=== PATIENT | male | born 1990 | race Two or more races ===

== ENCOUNTER 2016-07-15 15:00 | Inpatient (IN) | payer MEDICAID ==
[~2016-07-15] VITALS: Ht 152.4 cm; Wt 63.5 kg
[~2016-07-15 15:00] MED LIST: Albuterol ud Inhalation ONE; Ipratropium 0.02% Inh Soln 2.5ml UD ONE
[2016-07-15 15:10] VITALS: BP 124/88
[2016-07-15] MEDS ORDERED: Morphine Sulfate 2mg/ml Inj IVP ONE (15:30)
[2016-07-15 15:44] LABS: MEAN CORPUSCULAR HEMOGLOBIN 30.5 PG (27.0-31.0); MEAN CORPUSCULAR HGB CONC 34.3 G/DL (32.0-36.0); MEAN CORPUSCULAR VOLUME 89 FL (80-99); MEAN PLATELET VOLUME 6.2 FL (6.5-10.1); PLATELET COUNT 421 K/UL (150-450); RED BLOOD COUNT 5.78 M/UL (4.70-6.10); RED CELL DISTRIBUTION WIDTH 11.8 % (11.6-14.8)
[2016-07-15 15:49] LABS: WHITE BLOOD COUNT 23.1 K/UL (4.8-10.8)
[2016-07-15 15:59] LABS: ALANINE AMINOTRANSFERASE 52 U/L (3-41); ALBUMIN/GLOBULIN RATIO 1.6 (1.0-2.7); ANION GAP 20 (5-15); ASPARTATE AMINO TRANSFERASE 39 U/L (5-40); CALCIUM 10.4 mg/dL (8.6-10.2); CARBON DIOXIDE 23 mEQ/L (20-30); CHLORIDE 96 mEQ/L (98-107); CREATININE 1.3 mg/dL (0.7-1.2); GLOMERULAR FILTRATION RATE > 60 mL/min (>60); HEMOLYSIS 11; LIPASE 28 U/L (< 60); POTASSIUM 3.7 mEQ/L (3.4-4.9); SODIUM 139 mEQ/L (135-145); TOTAL PROTEIN 9.2 g/dL (6.6-8.7)
[2016-07-15 16:13] LABS: BAND NEUTROPHILS % (MANUAL) 9 % (0-8); BASOPHILS % (MANUAL) 0 % (0-2); EOSINOPHILS % (MANUAL) 0 % (0-3); LYMPHOCYTES % (MANUAL) 28 % (20-45); NEUTROPHILS % (MANUAL) 59 % (45-75); PLATELET ESTIMATE INCREASED; PLATELET MORPHOLOGY NORMAL; TOTAL CELLS COUNTED 100
[2016-07-15 17:14] VITALS: BP 116/81
[2016-07-15] MEDS ORDERED: cefOXitin 1gm Inj ONE (17:43)
[2016-07-15] MEDS: LR 1000ml 1,000 ML IV SCH ×2 (17:47→23:11)
[2016-07-15] MEDS ORDERED: cefOXitin Sod 1 GM in D5W 55 ML IVPB ONE (18:00)
--- NOTE | 2016-07-15 18:14 | Emergency Room Report ---
History of Present Illness General Chief Complaint: Nausea Source: EMS Present Illness HPI The patient is a 25-year-old male brought in by his uncle for nausea, vomiting, and right lower quadrant pain which began this morning. The patient states that he was feeling fine yesterday and suddenly developed nausea and vomiting which was then followed by the abdominal pain. Pain is localized to the right lower cord and it is described as a 10 out of 10 dull ache. Pain worse with movement and touch. Pain does not radiate.The patient also admits to diarrhea. The patient has been feeling chills but denies fever. The patient states that he has felt this way several times over the past few years but has never been diagnosed with anything. The patient denies any medical history Allergies: Coded Allergies: No Known Allergies (Unverified , 07/15/16) Patient History Past Medical History: see triage record Pertinent Family History: none Reviewed Nursing Documentation: PMH: Agreed, PSxH: Agreed Nursing Documentation-PMH Past Medical History: No Stated History Review of Systems All Other Systems: negative except mentioned in HPI Physical Exam Vital Signs Date Time Temp Pulse Resp B/P Pulse Ox O2 Delivery O2 Flow Rate FiO2 07/15/16 14:53 97 18 124/88 98 Room Air 07/15/16 17:14 97.0 Sp02 EP Interpretation: reviewed, normal General Appearance: GCS 15, mild distress, lethargic Head: normocephalic, atraumatic Eyes: bilateral eye PERRL, bilateral eye normal inspection ENT: hearing grossly normal, normal pharynx, no angioedema, normal voice Neck: full range of motion, supple/symm/no masses Respiratory: chest non-tender, lungs clear, normal breath sounds, speaking full sentences Cardiovascular #1: regular rate, rhythm, no edema Gastrointestinal: normal bowel sounds, soft, non-distended, no guarding, no rebound, tenderness - RLQ Genitourinary: normal inspection, no CVA tenderness Musculoskeletal: back normal, gait/station normal, normal range of motion, non- tender Neurologic: alert, oriented x3, responsive, motor strength/tone normal, sensory intact, speech normal Psychiatric: judgement/insight normal, memory normal, mood/affect normal, no suicidal/homicidal ideation Skin: normal color, no rash, warm/dry, well hydrated Lymphatic: no adenopathy Medical Decision Making PA Attestation Dr. Trevino is my supervising physician. Patient management was discussed with my supervising physician Diagnostic Impression: Primary Impression: Abdominal pain ER Course The patient is a 25-year-old male brought in by his uncle for nausea, vomiting, and right lower quadrant pain which began this morning Differential diagnoses considered include but not limited to gastroenteritis, pancreatitis, appendicitis Physical exam: The patient is in mild distress and appears lethargic. HEENT exam is unremarkable Lungs are clear to auscultation bilaterally Skin is warm and dry. No rash Abdomen is soft. There is localized tenderness to palpation over the right lower quadrant. No guarding. Normal bowel sounds. Lab work shows significant leukocytosis at 23,000. The patient is given IV fluids, Zofran, and morphine and is feeling better. Pt placed on NPO CT of the abdomen pelvis has findings consistent with gastroenteritis. There is also an appendicolith but no signs of appendicitis. Dr. Trevino spoke with Dr. Quesada at 18:15. He will come to ER to see the patient. Dr. Quesada does not think this is appendicitis and thinks Hx and findings are more consistent with gastroenteritis. The patient will be admitted in serious but stable condition Laboratory Tests Test 07/15/16 15:23 07/15/16 18:07 White Blood Count 23.1 K/UL (4.8-10.8) *H Red Blood Count 5.78 M/UL (4.70-6.10) Hemoglobin 17.6 G/DL (14.2-18.0) Hematocrit 51.4 % (42.0-52.0) Mean Corpuscular Volume 89 FL (80-99) Mean Corpuscular Hemoglobin 30.5 PG (27.0-31.0) Mean Corpuscular Hemoglobin Concent 34.3 G/DL (32.0-36.0) Red Cell Distribution Width 11.8 % (11.6-14.8) Platelet Count 421 K/UL (150-450) Mean Platelet Volume 6.2 FL (6.5-10.1) L Neutrophils (%) (Auto) % (45.0-75.0) Lymphocytes (%) (Auto) % (20.0-45.0) Monocytes (%) (Auto) % (1.0-10.0) Eosinophils (%) (Auto) % (0.0-3.0) Basophils (%) (Auto) % (0.0-2.0) Differential Total Cells Counted 100 Neutrophils % (Manual) 59 % (45-75) Lymphocytes % (Manual) 28 % (20-45) Monocytes % (Manual) 4 % (1-10) Eosinophils % (Manual) 0 % (0-3) Basophils % (Manual) 0 % (0-2) Band Neutrophils 9 % (0-8) H Platelet Estimate Increased H Platelet Morphology Normal Red Blood Cell Morphology Normal Urine Color Pale yellow Urine Appearance Clear Urine pH 6.5 (4.5-8.0) Urine Specific [place] 1.010 (1.005-1.035) Urine Protein 2+ (NEGATIVE) H Urine Glucose (UA) Negative (NEGATIVE) Urine Ketones Negative (NEGATIVE) Urine Occult Blood Negative (NEGATIVE) Urine Nitrite Negative (NEGATIVE) Urine Bilirubin Negative (NEGATIVE) Urine Urobilinogen Normal MG/DL (0.0-1.0) Urine Leukocyte Esterase Negative (NEGATIVE) Urine RBC 0 /HPF (0 - 0) Urine WBC 0-2 /HPF (0 - 0) Urine Squamous Epithelial Cells None /LPF (NONE/OCC) Urine Bacteria Few /HPF (NONE) Sodium Level 139 mEQ/L (135-145) Potassium Level 3.7 mEQ/L (3.4-4.9) Chloride Level 96 mEQ/L (98-107) L Carbon Dioxide Level 23 mEQ/L (20-30) Anion Gap 20 (5-15) H Blood Urea Nitrogen 17 mg/dL (7-23) Creatinine 1.3 mg/dL (0.7-1.2) H Estimate Glomerular Filtration Rate > 60 mL/min (>60) Glucose Level 156 mg/dL (74-106) H Calcium Level 10.4 mg/dL (8.6-10.2) H Total Bilirubin 0.4 mg/dL (0.0-1.2) Aspartate Amino Transferase (AST) 39 U/L (5-40) Alanine Aminotransferase (ALT) 52 U/L (3-41) H Alkaline Phosphatase 116 U/L (40-129) Total Protein 9.2 g/dL (6.6-8.7) H Albumin 5.7 g/dL (3.5-5.2) H Globulin 3.5 g/dL Albumin/Globulin Ratio 1.6 (1.0-2.7) Lipase 28 U/L (< 60) Urine Opiates Screen Positive (NEGATIVE) H Urine Barbiturates Screen Negative (NEGATIVE) Phencyclidine (PCP) Screen Negative (NEGATIVE) Urine Amphetamines Screen Negative (NEGATIVE) Urine Benzodiazepines Screen Negative (NEGATIVE) Urine Cocaine Screen Negative (NEGATIVE) Urine Marijuana (THC) Screen Positive (NEGATIVE) H Prothrombin Time 10.8 SEC (9.30-11.50) Prothrombin Time INR 1.1 (0.9-1.1) PTT 25 SEC (23-33) Lab Results Impression CBC show significant leukocytosis. Otherwise unremarkable CMP is unremarkable Urinalysis is unremarkable. No signs of infection Drug screen is positive for marijuana CT/MRI/US Diagnostic Results CT/MRI/US Diagnostic Results : Imaging Test Ordered: CT abd/pelvis with IV contrast Impression Per radiologist: There is increased fluid contents with variable distention of stomach, small bowel, and colon. Mild mural thickening of the small bowel. There is prominent appendicolith but no apparent appendicitis. Last Vital Signs Date Time Temp Pulse Resp B/P Pulse Ox O2 Delivery O2 Flow Rate FiO2 07/15/16 17:14 97.0 76 18 116/81 98 Room Air Status: improved Disposition: ADMITTED INPATIENT Condition: Stable RED MOBLEY Jul 15, 2016 18:14
[2016-07-15 18:34] LABS: APPEARANCE,URINE CLEAR; KETONES,URINE NEGATIVE (NEGATIVE); LEUKOCYTE ESTERASE ,URINE NEGATIVE (NEGATIVE); NITRITE,URINE NEGATIVE (NEGATIVE); PH,URINE 6.5 (4.5-8.0); PROTEIN,URINE 2+ (NEGATIVE); UROBILINOGEN,URINE NORMAL MG/DL (0.0-1.0)
[2016-07-15 18:36] LABS: INR 1.1 (0.9-1.1); PROTHROMBIN TIME 10.8 SEC (9.30-11.50)
[2016-07-15 19:04] LABS: RBC,URINE 0 /HPF (0 - 0); WBC,URINE 0-2 /HPF (0 - 0)
[2016-07-15 19:05] LABS: BACTERIA,URINE FEW /HPF
--- NOTE | 2016-07-15 19:15 | General Progress Note ---
Progress Note Progress Note 25 y/o male with hx 6 + years of intermittent abd pain, diarrhea, nausea and vomiting last several days, no fever or chills. Pt came to ED because of exacerbation of old sx. PMHx: no hx IBD, no hx GI bleeding , no hx PUD or gastritis. Exam: VS Stable, afebrile. Lungs: clear Abdomen: soft, BS hyperactive, minimal tenderness RLQ, no guarding, - psoas sign. WBC 23K CAT scan abdomen:sl thickened SB, mostly distal, no appendiceal inflammation. Poss small fecalith. Impression: Viral gastroenteritis vs IBD (doubt IBD), r/o parasitic problem. No evidence clinically of appendicitis or any surgical process. Hydration, observation, no surgery planned at this time, repeat CBC. NIRMALA JOSEPH Jul 15, 2016 19:15
[2016-07-15 19:30] VITALS: BP 132/76
[2016-07-15 22:57] VITALS: BP 122/80
[2016-07-15] MEDS ORDERED: NKM (22:58)
--- NOTE | 2016-07-15 23:38 | Consultation ---
DATE OF CONSULTATION: 07/15/2016 SURGICAL CONSULTATION CONSULTING PHYSICIAN: Timothy Quesada M.D. ATTENDING PHYSICIAN: Not on the chart yet. HISTORY OF PRESENT ILLNESS: The patient is a 25-year-old, black male, who is a very poor historian, and states that approximately 6 years ago or before that when he was still lived in [place], he developed intermittent episodes of abdominal pain with a crampy nature, with associated nausea, vomiting, and diarrhea. Now the same type of problem began in the last few days, but exacerbated today to the point where he came to the emergency room after severe nausea, vomiting and diarrhea and 6 to 10 episodes of very watery bolus. The patient was seen in the emergency room and the patient's assessment saw him obtain limited history probably because of a language barrier, since the patient speaks no Czech. Once I interviewed him, he told me the whole history of several years of diffuse abdominal pain intermittently, no blood in the stool, and some nausea and vomiting and occasional blood when he throws up but because of " ". There is no history of weight loss, no history of melena, or hematochezia. There is no history of chronic cystic disease or inflammatory bowel disease. PAST MEDICAL HISTORY: As above. MEDICATIONS: None. ALLERGIES: None known. REVIEW OF SYSTEMS: HEENT: No headaches, tinnitus, or dysphagia. Cardiopulmonary: No history of chest pain, shortness of breath, cough, or sputum. Gastrointestinal: As above. Genitourinary: No dysuria, hematuria, or obstructive symptoms. PHYSICAL EXAMINATION: VITAL SIGNS: Blood pressure is 110/78, temperature is 97.7 degrees, pulse is 80, respirations are 16 and unlabored. GENERAL: The patient is a well developed, well nourished, middle aged, young dark skin male, in no distress. HEENT: Normal though mucosa was dry. The mouth and throat were clear. NECK: Supple. LUNGS: Clear. HEART: Rhythmic and regular. ABDOMEN: Soft and flat. Bowel sounds are hyperactive. No obstructive signs. There is 1+ right lower quadrant tenderness into the suprapubic area. No mass. No rebound or guarding. There is no flank tenderness. Psoas sign is negative. LABORATORY AND DIAGNOSTIC DATA: White blood count is 23,000, hemoglobin 13, and hematocrit 42. Electrolytes are normal. A CT of the abdomen reveals normal-sized appendix, tiny appendicolith, no inflammatory changes or stranding, some thickening of small bowel stretched in the distal area consistent with possible inflammatory changes from a viral syndrome, gout, inflammatory bowel disease. IMPRESSION: Acute abdominal pain, nausea, vomiting, and diarrhea, most likely secondary to viral gastroenteritis or other similar viral syndrome. There is nothing at this point to support inflammatory bowel disease, but it has to be conservative with differential diagnosis. More important, there is no obvious need for any surgical intervention at this time. There is no evidence of an acute surgical process. The appendix is normal in size and there is a fecalith, but no inflammatory changes. The white count is probably secondary to a viral syndrome. We will follow the patient. The patient will be hydrated, bowel rest instituted and some cultures obtained to make sure he does not have either parasitic or bacterial infection such as Shigella or Salmonella. Timothy Quesada M.D. DR: SUHAS JOB#: [id number] CC:
[2016-07-16] VITALS: BP 96/63
[2016-07-16] MEDS ORDERED: Unasyn 3gm Inj IV SCH
[2016-07-16] MEDS: LR 1000ml 1,000 ML IV SCH ×2 (00:12→00:50)
[2016-07-16] MEDS ORDERED: Morphine Sulfate 2mg/ml Inj IVP PRN (00:30)
[2016-07-16] MEDS ORDERED: Norco 10mg/325mg tab ORAL PRN (00:45)
[2016-07-16] MEDS ORDERED: Unasyn 3gm Inj ONE ×2 (01:57→06:36)
[2016-07-16] MEDS: Unasyn 3gm/NS 110ml IVPB SCH ×8 (02:06→17:25)
[2016-07-16 04:00] VITALS: BP 111/75
[2016-07-16 08:00] VITALS: BP 110/61
[2016-07-16 08:22] LABS: BASOPHILS % (AUTO) 0.7 % (0.0-2.0); LYMPHOCYTES % (AUTO) 17.7 % (20.0-45.0); MEAN CORPUSCULAR HEMOGLOBIN 30.7 PG (27.0-31.0); MEAN CORPUSCULAR HGB CONC 34.9 G/DL (32.0-36.0); MEAN CORPUSCULAR VOLUME 88 FL (80-99); MEAN PLATELET VOLUME 6.4 FL (6.5-10.1); MONOCYTES % (AUTO) 5.4 % (1.0-10.0); NEUTROPHILS % (AUTO) 75.1 % (45.0-75.0); PLATELET COUNT 360 K/UL (150-450); RED BLOOD COUNT 4.89 M/UL (4.70-6.10); RED CELL DISTRIBUTION WIDTH 11.8 % (11.6-14.8); WHITE BLOOD COUNT 8.3 K/UL (4.8-10.8)
[2016-07-16 08:40] LABS: ALANINE AMINOTRANSFERASE 34 U/L (3-41); ALBUMIN/GLOBULIN RATIO 1.6 (1.0-2.7); ANION GAP 18 (5-15); ASPARTATE AMINO TRANSFERASE 27 U/L (5-40); CARBON DIOXIDE 21 mEQ/L (20-30); CHLORIDE 99 mEQ/L (98-107); CREATININE 0.9 mg/dL (0.7-1.2); GLOMERULAR FILTRATION RATE > 60 mL/min (>60); HEMOLYSIS 6; POTASSIUM 3.8 mEQ/L (3.4-4.9); SODIUM 138 mEQ/L (135-145); TOTAL PROTEIN 7.1 g/dL (6.6-8.7)
--- NOTE | 2016-07-16 09:56 | Diagnostic Imaging Report ---
Indication: Abdominal pain Technique: Continuous helical transaxial imaging of the abdomen and pelvis was obtained from the lung bases to the pubic symphysis during intravenous contrast administration. Coronal 2-D reformats were also obtained. Study obtained in a Siemens sensation [address] Total Dose length Product (DLP): [address] Dose Index Volume (CTDIvol): 16 mGy Comparison: None Findings: The lung bases are clear. No abnormalities of the liver, gallbladder, spleen, kidneys identified. There is a complex appearing partially enhancing mass in the left adrenal gland measuring 2.2 x 1.4 CM.. There is also small right adrenal mass measuring 1.3 CM. Further evaluation with MRI is recommended. Liquefied stool demonstrated within the colon and mild distention of small bowel loops, some of which are fluid-filled noted. Findings probably reflect gastroenteritis. These correlate clinically. Prominent appendicoliths are noted. The base of the appendix is normal. There is no evidence of appendicitis. There is no free fluid or free air. Bladder is unremarkable. There is no hydronephrosis. Impression: Suspected gastroenteritis given mild distention of fluid-filled small bowel and liquefied stool in the colon. Appendicoliths with no evidence of acute appendicitis. Bilateral adrenal masses. Suggest further evaluation with MRI. This finding not mentioned in the preliminary interpretation. Final results were conveyed to the emergency department at the time of this dictation 07/16/16, 9:[address] scanner at [facility] is accredited by the [employer] and the scans are performed using protocols designed to limit radiation exposure to as low as reasonably achievable to attain images of sufficient resolution adequate for diagnostic evaluation.
--- NOTE | 2016-07-16 11:41 | General Progress Note ---
Progress Note Progress Note Afebrile, diarrhea persists ( not telling nurse), CAT scan read as bilateral adrenal masses, possible endocrine process causing fluid and electrolyte imbalance and diarrhea (friends at bedside say they have witnessed at least 3 fainting spells during diarrhea episodes?) Abdomen: soft, nontender. WBC normal. Pt needs hydration, stool for O&P, cultures, C Diff. Will need evaluation by thermostat maker as outpt. Nothing surgical at this point. NIRMALA JOSEPH Jul 16, 2016 11:40
--- NOTE | 2016-07-16 14:03 | Infectious Diseases Prog Note ---
Assessment/Plan Problems: (1) Gastroenteritis and colitis, viral Assessment & Plan: will send stool for c diff and culture, and start flagyl (2) Sepsis Assessment & Plan: due to the above, will send blood culture , and start unasyn , monitor WBC. Subjective Allergies: Coded Allergies: No Known Allergies (Unverified , 07/15/16) Objective Vital Signs Last 24 Hour Vital Signs Date Time Temp Pulse Resp B/P Pulse Ox O2 Delivery O2 Flow Rate FiO2 07/16/16 08:00 97.7 75 19 110/61 100 Room Air 07/16/16 04:00 97.7 83 20 111/75 99 Room Air 07/16/16 01:26 Room Air 07/16/16 00:00 97.7 86 20 96/63 97 Room Air 07/15/16 23:33 99.0 89 18 122/80 98 Room Air 07/15/16 22:57 99.0 89 18 122/80 98 Room Air 07/15/16 19:30 98.9 89 16 132/76 98 Room Air 07/15/16 17:14 97.0 76 18 116/81 98 Room Air 07/15/16 15:10 18 124/88 98 Room Air 07/15/16 14:53 97 18 124/88 98 Room Air Height (Feet): 5 Height (Inches): 0.00 Weight (Pounds): 140 Laboratory Tests Test 07/15/16 15:23 07/15/16 18:07 07/16/16 07:15 White Blood Count 23.1 K/UL (4.8-10.8) *H 8.3 K/UL (4.8-10.8) # Red Blood Count 5.78 M/UL (4.70-6.10) 4.89 M/UL (4.70-6.10) Hemoglobin 17.6 G/DL (14.2-18.0) 15.0 G/DL (14.2-18.0) Hematocrit 51.4 % (42.0-52.0) 42.9 % (42.0-52.0) Mean Corpuscular Volume 89 FL (80-99) 88 FL (80-99) Mean Corpuscular Hemoglobin 30.5 PG (27.0-31.0) 30.7 PG (27.0-31.0) Mean Corpuscular Hemoglobin Concent 34.3 G/DL (32.0-36.0) 34.9 G/DL (32.0-36.0) Red Cell Distribution Width 11.8 % (11.6-14.8) 11.8 % (11.6-14.8) Platelet Count 421 K/UL (150-450) 360 K/UL (150-450) Mean Platelet Volume 6.2 FL (6.5-10.1) L 6.4 FL (6.5-10.1) L Neutrophils (%) (Auto) % (45.0-75.0) 75.1 % (45.0-75.0) H Lymphocytes (%) (Auto) % (20.0-45.0) 17.7 % (20.0-45.0) L Monocytes (%) (Auto) % (1.0-10.0) 5.4 % (1.0-10.0) Eosinophils (%) (Auto) % (0.0-3.0) 1.0 % (0.0-3.0) Basophils (%) (Auto) % (0.0-2.0) 0.7 % (0.0-2.0) Differential Total Cells Counted 100 Neutrophils % (Manual) 59 % (45-75) Lymphocytes % (Manual) 28 % (20-45) Monocytes % (Manual) 4 % (1-10) Eosinophils % (Manual) 0 % (0-3) Basophils % (Manual) 0 % (0-2) Band Neutrophils 9 % (0-8) H Platelet Estimate Increased H Platelet Morphology Normal Red Blood Cell Morphology Normal Urine Color Pale yellow Urine Appearance Clear Urine pH 6.5 (4.5-8.0) Urine Specific [place] 1.010 (1.005-1.035) Urine Protein 2+ (NEGATIVE) H Urine Glucose (UA) Negative (NEGATIVE) Urine Ketones Negative (NEGATIVE) Urine Occult Blood Negative (NEGATIVE) Urine Nitrite Negative (NEGATIVE) Urine Bilirubin Negative (NEGATIVE) Urine Urobilinogen Normal MG/DL (0.0-1.0) Urine Leukocyte Esterase Negative (NEGATIVE) Urine RBC 0 /HPF (0 - 0) Urine WBC 0-2 /HPF (0 - 0) Urine Squamous Epithelial Cells None /LPF (NONE/OCC) Urine Bacteria Few /HPF (NONE) Sodium Level 139 mEQ/L (135-145) 138 mEQ/L (135-145) Potassium Level 3.7 mEQ/L (3.4-4.9) 3.8 mEQ/L (3.4-4.9) Chloride Level 96 mEQ/L (98-107) L 99 mEQ/L (98-107) Carbon Dioxide Level 23 mEQ/L (20-30) 21 mEQ/L (20-30) Anion Gap 20 (5-15) H 18 (5-15) H Blood Urea Nitrogen 17 mg/dL (7-23) 9 mg/dL (7-23) Creatinine 1.3 mg/dL (0.7-1.2) H 0.9 mg/dL (0.7-1.2) Estimat Glomerular Filtration Rate > 60 mL/min (>60) > 60 mL/min (>60) Glucose Level 156 mg/dL (74-106) H 109 mg/dL (74-106) H Calcium Level 10.4 mg/dL (8.6-10.2) H 9.0 mg/dL (8.6-10.2) Total Bilirubin 0.4 mg/dL (0.0-1.2) 0.9 mg/dL (0.0-1.2) Aspartate Amino Transf (AST/SGOT) 39 U/L (5-40) 27 U/L (5-40) Alanine Aminotransferase (ALT/SGPT) 52 U/L (3-41) H 34 U/L (3-41) Alkaline Phosphatase 116 U/L (40-129) 77 U/L (40-129) Total Protein 9.2 g/dL (6.6-8.7) H 7.1 g/dL (6.6-8.7) Albumin 5.7 g/dL (3.5-5.2) H 4.4 g/dL (3.5-5.2) Globulin 3.5 g/dL 2.7 g/dL Albumin/Globulin Ratio 1.6 (1.0-2.7) 1.6 (1.0-2.7) Lipase 28 U/L (< 60) Urine Opiates Screen Positive (NEGATIVE) H Urine Barbiturates Screen Negative (NEGATIVE) Phencyclidine (PCP) Screen Negative (NEGATIVE) Urine Amphetamines Screen Negative (NEGATIVE) Urine Benzodiazepines Screen Negative (NEGATIVE) Urine Cocaine Screen Negative (NEGATIVE) Urine Marijuana (THC) Screen Positive (NEGATIVE) H Prothrombin Time 10.8 SEC (9.30-11.50) Prothromb Time International Ratio 1.1 (0.9-1.1) Activated Partial Thromboplast Time 25 SEC (23-33) Current Medications Medications (Trade) Dose Ordered Sig/Shelia Route PRN Reason Start Time Stop Time Status Last Admin Dose Admin Acetaminophen (Tylenol) 650 mg Q4H PRN ORAL fever 07/16/16 00:30 08/15/16 00:29 Acetaminophen/ Hydrocodone Bitart ([place] 10/325) 1 ea Q4H PRN ORAL Moderate Pain (Pain Scale 4-6) 07/16/16 00:45 07/23/16 00:44 Ampicillin Sodium/ Sulbactam Sodium 3 gm/Sodium Chloride 110 ml @ 220 mls/hr Q6HR IVPB 07/16/16 00:00 07/23/16 00:00 07/16/16 13:42 Dextrose (Dextrose 50%) STAT PRN IV Hypoglycemia 07/16/16 00:30 08/15/16 00:29 Dextrose/ Electrolytes (D5NS W/KCl 20meq 1000ml) 1,000 ml @ 100 mls/hr Q10H IV 07/16/16 01:29 08/15/16 01:28 07/16/16 13:29 Morphine Sulfate (Morphine Sulfate) 2 mg Q4H PRN IVP Severe Pain (Pain Scale 7-10) 07/16/16 00:30 07/23/16 00:29 Ondansetron HCl (Zofran) 4 mg Q6H PRN IVP Nausea & Vomiting 07/16/16 00:30 08/15/16 00:29 Margy Childress M.D. Jul 16, 2016 14:03
[2016-07-16 14:26] VITALS: BP 110/72
[2016-07-16] MEDS: metroNIDAZOLE 500mg tab ORAL SCH ×2 (15:46→22:21)
[2016-07-16 16:00] VITALS: BP 117/67
[2016-07-16 20:00] VITALS: BP 114/68
--- NOTE | 2016-07-16 20:29 | History and Physical ---
History of Present Illness General Date patient seen: Jul 16, 2016 Reason for Hospitalization: Nausea Present Illness HPI 25 y/o male with no significant PMH who presented to the ED c/o abdominal pain associated with nausea, vomiting, and diarrhea. He does report having similar episodes in the past. Denies fever/chills. Denies weight loss or blood in the stool. CT A/P showed appendolith without evidence of acute appendicitis. He was admitted for further care. Allergies: Coded Allergies: No Known Allergies (Unverified , 07/15/16) Medication History Scheduled No Known Medications* (NKM - No Known Medications*), 0 ., (Reported) Patient History History Provided By: Patient, Medical Record Healthcare decision maker Resuscitation status Full Code Advanced Directive on File No Past Medical/Surgical History Past Medical/Surgical History: (1) Abdominal pain Review of Systems All Other Systems: negative except mentioned in HPI Physical Exam General Appearance: WD/WN, no apparent distress HEENT: normocephalic, atraumatic Neck: supple Respiratory/Chest: lungs clear Cardiovascular/Chest: normal rate, regular rhythm Abdomen: non tender, soft Extremities: no edema Neurologic: alert, oriented x 3 Last 24 Hour Vital Signs Date Time Temp Pulse Resp B/P Pulse Ox O2 Delivery O2 Flow Rate FiO2 07/16/16 16:00 97.5 71 16 117/67 96 Room Air 07/16/16 14:26 98.1 74 21 110/72 97 Room Air 07/16/16 08:00 97.7 75 19 110/61 100 Room Air 07/16/16 04:00 97.7 83 20 111/75 99 Room Air 07/16/16 01:26 Room Air 07/16/16 00:00 97.7 86 20 96/63 97 Room Air 07/15/16 23:33 99.0 89 18 122/80 98 Room Air 07/15/16 22:57 99.0 89 18 122/80 98 Room Air Intake and Output 07/15/16 07/16/16 19:00 07:00 Intake Total 1000 ml 1615 ml Balance 1000 ml 1615 ml Intake Oral 0 ml IV Total 1000 ml 1615 ml # Voids 4 # Bowel Movements 1 Laboratory Tests Test 07/16/16 07:15 White Blood Count 8.3 K/UL (4.8-10.8) # Red Blood Count 4.89 M/UL (4.70-6.10) Hemoglobin 15.0 G/DL (14.2-18.0) Hematocrit 42.9 % (42.0-52.0) Mean Corpuscular Volume 88 FL (80-99) Mean Corpuscular Hemoglobin 30.7 PG (27.0-31.0) Mean Corpuscular Hemoglobin Concent 34.9 G/DL (32.0-36.0) Red Cell Distribution Width 11.8 % (11.6-14.8) Platelet Count 360 K/UL (150-450) Mean Platelet Volume 6.4 FL (6.5-10.1) L Neutrophils (%) (Auto) 75.1 % (45.0-75.0) H Lymphocytes (%) (Auto) 17.7 % (20.0-45.0) L Monocytes (%) (Auto) 5.4 % (1.0-10.0) Eosinophils (%) (Auto) 1.0 % (0.0-3.0) Basophils (%) (Auto) 0.7 % (0.0-2.0) Sodium Level 138 mEQ/L (135-145) Potassium Level 3.8 mEQ/L (3.4-4.9) Chloride Level 99 mEQ/L (98-107) Carbon Dioxide Level 21 mEQ/L (20-30) Anion Gap 18 (5-15) H Blood Urea Nitrogen 9 mg/dL (7-23) Creatinine 0.9 mg/dL (0.7-1.2) Estimat Glomerular Filtration Rate > 60 mL/min (>60) Glucose Level 109 mg/dL (74-106) H Calcium Level 9.0 mg/dL (8.6-10.2) Total Bilirubin 0.9 mg/dL (0.0-1.2) Aspartate Amino Transf (AST/SGOT) 27 U/L (5-40) Alanine Aminotransferase (ALT/SGPT) 34 U/L (3-41) Alkaline Phosphatase 77 U/L (40-129) Total Protein 7.1 g/dL (6.6-8.7) Albumin 4.4 g/dL (3.5-5.2) Globulin 2.7 g/dL Albumin/Globulin Ratio 1.6 (1.0-2.7) Height (Feet): 5 Height (Inches): 0.00 Weight (Pounds): 140 Medications Current Medications Medications (Trade) Dose Ordered Sig/Shelia Route PRN Reason Start Time Stop Time Status Last Admin Dose Admin Acetaminophen (Tylenol) 650 mg Q4H PRN ORAL fever 07/16/16 00:30 08/15/16 00:29 Acetaminophen/ Hydrocodone Bitart ([place] 10/325) 1 ea Q4H PRN ORAL Moderate Pain (Pain Scale 4-6) 07/16/16 00:45 07/23/16 00:44 Ampicillin Sodium/ Sulbactam Sodium 3 gm/Sodium Chloride 110 ml @ 220 mls/hr Q6HR IVPB 07/16/16 00:00 07/23/16 00:00 07/16/16 17:25 Dextrose (Dextrose 50%) STAT PRN IV Hypoglycemia 07/16/16 00:30 08/15/16 00:29 Dextrose/ Electrolytes (D5NS W/KCl 20meq 1000ml) 1,000 ml @ 100 mls/hr Q10H IV 07/16/16 01:29 08/15/16 01:28 07/16/16 13:29 Metronidazole (Flagyl) 500 mg Q8HR ORAL 07/16/16 14:15 07/23/16 14:14 07/16/16 15:46 Morphine Sulfate (Morphine Sulfate) 2 mg Q4H PRN IVP Severe Pain (Pain Scale 7-10) 07/16/16 00:30 07/23/16 00:29 Ondansetron HCl (Zofran) 4 mg Q6H PRN IVP Nausea & Vomiting 07/16/16 00:30 08/15/16 00:29 Assessment/Plan Problem List: (1) Abdominal pain ICD Codes: R10.9 - Unspecified abdominal pain SNOMED: 80165181 (2) Gastroenteritis and colitis, viral ICD Codes: A08.4 - Viral intestinal infection, unspecified SNOMED: 398661664 (3) KELSEY (acute kidney injury) ICD Codes: N17.9 - Acute kidney failure, unspecified SNOMED: 06974966 Assessment/Plan NPO. IVF. GI consult with Dr. Naranjo. Surgery following - altho likely nonsurgical issue. Pain management. D/w Dr. Ashley. AUGUSTINE SAUCEDO Jul 16, 2016 20:29
--- NOTE | 2016-07-16 21:18 | Consultation ---
DATE OF CONSULTATION: REQUESTING PHYSICIAN: Richard Ashley M.D. REASON FOR CONSULTATION: Right lower abdominal pain, possible appendicitis with diarrhea. Recommendation for antibiotics therapy. HISTORY OF PRESENT ILLNESS: The patient is a 25-year-old male who presents to the emergency room at [facility] with abdominal pain associated with nausea, vomiting, and diarrhea which has been going on for the last couple of days. His abdominal pain got worse with vomiting and diarrhea to the point that he has watery stools up to six bowel movements per day. The patient denied any blood in the stool. He has had similar symptom about 7 years ago in the past when he was in [place]. Denied any fever or chills. No weight loss. No hematochezia or melena. The patient had CT scan of abdomen and pelvis showed a normal size appendix, tiny appendicolith, and thickening of the small bowel suspicious for inflammation so he was admitted to the hospital and evaluated by general surgery and I was consulted by the primary provider for antibiotics recommendation and further management. PAST MEDICAL HISTORY: A 12-point of system reviewed were all negative apart from the one I mentioned above in my History and Physical. PAST MEDICAL HISTORY: Negative. PAST SURGICAL HISTORY: Negative. ALLERGIES: No known drug allergy. FAMILY HISTORY: Noncontributory. SOCIAL HISTORY: Denies tobacco, drugs, or alcohol. MEDICATIONS: He has received cefoxitin in the emergency room. For the rest of his medications, please refer to MAR. LABORATORY DATA: Showed white count of 8.3, down from 23.1, hemoglobin of 15, and platelet count of 316. BUN 9, creatinine 0.9. Urinalysis negative for urinary tract infection. IMAGING: CT scan of the abdomen and pelvis showed gastroenteritis, given mild distention of fluid filled small bowel and Liquified stool in the colon. Appendicolith with no evidence of acute appendicitis. PHYSICAL EXAMINATION: VITAL SIGNS: Temperature 97.7, pulse 75, respirations 19, blood pressure 110/61, pulse oximetry 100% on room air. GENERAL: Young male, lying in bed, Austrian speaker, alert, not in distress. HEENT: Normocephalic and atraumatic. Pupils reactive to light. Moist oral mucosa. No exudate. NECK: Supple. No lymphadenopathy. CARDIOVASCULAR: Regular rate and rhythm. No murmur. LUNGS: Clear bilaterally. ABDOMEN: Soft, nontender, nondistended. Positive bowel sounds. No hepatosplenomegaly. No ascites. EXTREMITIES: No edema or cyanosis. ASSESSMENT AND PLAN: 1. Abdominal pain, nausea, and vomiting. Differential include gastroenteritis versus C. difficile. We will send stool for culture and C. difficile toxin. We will start the patient on Flagyl and Unasyn empirically. We will monitor symptoms in the hospital. The patient already evaluated by General surgery, no indication for appendectomy at this time. 2. Sepsis with leukocytosis due to abdominal pain, nausea, and vomiting. Continue intravenous antibiotics. Wide spectrum coverage and monitor culture. Margy Childress M.D. DR: Mandie JOB#: [id number] CC:
[2016-07-17 00:48] VITALS: BP 116/70
[2016-07-17] MEDS: Unasyn 3gm/NS 110ml IVPB SCH ×8 (00:55→17:57)
[2016-07-17 04:00] VITALS: BP 111/56
[2016-07-17] MEDS: metroNIDAZOLE 500mg tab ORAL SCH ×3 (06:27→21:54)
[2016-07-17 08:00] VITALS: BP 106/59
--- NOTE | 2016-07-17 11:33 | General Progress Note ---
Progress Note Progress Note Afebrile, less diarrhea, no n/v. Hungry. All infectious test negative thus far. Abdomen: soft Will see prn, no acute surgical issues. 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
[2016-07-17 12:00] VITALS: BP 116/64
[2016-07-17 16:28] VITALS: BP 115/65
[2016-07-17 20:00] VITALS: BP 115/71
--- NOTE | 2016-07-17 20:23 | Nephrology Progress Note ---
Assessment/Plan Problem List: (1) Gastroenteritis and colitis, viral (2) Abdominal pain (3) KELSEY (acute kidney injury) (4) Sepsis Plan advance diet. IVF. d/c plan for am if ok with surg. Subjective Subjective abd pain better. no n/v. Objective Objective Last 24 Hour Vital Signs Date Time Temp Pulse Resp B/P Pulse Ox O2 Delivery O2 Flow Rate FiO2 07/17/16 16:28 98.1 82 19 115/65 99 Room Air 07/17/16 12:00 97.5 67 20 116/64 99 Room Air 07/17/16 08:00 96.1 77 20 106/59 99 Room Air 07/17/16 04:00 97.7 76 21 111/56 98 Room Air 07/17/16 00:48 97.2 73 18 116/70 99 Room Air Intake and Output 07/16/16 07/17/16 19:00 07:00 Intake Total 1730 ml 2320 ml Output Total 800 ml Balance 930 ml 2320 ml IV Total 1730 ml 2320 ml Output Urine Total 800 ml # Voids 1 1 # Bowel Movements 7 Height (Feet): 5 Height (Inches): 0.00 Weight (Pounds): 140 General Appearance: no apparent distress Cardiovascular: normal rate, regular rhythm Respiratory/Chest: lungs clear Abdomen: non tender, soft Extremities: non-pitting Neurologic: alert, oriented x 3 HUSSEIN CEDILLO Jul 17, 2016 20:23
[2016-07-18 00:41] VITALS: BP 105/61
[2016-07-18 04:00] VITALS: BP 99/56
[2016-07-18] MEDS: Unasyn 3gm/NS 110ml IVPB SCH ×6 (06:02→13:06)
[2016-07-18] MEDS: metroNIDAZOLE 500mg tab ORAL SCH ×2 (06:03→14:31)
[2016-07-18 08:00] VITALS: BP 126/73
--- NOTE | 2016-07-18 11:03 | General Progress Note ---
Progress Note Progress Note Surgery Patient seen and examined. doing well. no issue. no pain. no n/v/f/c. 1x normal BM today. Wants to go home. wants to eat viral gastroenteritis; resolving -okay to d/c from surgical standpoint Jamie Vail Jul 18, 2016 11:03
[2016-07-18 12:37] VITALS: BP 94/56
--- NOTE | 2016-07-18 15:56 | Infectious Diseases Prog Note ---
Assessment/Plan Problems: (1) Gastroenteritis and colitis, viral Assessment & Plan: stool for C.Diff and culture is negative , stop Flagyl (2) Sepsis Assessment & Plan: ruled out , due to the above, blood culture is negative , stop unasyn , monitor WBC. Subjective Constitutional: Denies: anorexia, chills, drenching sweats, fatigue, fever, no symptoms, other HEENT: Denies: congestion, coryza, dysphagia, hearing change, no symptoms, other, visual change Respiratory: Denies: dry cough, no symptoms, other, productive cough, shortness of breath Breasts: Denies: discharge, no symptoms, other, swelling, tenderness Cardiovascular: Denies: chest pain, dyspnea on exertion, no symptoms, other, palpitations Gastrointestinal/Abdominal: Denies: bloating, blood in stool, constipation, diarrhea, nausea, no symptoms, other, vomiting Genitourinary: Denies: dysuria, frequency, hematuria, no symptoms, nocturia, other Neurologic: Denies: confusion, headache, no symptoms, numbness, other, weakness Psychiatric: Denies: anxiety, depression, no symptoms, other Skin: Denies: no symptoms, other, rash, ulcer Allergies: Coded Allergies: No Known Allergies (Unverified , 07/15/16) Objective Vital Signs Last 24 Hour Vital Signs Date Time Temp Pulse Resp B/P Pulse Ox O2 Delivery O2 Flow Rate FiO2 07/18/16 12:37 97.2 69 20 94/56 99 Room Air 07/18/16 08:00 98.1 77 20 126/73 99 Room Air 07/18/16 04:00 97.2 71 20 99/56 99 Room Air 07/18/16 00:41 97.2 68 20 105/61 99 Room Air 07/17/16 20:00 97.9 83 19 115/71 99 Room Air 07/17/16 16:28 98.1 82 19 115/65 99 Room Air Height (Feet): 5 Height (Inches): 0.00 Weight (Pounds): 140 General Appearance: WD/WN, no acute distress HEENT: normocephalic, atraumatic, anicteric Respiratory/Chest: chest wall non-tender, lungs clear, normal breath sounds, no respiratory distress, no accessory muscle use Cardiovascular: normal peripheral pulses, normal rate, regular rhythm, no gallop/murmur Abdomen: normal bowel sounds, soft, non tender, no organomegaly, non distended , no mass Extremities: no cyanosis, no clubbing Skin: no rash, no lesions Microbiology Date/Time Source Procedure Growth Status 07/15/16 18:00 Blood Blood Culture - Preliminary NO GROWTH AFTER 48 HOURS Resulted 07/15/16 17:45 Blood Blood Culture - Preliminary NO GROWTH AFTER 48 HOURS Resulted 07/16/16 12:00 Stool Stool Culture - Preliminary NO SALMONELLA,SHIGELLA,OR CAMPYLOBACT... Resulted 07/16/16 12:00 Stool Clostridium difficile Toxin Assay - Final Complete Current Medications Medications (Trade) Dose Ordered Sig/Shelia Route PRN Reason Start Time Stop Time Status Last Admin Dose Admin Acetaminophen (Tylenol) 650 mg Q4H PRN ORAL fever 07/16/16 00:30 08/15/16 00:29 Acetaminophen/ Hydrocodone Bitart ([place] 10/325) 1 ea Q4H PRN ORAL Moderate Pain (Pain Scale 4-6) 07/16/16 00:45 07/23/16 00:44 Dextrose (Dextrose 50%) STAT PRN IV Hypoglycemia 07/16/16 00:30 08/15/16 00:29 Morphine Sulfate (Morphine Sulfate) 2 mg Q4H PRN IVP Severe Pain (Pain Scale 7-10) 07/16/16 00:30 07/23/16 00:29 Ondansetron HCl (Zofran) 4 mg Q6H PRN IVP Nausea & Vomiting 07/16/16 00:30 08/15/16 00:29 Margy Childress M.D. Jul 18, 2016 15:56
[2016-07-18 16:26] VITALS: BP 115/78
--- NOTE | 2016-07-19 11:20 | Discharge Summary ---
Discharge Summary Hospital Course Date of Admission Jul 15, 2016 at 19:17 Date of Discharge Jul 18, 2016 at 18:35 Admitting Diagnosis possible appendicitis HPI Timmy Singh is a 25 year old male who was admitted on Jul 15, 2016 at 19:17 for Possible Appendicitis Hospital Course dc summary #[id number] Discharge Condition Upon Discharge: stable Discharge Disposition Patient was discharged to Home (01) Discharge Diagnoses: Discharge Instructions Discharge Instructions Special Instructions I have been assigned to complete a D/C Summary on this account. I was not involved in the patient management Charlotte Chapa NP (Vanchtein) Jul 19, 2016 11:20
--- NOTE | 2016-07-20 02:30 | Discharge Summary 2 SIG ---
DATE OF ADMISSION: 07/15/2016 DATE OF DISCHARGE: 07/18/2016 REASON FOR ADMISSION: 25-year-old male was brought to the emergency room by his uncle for nausea, vomiting, and right lower quadrant abdominal pain since morning. The patient stated that he developed nausea and vomiting followed by abdominal pain. The pain localized to right lower quadrant, described as 10/10 on a scale 1 to 10, worse with movement and touch, and non radiating. In addition, the patient admitted to diarrhea. No blood in stool. No fever. No chills. No prior medical history. CT of the abdomen and pelvis done in the emergency room was consistent with gastroenteritis. There was also appendicolith , but no signs of appendicitis. Lab work revealed leukocytosis of 23,000. Abdominal exam reveals localized tenderness of the right lower quarter, but no guarding. Normal bowel sounds. The patient was placed NPO , started on the IV fluids. Analgesia provided. Antiemetic provided. Surgeon consulted to see the patient in the emergency room. ADMITTING DIAGNOSES: 1. Acute gastroenteritis 2. Possible appendicitis. 2. Abdominal pain. 3. Leukocytosis. HOSPITAL COURSE: The surgeon seen the patient in the emergency room. CT of the abdomen revealed normal sized appendix , tiny appendicolith, no inflammatory changes or stranding, some peaking of small bowel stretched in the distal area consistent with inflammatory changes from the viral syndrome or inflammatory bowel disease , most likely gastroenteritis. According to the surgeon, his clinical presentation was most likely secondary to viral gastroenteritis. He recommended supportive care. No obvious need for surgical intervention. No acute surgical process as per surgeon. He recommended continue hydration and bowel rest. ID doctor was also involved in care of this patient. The patient started on empiric antibiotics. Leukocytosis resolved. Blood culture negative. Stool culture negative. Stool for C. difficile negative. Leukocytosis resolved. The patient started on clear liquid diet and slowly advanced. Antiemetic provided as needed. The patient was able to tolerate diet. No nausea. No vomiting. Abdominal pain resolved. Initially on presentation, creatinine was 1.3 likely secondary to dehydration due to vomiting and diarrhea, it resolved. Creatinine down to normal. The patient was stable for discharge. Cleared by surgeon and ID. DISCHARGE DIAGNOSES: 1. Possible sepsis. 2. Viral gastroenteritis. 3. Abdominal pain secondary to viral gastroenteritis, resolved. 4. Acute kidney injury (initially) likely secondary to dehydration due to diarrhea and vomiting, resolved. 5. Leukocytosis, resolved. DISCHARGE MEDICATIONS: None, antibiotics discontinued as per ID recommendations DISCHARGE INSTRUCTIONS: The patient to follow up with primary medical doctor. Richard Ashley M.D. I have been assigned to dictate discharge summary on this account and I was not involved in the patient's management. Charlotte Mojicaagustín NHortenciaPHortencia DR: Johnna JOB#: [id number] CC: LONNIE
== END 2016-07-18 18:35 | disposition home or self-care (01) | DRG 720 ==
LOC: EDBD 15:00 → EMR 18:39 → 3E 19:17 → EDBEDREQ 22:52 → 3E 07-16 07:53
DX: A41.89 Other specified sepsis (principal); N17.9 Acute kidney failure, unspecified; A08.4 Viral intestinal infection, unspecified; E86.0 Dehydration
CPT/HCPCS: 36415; 74177; 80053; 80300; 81003; 83690; 85007; 85025; 85610; 85730; 87040; 87045; 87493; J2405

== ENCOUNTER 2016-07-20 06:25 | Emergency (ER) | payer MEDICAID ==
[~2016-07-20] VITALS: Ht 152.4 cm; Wt 55.3 kg
[~2016-07-20 06:25] MED LIST changes: -Albuterol ud Inhalation ONE; -Ipratropium 0.02% Inh Soln 2.5ml UD ONE; +NKM
[2016-07-20] MEDS ORDERED: NKM (06:40)
[2016-07-20 06:50] VITALS: BP 134/83
[2016-07-20] MEDS ORDERED: LR IV SCH (07:00)
[2016-07-20] MEDS ORDERED: Famotidine 20 MG/ 2ML VIAL IVP ONE (07:00)
[2016-07-20 07:20] LABS: BASOPHILS % (AUTO) 1.1 % (0.0-2.0); EOSINOPHILS % (AUTO) 0.6 % (0.0-3.0); LYMPHOCYTES % (AUTO) 25.7 % (20.0-45.0); MEAN CORPUSCULAR HEMOGLOBIN 29.7 PG (27.0-31.0); MEAN CORPUSCULAR HGB CONC 33.7 G/DL (32.0-36.0); MEAN CORPUSCULAR VOLUME 88 FL (80-99); MEAN PLATELET VOLUME 6.5 FL (6.5-10.1); MONOCYTES % (AUTO) 6.9 % (1.0-10.0); NEUTROPHILS % (AUTO) 65.8 % (45.0-75.0); PLATELET COUNT 420 K/UL (150-450); RED BLOOD COUNT 5.24 M/UL (4.70-6.10); RED CELL DISTRIBUTION WIDTH 11.6 % (11.6-14.8); WHITE BLOOD COUNT 10.4 K/UL (4.8-10.8)
[2016-07-20 07:34] VITALS: BP 135/81
[2016-07-20] MEDS ORDERED: PEPCID20 MG ORAL (07:43)
[2016-07-20] MEDS ORDERED: ZOFRAN ODT4 MG ORAL (07:43)
[2016-07-20] MEDS ORDERED: Metoclopramide 10mg/2ml Inj ONE (07:43)
--- NOTE | 2016-07-20 07:47 | Emergency Room Report ---
History of Present Illness General Chief Complaint: Abdominal Pain Source: Patient Present Illness HPI 25 YO M presents with epigastric pain and vomiting x1 after drinking milk this morning. Patient was just discharged from hospital 1-2 days ago after admission for gastroenteritis/enteritis seen on CTAP. Was admitted for RLQ pain , leukocytosis and concern for appendicitis (appendocolith but NOT appendicitis on CT). Patient was discharged without any medication. Blood and Stool Cx were negative, leuks downtrended at time of DC. Denies fever/chills, diarrhea, other medical problems, previous surgery. Allergies: Coded Allergies: No Known Allergies (Unverified , 07/20/16) Patient History Past Medical History: none Past Surgical History: none Pertinent Family History: none Social History: Denies: alcohol use, drug use, smoking Immunizations: UTD Reviewed Nursing Documentation: PMH: Agreed, PSxH: Agreed Nursing Documentation-PMH Past Medical History: No Stated History Hx Cardiac Problems: No Hx Gastrointestinal Problems: Yes Hx Neurological Problems: No Review of Systems All Other Systems: negative except mentioned in HPI Physical Exam Vital Signs Date Time Temp Pulse Resp B/P Pulse Ox O2 Delivery O2 Flow Rate FiO2 07/20/16 06:33 98.2 98 16 131/92 98 Room Air Sp02 EP Interpretation: reviewed, normal General Appearance: normal inspection, well appearing, no apparent distress, alert, GCS 15, non-toxic Head: normocephalic, atraumatic Eyes: bilateral eye EOMI, bilateral eye PERRL ENT: normal ENT inspection, hearing grossly normal, normal voice Neck: normal inspection, full range of motion, supple, no bony tend Respiratory: normal inspection, lungs clear, normal breath sounds, no rhonchi, no respiratory distress, no retraction, no accessory muscle use, no wheezing Cardiovascular #1: regular rate, rhythm, no edema Gastrointestinal: normal inspection, normal bowel sounds, soft, non-distended, no guarding, no hernia, no pulsatile mass, no rebound, other - Mild epigastric tttp Genitourinary: no CVA tenderness Musculoskeletal: normal inspection, back normal, normal range of motion, Tamiko' s Sign negative Neurologic: normal inspection, alert, oriented x3, responsive, fitness consultant III-XII nml as tested, motor strength/tone normal, speech normal Psychiatric: normal inspection, judgement/insight normal, mood/affect normal Skin: normal inspection, normal color, no rash Lymphatic: normal inspection Medical Decision Making Diagnostic Impression: Primary Impression: Gastroenteritis and colitis, viral ER Course Labs: No leuks. H&H stable. Mild AST/ALT elevation. Bili normal. Likely continued gastroenteritis Advised to avoid milk products Low suspicion for acute bacterial or surgical process given recent CTAP and labwork Improved after anti-emetic, IVF hydration DC with Pepcid, Zofran PRN PMD followup Last Vital Signs Date Time Temp Pulse Resp B/P Pulse Ox O2 Delivery O2 Flow Rate FiO2 07/20/16 07:34 97.1 67 16 135/81 100 Room Air Status: improved Disposition: HOME, SELF-CARE Condition: Improved Scripts Ondansetron Odt* (ZOFRAN ODT*) 4 Mg Tab.rapdis 4 MG ORAL BID Y for Nausea & Vomiting for 7 Days, #14 TAB 0 Refills Prov: MYLENE CABA M.D. 07/20/16 Famotidine (PEPCID) 20 Mg Tablet 20 MG ORAL BID for 7 Days, #14 TAB 0 Refills Prov: MYLENE CABA M.D. 07/20/16 Referrals: NOT CHOSEN IPA/,REFERRING (PCP) Patient Instructions: Viral Gastroenteritis, Adult Additional Instructions: - Lidia zofran para nausea or vomito si quieres - "BRAT" comida solamente - bananas/rice/apple sauce/toast - Lidia mucho agua. No leche! - Lidia la medicine "pepcid" dos tiempos para jennifer para doris semana MYLENE CABA M.D. Jul 20, 2016 07:47
[2016-07-20 07:50] LABS: ALANINE AMINOTRANSFERASE 75 U/L (3-41); ALBUMIN/GLOBULIN RATIO 1.3 (1.0-2.7); ANION GAP 20 (5-15); ASPARTATE AMINO TRANSFERASE 81 U/L (5-40); CALCIUM 10.1 mg/dL (8.6-10.2); CARBON DIOXIDE 24 mEQ/L (20-30); CHLORIDE 91 mEQ/L (98-107); CREATININE 0.9 mg/dL (0.7-1.2); GLOMERULAR FILTRATION RATE > 60 mL/min (>60); HEMOLYSIS 12; LIPASE 27 U/L (< 60); POTASSIUM 3.6 mEQ/L (3.4-4.9); SODIUM 135 mEQ/L (135-145); TOTAL PROTEIN 8.6 g/dL (6.6-8.7)
[2016-07-20] MEDS ORDERED: Metoclopramide 10mg/2ml Inj IVP ONE (08:00)
[2016-07-20 08:44] VITALS: BP 123/78
== END 2016-07-20 08:44 | disposition home or self-care (01) ==
LOC: EMR 06:46
DX: K52.9 Noninfective gastroenteritis and colitis, unspecified (principal); B34.9 Viral infection, unspecified
CPT/HCPCS: 36415; 80053; 83690; 85025; 96360; 96374; 99284; J2405; J2765; J7120; S0028

== ENCOUNTER 2016-07-20 13:44 | Inpatient (IN) | payer MEDICAID ==
[~2016-07-20] VITALS: Ht 157.5 cm; Wt 59.0 kg
[~2016-07-20 13:44] MED LIST changes: +PEPCID20 MG ORAL; +ZOFRAN ODT4 MG ORAL
[2016-07-20 14:30] VITALS: BP 106/66
[2016-07-20] MEDS ORDERED: Famotidine 20 MG/ 2ML VIAL IVP ONE (14:45)
[2016-07-20 16:36] LABS: BASOPHILS % (AUTO) 0.8 % (0.0-2.0); LYMPHOCYTES % (AUTO) 12.9 % (20.0-45.0); MEAN CORPUSCULAR HEMOGLOBIN 30.8 PG (27.0-31.0); MEAN CORPUSCULAR HGB CONC 35.9 G/DL (32.0-36.0); MEAN CORPUSCULAR VOLUME 86 FL (80-99); MEAN PLATELET VOLUME 6.1 FL (6.5-10.1); MONOCYTES % (AUTO) 7.5 % (1.0-10.0); NEUTROPHILS % (AUTO) 78.8 % (45.0-75.0); PLATELET COUNT 353 K/UL (150-450); RED CELL DISTRIBUTION WIDTH 11.1 % (11.6-14.8); WHITE BLOOD COUNT 15.1 K/UL (4.8-10.8)
[2016-07-20 16:49] LABS: ALANINE AMINOTRANSFERASE 74 U/L (3-41); ALBUMIN/GLOBULIN RATIO 1.4 (1.0-2.7); ANION GAP 25 (5-15); ASPARTATE AMINO TRANSFERASE 70 U/L (5-40); CALCIUM 9.7 mg/dL (8.6-10.2); CARBON DIOXIDE 19 mEQ/L (20-30); CHLORIDE 91 mEQ/L (98-107); CREATININE 0.8 mg/dL (0.7-1.2); GLOMERULAR FILTRATION RATE > 60 mL/min (>60); HEMOLYSIS 46; LIPASE 30 U/L (< 60); POTASSIUM 3.3 mEQ/L (3.4-4.9); SODIUM 135 mEQ/L (135-145); TOTAL PROTEIN 8.1 g/dL (6.6-8.7)
[2016-07-20 18:41] VITALS: BP 109/68
[2016-07-20] MEDS ORDERED: Piperacillin/Tazobactam 3.375 GM in NS 110 ML IVPB ONE (19:00)
[2016-07-20 19:11] LABS: ABG ALLEN TEST POSITIVE; ABG BASE EXCESS -4.2; ABG PCO2 31.9 mmHg (35.0-45.0)
[2016-07-20] MEDS ORDERED: Zosyn 3.375gm inj ONE (19:17)
[2016-07-20 23:23] VITALS: BP 105/72
[2016-07-21] VITALS (7 sets, daily range): BP systolic 122–130; BP diastolic 69–81
--- NOTE | 2016-07-21 09:59 | Diagnostic Imaging Report ---
Indication: Abdominal pain Technique: Continuous helical transaxial imaging of the abdomen and pelvis was obtained from the lung bases to the pubic symphysis during intravenous contrast administration. Coronal 2-D reformats were also obtained. Study obtained in a Siemens sensation [address] Total Dose length Product (DLP): [address] Dose Index Volume (CTDIvol): 15 mGy Comparison: 07/15/16 Findings: Examination demonstrates interval development of a dilatation of the appendix. The base of the appendix is 8-9 mm in diameter. There is an appendicolith measuring 1.5 CM of the base. Immediately distal to this, the appendix is fluid-filled and dilated measuring up to 1.8 cm. There is a second appendicolith towards the distal blind end of the appendix measuring 7 mm. There is no inflammation identified in the periappendiceal fat. The wall of the dilated appendix is not thickened and well defined. However, based on imaging size criteria, the findings are suspicious for acute appendicitis. A few small mesenteric nodes are present. Once again we note some distended fluid-filled loops of small bowel this appears to have improved. In addition there is no longer the liquefied stool noted in the colon with some formed stool noted currently. Small hiatal hernia is noted. The liver, gallbladder, pancreas and spleen appear normal. Adrenal glands are enlarged and heterogeneous and have been described in detail on the prior study. Kidneys are unremarkable. There is no ascites, free fluid or free air. Impression: Suspicion of acute appendicitis based on markedly dilated appendiceal lumen filled with fluid and presence of 2 appendicoliths. There is no periappendiceal inflammation demonstrated and no wall thickening. Certainly no evidence of abscess or rupture. Improving small bowel enteritis. Small hiatal hernia Abnormal adrenal glands Findings discussed with Dr. Timothy Quesada via telephone and reviewed with sales and leasing consultant staff. The CT scanner at [facility] is accredited by the [employer] and the scans are performed using protocols designed to limit radiation exposure to as low as reasonably achievable to attain images of sufficient resolution adequate for diagnostic evaluation.
--- NOTE | 2016-07-21 10:06 | General Progress Note ---
Assessment/Plan Problem List: (1) Abdominal pain ICD Codes: R10.9 - Unspecified abdominal pain SNOMED: 57591175 Assessment/Plan abd pain, elevated WBC, CT suggestive of possible appendicitis surg consult abx stool studies Subjective ROS Limited/Unobtainable: Yes Allergies: Coded Allergies: No Known Allergies (Unverified , 07/20/16) Subjective c/o abd pain Objective Last 24 Hour Vital Signs Date Time Temp Pulse Resp B/P Pulse Ox O2 Delivery O2 Flow Rate FiO2 07/21/16 08:14 98.4 87 16 123/79 98 Room Air 07/21/16 04:00 98.1 90 18 122/73 100 Room Air 07/21/16 00:00 97.2 84 18 130/81 100 Room Air 07/20/16 23:24 98.2 78 17 109/68 99 Room Air 07/20/16 23:23 98.1 76 16 105/72 99 Room Air 07/20/16 18:41 98.2 78 17 109/68 99 Room Air 07/20/16 14:30 98.1 20 106/66 99 Room Air 07/20/16 14:22 98.1 76 20 106/66 99 Room Air Intake and Output 07/20/16 07/21/16 19:00 07:00 Intake Total 1000 ml Balance 1000 ml Intake Oral 0 ml IV Total 1000 ml Laboratory Tests 07/20/16 16:16: White Blood Count 15.1H, Red Blood Count 4.70, Hemoglobin 14.5, Hematocrit 40.4L , Mean Corpuscular Volume 86, Mean Corpuscular Hemoglobin 30.8, Mean Corpuscular Hemoglobin Concent 35.9, Red Cell Distribution Width 11.1L, Platelet Count 353, Mean Platelet Volume 6.1L, Neutrophils (%) (Auto) 78.8H, Lymphocytes (%) (Auto) 12.9L, Monocytes (%) (Auto) 7.5, Eosinophils (%) (Auto) 0.0, Basophils (%) (Auto) 0.8, Sodium Level 135, Potassium Level 3.3L, Chloride Level 91L, Carbon Dioxide Level 19L, Anion Gap 25H, Blood Urea Nitrogen 9, Creatinine 0.8, Estimat Glomerular Filtration Rate > 60, Glucose Level 108H, Calcium Level 9.7, Total Bilirubin 0.7, Aspartate Amino Transf (AST/SGOT) 70H, Alanine Aminotransferase (ALT/SGPT) 74H, Alkaline Phosphatase 82, Total Protein 8.1, Albumin 4.8, Globulin 3.3, Albumin/Globulin Ratio 1.4, Lipase 30 07/20/16 19:00: Arterial Blood pH 7.403, Arterial Blood Partial Pressure CO2 31.9L, Arterial Blood Partial Pressure O2 76.4, Arterial Blood HCO3 19.5L, Arterial Blood Oxygen Saturation 94.0, Arterial Blood Base Excess -4.2, Donn Test Positive 07/21/16 09:30: White Blood Count [Pending], Red Blood Count [Pending], Hemoglobin [Pending], Hematocrit [Pending], Mean Corpuscular Volume [Pending], Mean Corpuscular Hemoglobin [Pending], Mean Corpuscular Hemoglobin Concent [Pending], Red Cell Distribution Width [Pending], Platelet Count [Pending], Mean Platelet Volume [ Pending], Neutrophils (%) (Auto) [Pending], Lymphocytes (%) (Auto) [Pending], Monocytes (%) (Auto) [Pending], Eosinophils (%) (Auto) [Pending], Basophils (%) (Auto) [Pending] Height (Feet): 5 Height (Inches): 2.00 Weight (Pounds): 130 General Appearance: alert EENT: normal ENT inspection Neck: supple Cardiovascular: normal rate Respiratory/Chest: lungs clear Abdomen: soft, decreased bowel sounds, tender Extremities: non-tender PASCUAL AVILEZ Jul 21, 2016 10:06
[2016-07-21 10:09] LABS: MEAN CORPUSCULAR HEMOGLOBIN 29.9 PG (27.0-31.0); MEAN CORPUSCULAR HGB CONC 34.4 G/DL (32.0-36.0); MEAN CORPUSCULAR VOLUME 87 FL (80-99); MEAN PLATELET VOLUME 6.5 FL (6.5-10.1); PLATELET COUNT 394 K/UL (150-450); RED BLOOD COUNT 4.92 M/UL (4.70-6.10); RED CELL DISTRIBUTION WIDTH 11.5 % (11.6-14.8); WHITE BLOOD COUNT 20.9 K/UL (4.8-10.8)
--- NOTE | 2016-07-21 10:34 | Consultation ---
History of Present Illness General Date patient seen: Jul 21, 2016 Chief Complaint: Vomiting Reason for Consultation: abdominal pain, nausea, emesis Present Illness HPI 25 year old male known to our surgery group. Presented approximately a week ago with abdominal pain, nausea, emesis, diarrhea. At that time CT scan demonstrated distal small bowel inflammation but no obstruction or signs of appendicitis. He was admitted, hydrated, and pain and symptoms resolved soon after. He was discharged home in stable condition. He now returns to ED with complaints of lower abdominal pain, nausea, emesis, but no longer has diarrhea. He stated he was doing well at home but after a few days began to develop the pain again followed by nausea and emesis. pain described as cramping lower abdominal pain that is worse in the midline and right lower quadrant. He has a leukocytosis and repeat CT scan demonstrated dilated appendix at this time but no significant acute denise-appendiceal inflammatory process. Surgery called for evaluation. Allergies: Coded Allergies: No Known Allergies (Unverified , 07/20/16) Medication History Scheduled Famotidine (Pepcid), 20 MG ORAL BID No Known Medications* (NKM - No Known Medications*), 0 ., (Reported) No Known Medications* (NKM - No Known Medications*), 0 ., (Reported) Scheduled PRN Ondansetron Odt* (Zofran Odt*), 4 MG ORAL BID PRN for Nausea & Vomiting Patient History History Provided By: Patient Healthcare decision maker Resuscitation status Full Code Advanced Directive on File Past Medical/Surgical History Past Medical/Surgical History: (1) Sepsis (2) KELSEY (acute kidney injury) (3) Gastroenteritis and colitis, viral (4) Vomiting (5) Abdominal pain Review of Systems Constitutional: Denies: chills, fever, malaise, no symptoms, other, see HPI, sweats, weakness Eye: Denies: acuity changes, blurred vision, discharge, double vision, eye pain , no symptoms, nose congestion, nose pain, other, see HPI, tearing ENT: Denies: ear discharge, ear pain, hearing loss, mouth pain, nasal discharge , no symptoms, nose congestion, nose pain, other, see HPI, throat pain, throat swelling Respiratory: Denies: HARPER, cough, no symptoms, orthopnea, other, see HPI, shortness of breath, sputum, stridor, wheezing Cardiovascular: Denies: PND, chest pain, edema, no symptoms, other, palpitations, see HPI, syncope Gastrointestinal: Reports: abdominal pain, nausea, see HPI, vomiting Genitourinary: Denies: discharge, dysuria, frequency, hematuria, incontinence, no symptoms, other, pain, retention, see HPI, urgency, vag bleed/dc Musculoskeletal: Denies: back pain, gout, joint pain, joint swelling, muscle pain, muscle stiffness, no symptoms, other, see HPI Skin: Denies: change in color, change in hair/nails, dryness, lesions, no symptoms, other, rash, see HPI Psychiatric: Denies: HI, SI, anxiety, depressed feelings, emotional problems, hallucinations, no symptoms, other, prior hx, see HPI Neurological: Denies: dizziness, focal weakness, headache, no symptoms, numbness, other, paresthesia, see HPI, seizure, syncope, tingling, tremors Endocrine: Denies: excessive sweating, flushing, increased thirst, increased urine, intolerance to temperature, no symptoms, other, see HPI, unexplained weight loss Hematologic/Lymphatic: Denies: anemia, blood clots, diathesis, easy bleeding, easy bruising, no symptoms, other, see HPI, swollen glands Physical Exam General Appearance: WD/WN, no apparent distress, alert Lines, tubes and drains: peripheral HEENT: normocephalic, atraumatic Neck: supple Respiratory/Chest: normal breath sounds, no respiratory distress, no accessory muscle use Cardiovascular/Chest: normal peripheral pulses, normal rate, regular rhythm Abdomen: normal bowel sounds, soft, no organomegaly, no mass, tender, other - soft, non distended, tender in midline lower and RLQ, no rebound or guarding. 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 normal, no motor/sensory deficits, alert, oriented x 3 Last 24 Hour Vital Signs Date Time Temp Pulse Resp B/P Pulse Ox O2 Delivery O2 Flow Rate FiO2 07/21/16 08:14 98.4 87 16 123/79 98 Room Air 07/21/16 04:00 98.1 90 18 122/73 100 Room Air 07/21/16 00:00 97.2 84 18 130/81 100 Room Air 07/20/16 23:24 98.2 78 17 109/68 99 Room Air 07/20/16 23:23 98.1 76 16 105/72 99 Room Air 07/20/16 18:41 98.2 78 17 109/68 99 Room Air 07/20/16 14:30 98.1 20 106/66 99 Room Air 07/20/16 14:22 98.1 76 20 106/66 99 Room Air Intake and Output 07/20/16 07/21/16 19:00 07:00 Intake Total 1000 ml Balance 1000 ml Intake Oral 0 ml IV Total 1000 ml Laboratory Tests Test 07/20/16 16:16 07/20/16 19:00 07/21/16 09:30 White Blood Count 15.1 K/UL (4.8-10.8) H 20.9 K/UL (4.8-10.8) H Red Blood Count 4.70 M/UL (4.70-6.10) 4.92 M/UL (4.70-6.10) Hemoglobin 14.5 G/DL (14.2-18.0) 14.7 G/DL (14.2-18.0) Hematocrit 40.4 % (42.0-52.0) L 42.8 % (42.0-52.0) Mean Corpuscular Volume 86 FL (80-99) 87 FL (80-99) Mean Corpuscular Hemoglobin 30.8 PG (27.0-31.0) 29.9 PG (27.0-31.0) Mean Corpuscular Hemoglobin Concent 35.9 G/DL (32.0-36.0) 34.4 G/DL (32.0-36.0) Red Cell Distribution Width 11.1 % (11.6-14.8) L 11.5 % (11.6-14.8) L Platelet Count 353 K/UL (150-450) 394 K/UL (150-450) Mean Platelet Volume 6.1 FL (6.5-10.1) L 6.5 FL (6.5-10.1) Neutrophils (%) (Auto) 78.8 % (45.0-75.0) H % (45.0-75.0) Lymphocytes (%) (Auto) 12.9 % (20.0-45.0) L % (20.0-45.0) Monocytes (%) (Auto) 7.5 % (1.0-10.0) % (1.0-10.0) Eosinophils (%) (Auto) 0.0 % (0.0-3.0) % (0.0-3.0) Basophils (%) (Auto) 0.8 % (0.0-2.0) % (0.0-2.0) Sodium Level 135 mEQ/L (135-145) Potassium Level 3.3 mEQ/L (3.4-4.9) L Chloride Level 91 mEQ/L (98-107) L Carbon Dioxide Level 19 mEQ/L (20-30) L Anion Gap 25 (5-15) H Blood Urea Nitrogen 9 mg/dL (7-23) Creatinine 0.8 mg/dL (0.7-1.2) Estimat Glomerular Filtration Rate > 60 mL/min (>60) Glucose Level 108 mg/dL (74-106) H Calcium Level 9.7 mg/dL (8.6-10.2) Total Bilirubin 0.7 mg/dL (0.0-1.2) Aspartate Amino Transf (AST/SGOT) 70 U/L (5-40) H Alanine Aminotransferase (ALT/SGPT) 74 U/L (3-41) H Alkaline Phosphatase 82 U/L (40-129) Total Protein 8.1 g/dL (6.6-8.7) Albumin 4.8 g/dL (3.5-5.2) Globulin 3.3 g/dL Albumin/Globulin Ratio 1.4 (1.0-2.7) Lipase 30 U/L (< 60) Arterial Blood pH 7.403 (7.350-7.450) Arterial Blood Partial Pressure CO2 31.9 mmHg (35.0-45.0) L Arterial Blood Partial Pressure O2 76.4 mmHg (75.0-100.0) Arterial Blood HCO3 19.5 mmol/L (22.0-26.0) L Arterial Blood Oxygen Saturation 94.0 % (92.0-98.0) Arterial Blood Base Excess -4.2 Donn Test Positive Neutrophils % (Manual) Pending Lymphocytes % (Manual) Pending Platelet Estimate Pending Platelet Morphology Pending Height (Feet): 5 Height (Inches): 2.00 Weight (Pounds): 130 Medications Current Medications Medications (Trade) Dose Ordered Sig/Shelia Route PRN Reason Start Time Stop Time Status Last Admin Dose Admin Acetaminophen 650 mg 650 mg Q4H PRN ORAL Mild Pain/Temp > 100.5 07/20/16 22:00 08/19/16 21:59 07/21/16 08:07 Ondansetron HCl (Zofran) 4 mg Q6H PRN IVP Nausea & Vomiting 07/21/16 03:30 08/20/16 03:29 07/21/16 03:44 Ranitidine HCl (Zantac) 150 mg DAILY ORAL 07/21/16 09:00 08/20/16 08:59 07/21/16 08:06 Sodium Chloride (Sodium Chloride 1000ml bag) 1,000 ml @ 75 mls/hr [id number] IV 07/20/16 22:00 08/19/16 21:59 07/21/16 06:15 Assessment/Plan Status: stable Assessment/Plan 25 M with abdominal pain, nausea, emesis, leukocytosis. CT scan with dilated appendix as compared to prior and appendicolith. Still has some distal small bowel inflammation. Exam as above. Appendicitis? vs inflammatory bowel/enteritis. no significant denise- appendicital process noted or significant thickening but appendix is dilated and fluid filled on CT. Recommend GI consult. appreciate input on possibility of inflammatory bowel condition vs infectious process NPO with IV fluids IV Abx Will discuss possible diagnostic laparoscopy with patient. Jamie Vail Jul 21, 2016 10:34
--- NOTE | 2016-07-21 10:52 | Diagnostic Imaging Report ---
Indication:Abdominal pain Technique: Grayscale and duplex Doppler imaging of the abdomen performed. Comparison: None Findings: Multiple stones are demonstrated within the gallbladder. Sonographic Hurley's is positive per technologist suggesting acute cholecystitis. There is no biliary ductal dilatation. CBD is 5 mm. The liver, demonstrated part of the pancreas, aorta and IVC, both kidneys, spleen appear unremarkable. Doppler evaluation of the main portal vein shows patency. There is no ascites. No hydronephrosis seen. Impression: Suspected cholecystitis with gallstones and positive sonographic Hurley's. Please correlate clinically.
[2016-07-21 11:00] LABS: BAND NEUTROPHILS % (MANUAL) 0 % (0-8); BASOPHILS % (MANUAL) 0 % (0-2); EOSINOPHILS % (MANUAL) 0 % (0-3); LYMPHOCYTES % (MANUAL) 7 % (20-45); NEUTROPHILS % (MANUAL) 87 % (45-75); PLATELET ESTIMATE ADEQUATE; PLATELET MORPHOLOGY NORMAL; TOTAL CELLS COUNTED 100
--- NOTE | 2016-07-21 12:00 | General Progress Note ---
Progress Note Progress Note Dr. Vail's note read. Pt has an atypical presentation for appendicitis, but his appendix is now dilated to 1.8 cm with no stranding of fat, no thickening. (5 mm last week) and there is some RLQ pain and tenderness, elevated WBC again. Also, new finding of small gallstones with slight GB wall thickening. ??? cholecystitis? Will obtain a HIDA scan, then do a diagnostic laparoscopy with possible appendectomy and possible cholecystectomy tomorrow by Dr. Vail. I saw the pt for full explanation in Korean and he understands all of the above and consents to procedures. NIRMALA JOSEPH Jul 21, 2016 11:59
--- NOTE | 2016-07-21 12:52 | Infectious Diseases Prog Note ---
Assessment/Plan Problems: (1) Appendicitis, acute Assessment & Plan: will start unasyn empirically, needs surgical resection, general surgery is following , will send blood culture to rule out sepsis (2) Cholecystitis, acute Assessment & Plan: will start unasyn empirically, await HIDA scan to confirm , surgery is following (3) Sepsis Assessment & Plan: due to the above, on unasyn, will send blood culture. (4) Abdominal pain Assessment & Plan: due to the above, continue pain management as per primary Subjective Allergies: Coded Allergies: No Known Allergies (Unverified , 07/20/16) Objective Vital Signs Last 24 Hour Vital Signs Date Time Temp Pulse Resp B/P Pulse Ox O2 Delivery O2 Flow Rate FiO2 07/21/16 11:55 98.2 88 16 125/71 100 Room Air 07/21/16 08:14 98.4 87 16 123/79 98 Room Air 07/21/16 04:00 98.1 90 18 122/73 100 Room Air 07/21/16 00:00 97.2 84 18 130/81 100 Room Air 07/20/16 23:24 98.2 78 17 109/68 99 Room Air 07/20/16 23:23 98.1 76 16 105/72 99 Room Air 07/20/16 18:41 98.2 78 17 109/68 99 Room Air 07/20/16 14:30 98.1 20 106/66 99 Room Air 07/20/16 14:22 98.1 76 20 106/66 99 Room Air Height (Feet): 5 Height (Inches): 2.00 Weight (Pounds): 130 Laboratory Tests Test 07/20/16 16:16 07/20/16 19:00 07/21/16 09:30 White Blood Count 15.1 K/UL (4.8-10.8) H 20.9 K/UL (4.8-10.8) H Red Blood Count 4.70 M/UL (4.70-6.10) 4.92 M/UL (4.70-6.10) Hemoglobin 14.5 G/DL (14.2-18.0) 14.7 G/DL (14.2-18.0) Hematocrit 40.4 % (42.0-52.0) L 42.8 % (42.0-52.0) Mean Corpuscular Volume 86 FL (80-99) 87 FL (80-99) Mean Corpuscular Hemoglobin 30.8 PG (27.0-31.0) 29.9 PG (27.0-31.0) Mean Corpuscular Hemoglobin Concent 35.9 G/DL (32.0-36.0) 34.4 G/DL (32.0-36.0) Red Cell Distribution Width 11.1 % (11.6-14.8) L 11.5 % (11.6-14.8) L Platelet Count 353 K/UL (150-450) 394 K/UL (150-450) Mean Platelet Volume 6.1 FL (6.5-10.1) L 6.5 FL (6.5-10.1) Neutrophils (%) (Auto) 78.8 % (45.0-75.0) H % (45.0-75.0) Lymphocytes (%) (Auto) 12.9 % (20.0-45.0) L % (20.0-45.0) Monocytes (%) (Auto) 7.5 % (1.0-10.0) % (1.0-10.0) Eosinophils (%) (Auto) 0.0 % (0.0-3.0) % (0.0-3.0) Basophils (%) (Auto) 0.8 % (0.0-2.0) % (0.0-2.0) Sodium Level 135 mEQ/L (135-145) Potassium Level 3.3 mEQ/L (3.4-4.9) L Chloride Level 91 mEQ/L (98-107) L Carbon Dioxide Level 19 mEQ/L (20-30) L Anion Gap 25 (5-15) H Blood Urea Nitrogen 9 mg/dL (7-23) Creatinine 0.8 mg/dL (0.7-1.2) Estimat Glomerular Filtration Rate > 60 mL/min (>60) Glucose Level 108 mg/dL (74-106) H Calcium Level 9.7 mg/dL (8.6-10.2) Total Bilirubin 0.7 mg/dL (0.0-1.2) Aspartate Amino Transf (AST/SGOT) 70 U/L (5-40) H Alanine Aminotransferase (ALT/SGPT) 74 U/L (3-41) H Alkaline Phosphatase 82 U/L (40-129) Total Protein 8.1 g/dL (6.6-8.7) Albumin 4.8 g/dL (3.5-5.2) Globulin 3.3 g/dL Albumin/Globulin Ratio 1.4 (1.0-2.7) Lipase 30 U/L (< 60) Arterial Blood pH 7.403 (7.350-7.450) Arterial Blood Partial Pressure CO2 31.9 mmHg (35.0-45.0) L Arterial Blood Partial Pressure O2 76.4 mmHg (75.0-100.0) Arterial Blood HCO3 19.5 mmol/L (22.0-26.0) L Arterial Blood Oxygen Saturation 94.0 % (92.0-98.0) Arterial Blood Base Excess -4.2 Donn Test Positive Differential Total Cells Counted 100 Neutrophils % (Manual) 87 % (45-75) H Lymphocytes % (Manual) 7 % (20-45) L Monocytes % (Manual) 6 % (1-10) Eosinophils % (Manual) 0 % (0-3) Basophils % (Manual) 0 % (0-2) Band Neutrophils 0 % (0-8) Platelet Estimate Adequate Platelet Morphology Normal Red Blood Cell Morphology Normal Current Medications Medications (Trade) Dose Ordered Sig/Shelia Route PRN Reason Start Time Stop Time Status Last Admin Dose Admin Acetaminophen 650 mg 650 mg Q4H PRN ORAL Mild Pain/Temp > 100.5 07/20/16 22:00 08/19/16 21:59 07/21/16 08:07 Morphine Sulfate (Morphine Sulfate) 2 mg ONCE ONCE IVP 07/21/16 13:00 07/21/16 13:01 UNV Ondansetron HCl (Zofran) 4 mg Q6H PRN IVP Nausea & Vomiting 07/21/16 03:30 08/20/16 03:29 07/21/16 03:44 Ranitidine HCl (Zantac) 150 mg DAILY ORAL 07/21/16 09:00 08/20/16 08:59 07/21/16 08:06 Sodium Chloride (Sodium Chloride 1000ml bag) 1,000 ml @ 75 mls/hr [id number] IV 07/20/16 22:00 08/19/16 21:59 07/21/16 06:15 Margy Childress M.D. Jul 21, 2016 12:52
[2016-07-21] MEDS ORDERED: Morphine Sulfate 2mg/ml Inj IVP PRN (13:00)
--- NOTE | 2016-07-21 15:52 | Diagnostic Imaging Report ---
Indication: Abdominal Pain Technique: 5.8 mCi of technetium 99 m-Choletec was injected intravenously. Planar imaging of the abdomen was then performed every 5 minutes up to 30 minutes and every 10 minutes up to one hour. Oblique views were also obtained. Findings: There is prompt uptake within the liver with good washout of radiotracer from the liver on subsequent imaging. There is excretion into the biliary ducts. Gallbladder activity is present in a timely fashion indicating patency of the cystic duct. Bowel activity is demonstrated in a timely fashion indicating patency of the common bile duct. Impression: Normal HIDA scan
--- NOTE | 2016-07-21 15:56 | Anethesia Preoperative Eval ---
Anesthesia Pre-op PMH/ROS General Date of Evaluation: Jul 21, 2016 Time of Evaluation: 15:52 Anesthesiologist: Chris ASA Score: ASA 2 Mallampati Score Class I : Soft palate, uvula, fauces, pillars visible Class II: Soft palate, uvula, fauces visible Class III: Soft palate, base of uvula visible Class IV: Only hard plate visible Mallampati Classification: Class II Surgeon: Libia Diagnosis: Abdominal pain Surgical Procedure: Diagnostic laparoscopy Anesthesia History: none Family History: no anesthesia problems Allergies: Coded Allergies: No Known Allergies (Unverified , 07/20/16) Medications: see eMAR Past Medical History Cardiovascular: Denies: CAD, HTN, DC, arrhythmia, other, valve dz Pulmonary: Denies: COPD, KELLY, asthma, other Gastrointestinal/Genitourinary: Reports: GERD, other - Recurrent abdominal pain N&V, Denies: CRI, ESRD Neurologic/Psychiatric: Denies: CVA, TIA, dementia, depression/anxiety, other Endocrine: Denies: DM, hypothyroidism, other, steroids HEENT: Denies: MORONGO (L), MORONGO (R), cataract (L), cataract (R), glaucoma, other Hematology/Immune: Denies: DVT, anemia, bleeding disorder, other Musculoskeletal/Integumentary: Denies: DDD, DJD, OA, RA, edema, other PMH Narrative: as above PSxH Narrative: See chart Anesthesia Pre-op Phys. Exam Physician Exam Last Vital Signs Date Time Temp Pulse Resp B/P Pulse Ox O2 Delivery O2 Flow Rate FiO2 07/21/16 11:55 98.2 88 16 125/71 100 Room Air Constitutional: NAD Neurologic: CN 2-12 intact Cardiovascular: RRR, no M/R/G Respiratory: CTA Gastrointestinal: other Airway Exam Mallampati Score: Class II MO: full Neck: flexible ROM: full Teeth: intact Dentures: no lower, no upper Anesthesia Pre-op A/P Labs Hematology Test 07/20/16 16:16 07/21/16 09:30 White Blood Count 15.1 K/UL (4.8-10.8) H 20.9 K/UL (4.8-10.8) H Red Blood Count 4.70 M/UL (4.70-6.10) 4.92 M/UL (4.70-6.10) Hemoglobin 14.5 G/DL (14.2-18.0) 14.7 G/DL (14.2-18.0) Hematocrit 40.4 % (42.0-52.0) L 42.8 % (42.0-52.0) Mean Corpuscular Volume 86 FL (80-99) 87 FL (80-99) Mean Corpuscular Hemoglobin 30.8 PG (27.0-31.0) 29.9 PG (27.0-31.0) Mean Corpuscular Hemoglobin Concent 35.9 G/DL (32.0-36.0) 34.4 G/DL (32.0-36.0) Red Cell Distribution Width 11.1 % (11.6-14.8) L 11.5 % (11.6-14.8) L Platelet Count 353 K/UL (150-450) 394 K/UL (150-450) Mean Platelet Volume 6.1 FL (6.5-10.1) L 6.5 FL (6.5-10.1) Neutrophils (%) (Auto) 78.8 % (45.0-75.0) H % (45.0-75.0) Lymphocytes (%) (Auto) 12.9 % (20.0-45.0) L % (20.0-45.0) Monocytes (%) (Auto) 7.5 % (1.0-10.0) % (1.0-10.0) Eosinophils (%) (Auto) 0.0 % (0.0-3.0) % (0.0-3.0) Basophils (%) (Auto) 0.8 % (0.0-2.0) % (0.0-2.0) Differential Total Cells Counted 100 Neutrophils % (Manual) 87 % (45-75) H Lymphocytes % (Manual) 7 % (20-45) L Monocytes % (Manual) 6 % (1-10) Eosinophils % (Manual) 0 % (0-3) Basophils % (Manual) 0 % (0-2) Band Neutrophils 0 % (0-8) Platelet Estimate Adequate Platelet Morphology Normal Red Blood Cell Morphology Normal Chemistry Test 07/20/16 16:16 Sodium Level 135 mEQ/L (135-145) Potassium Level 3.3 mEQ/L (3.4-4.9) L Chloride Level 91 mEQ/L (98-107) L Carbon Dioxide Level 19 mEQ/L (20-30) L Anion Gap 25 (5-15) H Blood Urea Nitrogen 9 mg/dL (7-23) Creatinine 0.8 mg/dL (0.7-1.2) Estimat Glomerular Filtration Rate > 60 mL/min (>60) Glucose Level 108 mg/dL (74-106) H Calcium Level 9.7 mg/dL (8.6-10.2) Total Bilirubin 0.7 mg/dL (0.0-1.2) Aspartate Amino Transf (AST/SGOT) 70 U/L (5-40) H Alanine Aminotransferase (ALT/SGPT) 74 U/L (3-41) H Alkaline Phosphatase 82 U/L (40-129) Total Protein 8.1 g/dL (6.6-8.7) Albumin 4.8 g/dL (3.5-5.2) Globulin 3.3 g/dL Albumin/Globulin Ratio 1.4 (1.0-2.7) Lipase 30 U/L (< 60) Studies Pre-op Studies: EKG - NSR Risk Assessment & Plan Assessment: ASA 2 Plan: GA with HANY VELASQUEZ M.D. Jul 21, 2016 15:56
[2016-07-21] MEDS: Ampicillin/Sulbactam Sod 3 GM in NS 110 ML IVPB SCH ×2 (16:33→18:00)
--- NOTE | 2016-07-21 17:18 | History and Physical Report ---
DATE OF ADMISSION: 07/20/2016 HISTORY OF PRESENT ILLNESS: The patient admitted for vomiting. CT scan shows possible appendicitis. Dr. Quesada has been consulted for surgery. The patient also has leukocytosis and complained of nausea and vomiting for couple of days. The patient also denies rectal bleeding. Denies vomiting blood. Denies fever or chills. acute onset. PAST MEDICAL HISTORY: None known other than GERD. PAST SURGICAL HISTORY: None known. MEDICATIONS: reviewed. ALLERGIES: No known allergies. SOCIAL HISTORY: The patient denies history of alcohol, tobacco, or illicit drug. REVIEW OF SYSTEMS: HEENT: Denies headache. Respiratory: Denies shortness of breath. Denies cough. Cardiovascular: Denies chest pain. Denies orthopnea. Gastrointestinal: Reports abdominal pain and vomiting for couple of days. Extremities: Denies pain. Central Nervous System: Denies change in vision or speech pattern. PHYSICAL EXAMINATION: GENERAL: The patient is not in any acute distress. VITAL SIGNS: Temperature is 98.2 degrees, pulse is 78, and blood pressure 109/68. HEENT: PERRLA. NECK: Supple. No lymphadenopathy. CHEST: Clear to auscultation. GASTROINTESTINAL: Tender however no rebound. Soft. Positive bowel sounds. EXTREMITIES: No edema. NEUROLOGIC: Reflexes are equal on both sides. Moves all four extremities. LABORATORY AND DIAGNOSTIC DATA: WBC of 15.1, hemoglobin 14.5, and platelets of 353,000. Sodium 135, potassium 3.3, BUN 9, creatinine 0.8 and glucose of 108. AST 70 and ALT 74. Lipase 30. ASSESSMENT AND PLAN: Vomiting, rule out appendicitis, which will be decided by the surgeon and Infectious Diseases Dr. Quesada, Dr. Valero, and Dr. Naranjo have been consulted for this symptoms that the patient has and with. The patient is not in any acute distress at this point. Plan per Dr. Quesada. Mo Gamez M.D. DR: Terence JOB#: [id number] CC:
[2016-07-21 17:22] LABS: PATH BLOOD SMEAR/OMC SENT TO PATHOLOGIST
--- NOTE | 2016-07-21 20:38 | Consultation ---
DATE OF CONSULTATION: INFECTIOUS DISEASE CONSULTATION CONSULTING PHYSICIAN: Margy Childress M.D. REQUESTING PHYSICIAN: Mo Gamez M.D. REASON FOR CONSULTATION: Acute appendicitis and cholecystitis. Recommendation for antibiotics treatment. HISTORY OF PRESENT ILLNESS: The patient is a 25-year-old male with no significant past medical history, who was recently admitted to the hospital a week ago with gastroenteritis, presented now with worsening abdominal pain, mainly localized in the right lower quadrant and the right upper quadrant. His pain was 10/10 associated with nausea and vomiting. Pain is mainly localized in the right lower quadrant. It gets worse with eating or movement. He vomited last night. Denied any chills, but he felt febrile. In the emergency room, his temperature was 98 degrees and saturating 99% on room air. The patient had abdominal CT scan, which showed acute appendicitis with enlarged appendix and evidence of stone in the appendix. He also has ultrasound done of the abdomen and pelvis that showed acute cholecystitis with positive Hurley sign. So, I was consulted by the primary provider for antibiotics recommendation and further management. As of note, the patient is Bulgarian speaker mainly, history is limited, mainly obtained from the medical records and some from the patient. PAST MEDICAL HISTORY: Significant for gastroenteritis. PAST SURGICAL HISTORY: Negative. MEDICATIONS: The patient received Zosyn in the emergency room. For the rest of his medications, please refer to MAR. ALLERGY: He has no known drug allergy. FAMILY HISTORY: Not contributory. REVIEW OF SYSTEMS: A 12-point of system reviewed were all negative apart from the one I mentioned above in my History and Physical. PHYSICAL EXAMINATION: VITAL SIGNS: Temperature 98.2 degrees, pulse 88, respirations 16, blood pressure 135/71, and pulse oximetry 100% on room air. GENERAL: A young male, lying in bed, and complaining of abdominal pain. Awake, alert, and not in distress. HEENT: Normocephalic and atraumatic. Pupils reactive to light. Dry oral mucosa. No exudate. NECK: Supple. No lymphadenopathy. CARDIOVASCULAR: Regular rate and rhythm. No murmur or gallop. LUNGS: Clear bilaterally. No wheezing or rhonchi. Diminished breathing sounds. ABDOMEN: Soft. Tender in the right lower quadrant and the right upper quadrant with rebound mainly in the right lower quadrant. Positive Hurley sign. No ascites. No stiffness. Hyperactive bowel sounds. EXTREMITIES: No edema or cyanosis. LABORATORY DATA: His white count 20.9, hemoglobin 14.7, and platelet count 394,000. BUN of 9 and creatinine of 0.8. AST of 70 and ALT of 74. IMAGING: CT scan of the abdomen and pelvis showed acute appendicitis based on dilated appendiceal lumen filled with fluid and presence of stool in the colon. There is no periappendiceal inflammation and no wall thickening. No evidence of abscess or rupture. Improving small bowel enteritis and small hiatal hernia. Abdominal ultrasound showed suspected cholecystitis with gallstone and positive sonographic Hurley's. ASSESSMENT AND PLAN: 1. Acute appendicitis. We will start the patient on Unasyn empirically. Needs surgical resection, General Surgery is following. We will send blood cultures to rule out sepsis. 2. Acute cholecystitis confirmed on abdominal ultrasound, pending HIDA scan for further confirmation. Surgery is following, may require cholecystectomy for source control. Continue Unasyn for now. Surgery is following. 3. Sepsis with leukocytosis due to the above. On Unasyn already. We will send blood culture. 4. Abdominal pain, nausea, and vomiting due to the above. Continue supportive care. Nausea medication as needed. Further management as per the primary team. Margy Childress M.D. DR: BLADIMIR JOB#: [id number] CC: LONNIE
[2016-07-21] MEDS: HYDROmorphone 1mg/ml Carpuject IVP PRN (21:54)
--- NOTE | 2016-07-21 21:56 | Emergency Room Report ---
History of Present Illness General Chief Complaint: Vomiting Source: Patient Present Illness HPI Patient was recently admitted to the hospital with what appears to be possible gastroenteritis Patient after discharge continued to feell uncomfortable and ill And presents for repeat evaluation Patient reports increased mid abdominal pain Vomiting diarrhea has improved however still present Unknown regarding fever however patient subjectively has chills Denies any rash Review of previous records reveals extensive workup with specialty consultation Allergies: Coded Allergies: No Known Allergies (Unverified , 07/20/16) Patient History Past Medical History: see triage record Pertinent Family History: none Reviewed Nursing Documentation: PMH: Agreed, PSxH: Agreed Nursing Documentation-PM Past Medical History: No Stated History Hx Cardiac Problems: No Hx Gastrointestinal Problems: Yes Hx Neurological Problems: No Review of Systems All Other Systems: negative except mentioned in HPI Physical Exam Vital Signs Date Time Temp Pulse Resp B/P Pulse Ox O2 Delivery O2 Flow Rate FiO2 07/20/16 14:22 98.1 76 20 106/66 99 Room Air Sp02 EP Interpretation: reviewed, normal General Appearance: mild distress - Patient appears ill, appears weak Head: normocephalic, atraumatic Eyes: bilateral eye EOMI, bilateral eye PERRL ENT: hearing grossly normal, normal pharynx, TMs + canals normal, uvula midline Neck: full range of motion, supple, no meningismus, no bony tend Respiratory: lungs clear, normal breath sounds, no rhonchi, no respiratory distress, no retraction, no accessory muscle use Cardiovascular #1: normal peripheral pulses, regular rate, rhythm, no edema, no gallop, no JVD, no murmur Gastrointestinal: normal bowel sounds, soft, no mass, no organomegaly, non- distended, no hernia, no pulsatile mass, no rebound, other - Somewhat of a difficult exam, patient points to mainly mid abdominal region, however on palpation has reproducible pain and bilateral lower abdomen Genitourinary: no CVA tenderness Musculoskeletal: normal inspection Neurologic: oriented x3, responsive, operating room manager III-XII nml as tested, motor strength/ tone normal, sensory intact Psychiatric: mood/affect normal Skin: normal color, no rash, warm/dry, palpation normal Lymphatic: normal inspection, no adenopathy Medical Decision Making Diagnostic Impression: Primary Impression: Appendicitis, acute Additional Impression: Abdominal pain ER Course Given the patient's previous history and exam It appears that the white blood cell count is increasing given the patient's medical evaluation I do realize the patient has had recent imaging however it was felt that the benefits outweighed the risk given the patient's appearance repeat CAT scan reveals Evidence of enlarging appendix with appendicolith with increased concern for appendicitis In discussion with general surgery there is concern also of gastrointestinal pathology such as Crohn's Patient initiated on broad-spectrum antibiotics, GI and general surgery consultation obtained And patient admitted for further care, Labs Test 07/20/16 16:16 07/20/16 19:00 07/21/16 09:30 White Blood Count 15.1 K/UL (4.8-10.8) 20.9 K/UL (4.8-10.8) Red Blood Count 4.70 M/UL (4.70-6.10) 4.92 M/UL (4.70-6.10) Hemoglobin 14.5 G/DL (14.2-18.0) 14.7 G/DL (14.2-18.0) Hematocrit 40.4 % (42.0-52.0) 42.8 % (42.0-52.0) Mean Corpuscular Volume 86 FL (80-99) 87 FL (80-99) Mean Corpuscular Hemoglobin 30.8 PG (27.0-31.0) 29.9 PG (27.0-31.0) Mean Corpuscular Hemoglobin Concent 35.9 G/DL (32.0-36.0) 34.4 G/DL (32.0-36.0) Red Cell Distribution Width 11.1 % (11.6-14.8) 11.5 % (11.6-14.8) Platelet Count 353 K/UL (150-450) 394 K/UL (150-450) Mean Platelet Volume 6.1 FL (6.5-10.1) 6.5 FL (6.5-10.1) Neutrophils (%) (Auto) 78.8 % (45.0-75.0) % (45.0-75.0) Lymphocytes (%) (Auto) 12.9 % (20.0-45.0) % (20.0-45.0) Monocytes (%) (Auto) 7.5 % (1.0-10.0) % (1.0-10.0) Eosinophils (%) (Auto) 0.0 % (0.0-3.0) % (0.0-3.0) Basophils (%) (Auto) 0.8 % (0.0-2.0) % (0.0-2.0) Sodium Level 135 mEQ/L (135-145) Potassium Level 3.3 mEQ/L (3.4-4.9) Chloride Level 91 mEQ/L (98-107) Carbon Dioxide Level 19 mEQ/L (20-30) Anion Gap 25 (5-15) Blood Urea Nitrogen 9 mg/dL (7-23) Creatinine 0.8 mg/dL (0.7-1.2) Estimat Glomerular Filtration Rate > 60 mL/min (>60) Glucose Level 108 mg/dL (74-106) Calcium Level 9.7 mg/dL (8.6-10.2) Total Bilirubin 0.7 mg/dL (0.0-1.2) Aspartate Amino Transf (AST/SGOT) 70 U/L (5-40) Alanine Aminotransferase (ALT/SGPT) 74 U/L (3-41) Alkaline Phosphatase 82 U/L (40-129) Total Protein 8.1 g/dL (6.6-8.7) Albumin 4.8 g/dL (3.5-5.2) Globulin 3.3 g/dL Albumin/Globulin Ratio 1.4 (1.0-2.7) Lipase 30 U/L (< 60) Arterial Blood pH 7.403 (7.350-7.450) Arterial Blood Partial Pressure CO2 31.9 mmHg (35.0-45.0) Arterial Blood Partial Pressure O2 76.4 mmHg (75.0-100.0) Arterial Blood HCO3 19.5 mmol/L (22.0-26.0) Arterial Blood Oxygen Saturation 94.0 % (92.0-98.0) Arterial Blood Base Excess -4.2 Donn Test Positive Differential Total Cells Counted 100 Neutrophils % (Manual) 87 % (45-75) Lymphocytes % (Manual) 7 % (20-45) Monocytes % (Manual) 6 % (1-10) Eosinophils % (Manual) 0 % (0-3) Basophils % (Manual) 0 % (0-2) Band Neutrophils 0 % (0-8) Platelet Estimate Adequate Platelet Morphology Normal Red Blood Cell Morphology Normal Erythrocyte Sedimentation Rate 22 MM/HR (0-15) C-Reactive Protein, Quantitative 4.5 mg/dL (< 0.5) CT/MRI/US Diagnostic Results CT/MRI/US Diagnostic Results : Impression CT abdomen pelvisImpression: Suspicion of acute appendicitis based on markedly dilated appendiceal lumen filled with fluid and presence of 2 appendicoliths. There is no periappendiceal inflammation demonstrated and no wall thickening. Certainly no evidence of abscess or rupture. Improving small bowel enteritis. Small hiatal hernia Abnormal adrenal glands Findings discussed with Dr. Timothy Quesada via telephone and reviewed with surgical instrument technician staff. Last Vital Signs Date Time Temp Pulse Resp B/P Pulse Ox O2 Delivery O2 Flow Rate FiO2 07/21/16 16:00 97.3 100 22 124/77 98 Room Air Status: improved Disposition: ADMITTED INPATIENT Condition: Serious Referrals: NOT CHOSEN IPA/,REFERRING (PCP) NEREYDA CHILDERS D.O. Jul 21, 2016 21:56
[2016-07-22] VITALS (15 sets, daily range): BP systolic 112–130; BP diastolic 62–88
[2016-07-22] MEDS: Ampicillin/Sulbactam Sod 3 GM in NS 110 ML IVPB SCH ×3 (00:54→11:29)
--- NOTE | 2016-07-22 01:28 | Consultation ---
DATE OF CONSULTATION: 07/21/2016 HEMATOLOGY/ONCOLOGY CONSULTATION: REQUESTING PHYSICIAN: Mo Gamez M.D. REASON FOR CONSULTATION: Evaluation of leukocytosis. IDENTIFYING DATA: Dear Dr. Mo Gamez, The patient is a pleasant 25-year-old with a past medical history significant for abdominal pain and diarrhea. CT scan showed distal small bowel inflammation. No obstructive findings other than appendicitis. The patient was admitted to the hospital for hydration and symptoms improved thereafter. Several days later, he returned to the ER with complaints of lower abdominal pain. CT scan did show at this time dilated appendix and now presents with acute pain and appendiceal inflammatory process. Surgery was consulted, recommend a GI consult, NPO with antibiotics, potential laparoscopy as per the surgical team on a p.r.n. basis. The patient was noted to have a leukocytosis upon admission, which worsened to 21,000 with neutrophils at 87%. Hematology service was consulted to rule out blood malignancy versus reactive process. PAST MEDICAL HISTORY: As noted above. PAST SURGICAL HISTORY: None noted. MEDICATIONS: Pepcid. ALLERGIES: No known drug allergies. CODE STATUS: Full Code. FAMILY HISTORY: Noncontributory. No GI issues. REVIEW OF SYSTEMS: Constitutional: No fever, chills, or night sweats. Skin: No rashes, lumps, or itching. HEENT: No headache or vision changes. Breasts: No lumps, pain, or discharge. Pulmonary: No cough, sputum, or shortness of breath. Cardiovascular: No chest pain, tightness, or palpitations. Gastrointestinal: The patient with abdominal pain, some nausea, and vomiting. Genitourinary: No dysuria, frequency, or urgency. Musculoskeletal: No joint swelling, muscle pain, or trauma. Neurological: No dizziness, fainting, or seizures. PHYSICAL EXAMINATION: GENERAL: No acute distress. VITAL SIGNS: Temperature 98.4 degree Fahrenheit, pulse 87, respiratory rate 12, blood pressure 122/79, and pulse oximetry 98% on room air. PULMONARY: Decreased breath sounds. CARDIOVASCULAR: Regular rate and rhythm. No S3 or S4. ABDOMEN: Soft, nontender, and nondistended. EXTREMITIES: Has 1+ edema. LABORATORY AND DIAGNOSTIC DATA: WBC 21,000, hemoglobin 15.7, hematocrit 43, and platelet count 393,000. Imaging reviewed. ASSESSMENT: 1. Leukocytosis, likely secondary to dilated appendix. He has been seen by surgical team for potential intervention. The patient with small bowel inflammation noted as well. No significant periappendiceal process. Monitor for leukocytosis. 2. Appendicitis versus inflammatory bowel enteritis. 3. Abdominal pain. 4. Transaminitis. 5. Sepsis. RECOMMENDATIONS: 1. Monitor the patient's count. 2. Peripheral smear ordered. 3. Monitor ESR and CRP for improvement especially given the patient with inflammatory process. 4. Antibiotics per ID service. 5. Appreciate GI, Surgical and ID recommendations. 6. Continue to closely monitor from Hematology perspective. Thank you, Dr. Mo Gamez, for this kind referral. Please do not hesitate to contact me if you have any further questions. Christopher Yanes M.D. DR: Jose Daniel JOB#: [id number] CC:
[2016-07-22] MEDS: HYDROmorphone 1mg/ml Carpuject IVP PRN ×2 (02:29→08:13)
--- NOTE | 2016-07-22 04:38 | Consultation ---
DATE OF CONSULTATION: CHIEF COMPLAINT: I was asked to see this patient by Dr. Mo Gamez for evaluation of vomiting and abdominal pain. HISTORY OF PRESENT ILLNESS: The patient is a pleasant 25-year-old man, who apparently was admitted and discharged from the hospital about a week ago when he presented with abdominal pain, nausea, vomiting, and diarrhea. At that time, CT scan showed some degree of inflammation but no definitive appendicitis. He has now returned with persistent symptoms of nausea, vomiting, and abdominal pain. He states his bowel movements are regular but the vomiting is bilious. Imaging studies now show likely appendicitis. Gallbladder appeared abnormal as well but subsequent HIDA scans were normal. PAST MEDICAL HISTORY: Otherwise negative. ALLERGIES: None. SOCIAL HISTORY: The patient does not drink or smoke. FAMILY HISTORY: Noncontributory. REVIEW OF SYSTEMS: Otherwise negative. PHYSICAL EXAMINATION: GENERAL: The patient is a pleasant young man with his family at bedside. HEENT: Normocephalic and atraumatic. Sclerae anicteric. Oropharynx clear. NECK: Supple. CHEST: Clear to auscultation. CARDIOVASCULAR: Regular rate. ABDOMEN: Soft with good bowel sounds. There is definite tenderness to palpation diffusely in the abdomen but most notably in the lower abdomen and perhaps more so on the left than the right. There is some mild voluntary guarding, but no rebound. EXTREMITIES: No edema. LABORATORY AND DIAGNOSTIC DATA: Laboratory data was noted. CT scan and HIDA scan were noted. ASSESSMENT: This patient presents with abdominal pain. The patient on the CAT scan suspicious for appendicitis. The patient had a normal HIDA scan; therefore cholecystitis is not likely. He is also not a reasonable candidate for this condition. However, the appendicitis has been more of a concern and I agree with exploratory laparotomy to evaluate the appendix. In the meantime, his small bowel can also be evaluated. RECOMMENDATIONS: 1. NPO. 2. IV fluids. 3. Surgical treatment and plan. 4. We will follow with you. Thank you for asking me to participate in the care of this patient. Kurt Rogers M.D. DR: YAEL JOB#: [id number] CC:
--- NOTE | 2016-07-22 11:32 | General Progress Note ---
Progress Note Progress Note Surgery: patient seen and examined at bedside this AM. doing well. States pain in lower abdomen about the same today. Afebrile, tachycardic, BP stable. Abdomen with tenderness in lower midline and right and left quadrants. no rebound. no guarding. I explained to the patient and family that no definitive diagnosis is noted but potentially can be atypical appendicitis. pain, leukocytosis, ct findings concerning and diagnostic laparoscopy is recommended. They express understanding and want to proceed with diagnostic laparoscopy, possible appendectomy. Jamie Vail Jul 22, 2016 11:32
--- NOTE | 2016-07-22 11:33 | Pre-Procedure Note/Attestation ---
Pre-Procedure Note/Attestation Complete Prior to Procedure Planned Procedure: not applicable Procedure Narrative: diagnostic laparoscopy, possible appendectomy Indications for Procedure Pre-Operative Diagnosis: abdominal pain, leukocytosis Attestation I attest that I discussed the nature of the procedure; its benefits; risks and complications; and alternatives (and the risks and benefits of such alternatives ), prior to the procedure, with the patient (or the patient's legal metals sales representative). I attest that, if there was a reasonable possibility of needing a blood transfusion, the patient (or the patient's legal metals sales representative) was given the [facility] standardized written summary, pursuant to the Samuel Rudyard Blood Safety Act ([place] Health and Safety Code # 1645, as amended). I attest that I re-evaluated the patient just prior to the surgery and that there has been no change in the patient's H&P, except as documented below: Jamie Vail Jul 22, 2016 11:33
[2016-07-22] MEDS ORDERED: Glycopyrrolate 0.2mg/ml 1ml Vial ONE (12:00)
[2016-07-22] MEDS ORDERED: Propofol 10mg/ml 20ml IV ONE (12:00)
[2016-07-22] MEDS ORDERED: LR 1000ml ONE (12:00)
[2016-07-22] MEDS ORDERED: Sterile Water Irrig 1000ml IRRIG ONE (12:00)
[2016-07-22] MEDS ORDERED: fentaNYL 100 mcg/2 mL IV ONE (12:00)
[2016-07-22] MEDS ORDERED: Neostigmine 1mg/ml 10ml Inj ONE (12:00)
[2016-07-22] MEDS ORDERED: NS Irrig 1000ml ONE (12:00)
[2016-07-22] MEDS ORDERED: Zemuron 50mg/5ml Inj IV ONE (12:00)
[2016-07-22] MEDS ORDERED: Midazolam 2mg/2ml Inj ONE (12:00)
[2016-07-22] MEDS ORDERED: Morphine Sulfate 10mg/ml Inj ONE (12:00)
[2016-07-22] MEDS ORDERED: Ketorolac 30mg Inj ONE (12:00)
[2016-07-22] MEDS ORDERED: Succinylcholine 20mg/ml 10ml vial ONE (12:00)
[2016-07-22 12:04] LABS: MEAN CORPUSCULAR HGB CONC 33.8 G/DL (32.0-36.0); MEAN CORPUSCULAR VOLUME 89 FL (80-99); MEAN PLATELET VOLUME 6.4 FL (6.5-10.1); PLATELET COUNT 426 K/UL (150-450); RED BLOOD COUNT 4.69 M/UL (4.70-6.10); RED CELL DISTRIBUTION WIDTH 11.7 % (11.6-14.8)
[2016-07-22 12:10] LABS: WHITE BLOOD COUNT 24.4 K/UL (4.8-10.8)
[2016-07-22 12:16] LABS: INR 1.2 (0.9-1.1); PROTHROMBIN TIME 11.8 SEC (9.30-11.50)
[2016-07-22 12:20] LABS: ANION GAP 21 (5-15); CALCIUM 9.6 mg/dL (8.6-10.2); CARBON DIOXIDE 21 mEQ/L (20-30); CHLORIDE 96 mEQ/L (98-107); CREATININE 0.8 mg/dL (0.7-1.2); GLOMERULAR FILTRATION RATE > 60 mL/min (>60); HEMOLYSIS 2; POTASSIUM 4.4 mEQ/L (3.4-4.9); SODIUM 138 mEQ/L (135-145)
[2016-07-22] MEDS ORDERED: Bupivacaine w/Epi 0.25% 30ml Vial INJ ONE (12:43)
[2016-07-22 12:46] LABS: BAND NEUTROPHILS % (MANUAL) 0 % (0-8); BASOPHILS % (MANUAL) 0 % (0-2); EOSINOPHILS % (MANUAL) 0 % (0-3); LYMPHOCYTES % (MANUAL) 6 % (20-45); NEUTROPHILS % (MANUAL) 88 % (45-75); PLATELET ESTIMATE ADEQUATE; PLATELET MORPHOLOGY NORMAL; TOTAL CELLS COUNTED 100
[2016-07-22] MEDS ORDERED: NS Irrig 1000ml IRRIG ONE (13:15)
[2016-07-22] MEDS ORDERED: LR 1000ml 1,000 ML IVLG SCH (13:52)
[2016-07-22] MEDS ORDERED: Hydromorphone 0.5mg/0.5ml inj IVP PRN (14:00)
[2016-07-22] MEDS ORDERED: Meperidine 25mg/ml Inj IV PRN (14:00)
[2016-07-22] MEDS ORDERED: DiphenhydrAMINE 50mg/ml Inj IVP PRN (14:00)
[2016-07-22] MEDS ORDERED: Metoclopramide 10mg/2ml Inj IVP PRN (14:00)
[2016-07-22] MEDS ORDERED: Midazolam 2mg/2ml Inj IVP PRN (14:00)
[2016-07-22] MEDS ORDERED: Ketorolac 30mg Inj IV PRN (14:00)
[2016-07-22] MEDS ORDERED: metroNIDAZOLE 500mg 100 ML ONE (14:09)
--- NOTE | 2016-07-22 14:43 | General Progress Note ---
Assessment/Plan Problem List: (1) Vomiting ICD Codes: R11.10 - Vomiting, unspecified SNOMED: 391613131 (2) Abdominal pain ICD Codes: R10.9 - Unspecified abdominal pain SNOMED: 80431629 Status: progressing Assessment/Plan afebrile abx per id decrrease in abdominal pain vitals stable Subjective ROS Limited/Unobtainable: Yes Constitutional: Reports: no symptoms Allergies: Coded Allergies: No Known Allergies (Unverified , 07/20/16) Objective Last 24 Hour Vital Signs Date Time Temp Pulse Resp B/P Pulse Ox O2 Delivery O2 Flow Rate FiO2 07/22/16 12:04 98.8 106 18 130/79 98 Room Air 07/22/16 08:21 98.2 114 20 130/80 97 Room Air 07/22/16 04:00 98.2 100 18 112/79 97 Room Air 07/22/16 00:00 98.4 103 20 129/79 97 Room Air 07/21/16 22:24 98.1 07/21/16 20:00 98.1 100 20 123/69 93 Room Air 07/21/16 19:54 98.1 07/21/16 16:00 97.3 100 22 124/77 98 Room Air Intake and Output 07/21/16 07/22/16 19:00 07:00 Intake Total 450 ml 670 ml Output Total 400 ml 500 ml Balance 50 ml 170 ml IV Total 450 ml 670 ml Output Urine Total 400 ml 500 ml # Voids 2 2 # Bowel Movements 1 Laboratory Tests 07/22/16 11:53: White Blood Count 24.4*H, Red Blood Count 4.69L, Hemoglobin 14.0L, Hematocrit 41.6L, Mean Corpuscular Volume 89, Mean Corpuscular Hemoglobin 30.0, Mean Corpuscular Hemoglobin Concent 33.8, Red Cell Distribution Width 11.7, Platelet Count 426, Mean Platelet Volume 6.4L, Neutrophils (%) (Auto) , Lymphocytes (%) ( Auto) , Monocytes (%) (Auto) , Eosinophils (%) (Auto) , Basophils (%) (Auto) , Differential Total Cells Counted 100, Neutrophils % (Manual) 88H, Lymphocytes % (Manual) 6L, Monocytes % (Manual) 6, Eosinophils % (Manual) 0, Basophils % ( Manual) 0, Band Neutrophils 0, Platelet Estimate Adequate, Platelet Morphology Normal, Red Blood Cell Morphology Normal, Prothrombin Time 11.8H, Prothromb Time International Ratio 1.2H, Activated Partial Thromboplast Time 31, Sodium Level 138, Potassium Level 4.4, Chloride Level 96L, Carbon Dioxide Level 21, Anion Gap 21H, Blood Urea Nitrogen 8, Creatinine 0.8, Estimat Glomerular Filtration Rate > 60, Glucose Level 117H, Calcium Level 9.6 Height (Feet): 5 Height (Inches): 2.00 Weight (Pounds): 130 Cardiovascular: normal rate Respiratory/Chest: lungs clear Abdomen: soft Mo Gamez MD Jul 22, 2016 14:43
--- NOTE | 2016-07-22 15:08 | Infectious Diseases Prog Note ---
Assessment/Plan Problems: (1) Appendicitis, acute Assessment & Plan: continue unasyn empirically, needs surgical resection, general surgery is following , blood culture to rule out sepsis is pending (2) Cholecystitis, acute Assessment & Plan: ruled out with normal HIDA scan , already on unasyn , surgery is following (3) Sepsis Assessment & Plan: due to the above, on unasyn, will send blood culture. (4) Abdominal pain Assessment & Plan: due to the above, continue pain management as per primary Subjective Gastrointestinal/Abdominal: Reports: nausea, other - lower abdominal pain Allergies: Coded Allergies: No Known Allergies (Unverified , 07/20/16) All Systems: reviewed and negative except above Subjective he was doing ok, comfortable, awake and not in distress Objective Vital Signs Last 24 Hour Vital Signs Date Time Temp Pulse Resp B/P Pulse Ox O2 Delivery O2 Flow Rate FiO2 07/22/16 12:04 98.8 106 18 130/79 98 Room Air 07/22/16 08:21 98.2 114 20 130/80 97 Room Air 07/22/16 04:00 98.2 100 18 112/79 97 Room Air 07/22/16 00:00 98.4 103 20 129/79 97 Room Air 07/21/16 22:24 98.1 07/21/16 20:00 98.1 100 20 123/69 93 Room Air 07/21/16 19:54 98.1 07/21/16 16:00 97.3 100 22 124/77 98 Room Air Height (Feet): 5 Height (Inches): 2.00 Weight (Pounds): 130 General Appearance: WD/WN, no acute distress HEENT: normocephalic, atraumatic, anicteric, mucous membranes moist Respiratory/Chest: chest wall non-tender, lungs clear, normal breath sounds, no respiratory distress, no accessory muscle use Cardiovascular: normal peripheral pulses, normal rate, regular rhythm, no gallop/murmur, no JVD Abdomen: normal bowel sounds, no organomegaly, non distended, no mass, no scars , tender, rebound tenderness Extremities: no cyanosis, no clubbing Skin: no rash, no lesions Laboratory Tests Test 07/22/16 11:53 White Blood Count 24.4 K/UL (4.8-10.8) *H Red Blood Count 4.69 M/UL (4.70-6.10) L Hemoglobin 14.0 G/DL (14.2-18.0) L Hematocrit 41.6 % (42.0-52.0) L Mean Corpuscular Volume 89 FL (80-99) Mean Corpuscular Hemoglobin 30.0 PG (27.0-31.0) Mean Corpuscular Hemoglobin Concent 33.8 G/DL (32.0-36.0) Red Cell Distribution Width 11.7 % (11.6-14.8) Platelet Count 426 K/UL (150-450) Mean Platelet Volume 6.4 FL (6.5-10.1) L Neutrophils (%) (Auto) % (45.0-75.0) Lymphocytes (%) (Auto) % (20.0-45.0) Monocytes (%) (Auto) % (1.0-10.0) Eosinophils (%) (Auto) % (0.0-3.0) Basophils (%) (Auto) % (0.0-2.0) Differential Total Cells Counted 100 Neutrophils % (Manual) 88 % (45-75) H Lymphocytes % (Manual) 6 % (20-45) L Monocytes % (Manual) 6 % (1-10) Eosinophils % (Manual) 0 % (0-3) Basophils % (Manual) 0 % (0-2) Band Neutrophils 0 % (0-8) Platelet Estimate Adequate Platelet Morphology Normal Red Blood Cell Morphology Normal Prothrombin Time 11.8 SEC (9.30-11.50) H Prothromb Time International Ratio 1.2 (0.9-1.1) H Activated Partial Thromboplast Time 31 SEC (23-33) Sodium Level 138 mEQ/L (135-145) Potassium Level 4.4 mEQ/L (3.4-4.9) Chloride Level 96 mEQ/L (98-107) L Carbon Dioxide Level 21 mEQ/L (20-30) Anion Gap 21 (5-15) H Blood Urea Nitrogen 8 mg/dL (7-23) Creatinine 0.8 mg/dL (0.7-1.2) Estimat Glomerular Filtration Rate > 60 mL/min (>60) Glucose Level 117 mg/dL (74-106) H Calcium Level 9.6 mg/dL (8.6-10.2) Current Medications Medications (Trade) Dose Ordered Sig/Shelia Route PRN Reason Start Time Stop Time Status Last Admin Dose Admin Acetaminophen 650 mg 650 mg Q4H PRN ORAL Mild Pain/Temp > 100.5 07/20/16 22:00 08/19/16 21:59 07/21/16 18:55 Ampicillin Sodium/ Sulbactam Sodium/ Sodium Chloride (Unasyn/Sodium Chloride) 110 ml @ 220 mls/hr Q6HR IVPB 07/21/16 14:30 07/28/16 14:29 07/22/16 11:29 Diphenhydramine HCl 25 mg 25 mg Q15M PRN IVP Itching 07/22/16 14:00 07/22/16 20:00 Hydromorphone HCl (Dilaudid) 0.5 mg Q15M PRN IVP Severe Pain (Pain Scale 7-10) 07/22/16 14:00 07/22/16 20:00 Hydromorphone HCl (Dilaudid) 1 mg Q4H PRN IVP For Pain 07/21/16 20:45 07/28/16 20:44 07/22/16 08:13 Ketorolac Tromethamine (Toradol 30mg) 30 mg Q1H PRN IV Severe Breakthru Pain (>7) 07/22/16 14:00 07/22/16 20:00 Lactated Ringer's (Lactated Ringer's 1000ml) 1,000 ml @ 10 mls/hr Q24H IVLG 07/22/16 13:52 07/22/16 20:00 Meperidine HCl (Demerol) 25 mg Q15M PRN IV Shivering 07/22/16 14:00 07/22/16 20:00 Metoclopramide HCl (Reglan) 10 mg Q1H PRN IVP Nausea & Vomiting 07/22/16 14:00 07/22/16 20:00 Midazolam HCl (Versed 2mg/2ml vial) 1 mg Q15M PRN IVP For Anxiety 07/22/16 14:00 07/22/16 20:00 Ondansetron HCl (Zofran) 4 mg Q4H PRN IVP Nausea & Vomiting 07/21/16 21:00 08/20/16 20:59 07/21/16 21:54 Ranitidine HCl 150 mg 150 mg DAILY ORAL 07/21/16 09:00 08/20/16 08:59 07/22/16 08:09 Sodium Chloride (Sodium Chloride 1000ml bag) 1,000 ml @ 75 mls/hr [id number] IV 07/20/16 22:00 08/19/16 21:59 07/21/16 21:54 Margy Childress M.D. Jul 22, 2016 15:08
--- NOTE | 2016-07-22 15:18 | Brief Operative Note ---
Immediate Post Operative Note Operative Note Pre-op Diagnosis: abdominal pain, leukocytosis Procedure: diagnostic laparoscopy, laparoscopic appendectomy Post-op Diagnosis: perforated appendicitis Surgeon: jane Anesthesiologist: ervin Anesthesia: general Specimen: yes - appendix Complications: none Condition: stable Fluids: see records Estimated Blood Loss: minimal Drains: LUCITA Implant(s) used?: No Jamie Vail Jul 22, 2016 15:18
--- NOTE | 2016-07-22 15:21 | General Progress Note ---
Progress Note Progress Note Surgery: Post op Diagnosis - PERFORATED APPENDICITIS Procedure: DIAGNOSTIC LAPAROSCOPY FOLLOWED WITH LAPAROSCOPIC APPENDECTOMY Patient to stay NPO until flatus or BM. Patient to stay on IV Abx until leukocytosis resolved and no fevers for > 24hrs Drain to stay in place until Surgeon removes Patient had perforation of appendix at base where fecalith was located. close proximity to ileo-cecal valve. significant abscess and inflammation surrounding area. patient at risk for becoming septic given these findings. orders as above. will continue to monitor. Jamie Vail Jul 22, 2016 15:21
--- NOTE | 2016-07-22 15:29 | Immediate Post-Op Evaluation ---
Immediate Post-Op Evalulation Immediate Post-Op Evalulation Procedure: Laparoscopic appendectomy Date of Evaluation: Jul 22, 2016 Time of Evaluation: 15:27 IV Fluids: 1300 Blood Products: none Estimated Blood Loss: 50 Urinary Output: none Blood Pressure Systolic: 122 Blood Pressure Diastolic: 64 Pulse Rate: 112 Respiratory Rate: 24 O2 Sat by Pulse Oximetry: 99 Temperature (Fahrenheit): 99.6 Pain Score (1-10): 3 Nausea: No Vomiting: No Complications none Patient Status: awake, patent, extubated, none Hydration Status: adequate Drug: Flagil 500 mg. HANY MERCER M.D. Jul 22, 2016 15:29
--- NOTE | 2016-07-22 15:33 | 48 Hour Post Anesthesia Eval ---
Post Anesthesia Evaluation Procedure: Laparoscopic appendectomy Date of Evaluation: Jul 22, 2016 Time of Evaluation: 15:32 Blood Pressure Systolic: 116 0: 78 Pulse Rate: 118 Respiratory Rate: 24 Temperature (Fahrenheit): 97.6 O2 Sat by Pulse Oximetry: 98 Airway: patent Nausea: No Vomiting: No Pain Intensity: 3 Hydration Status: adequate Cardiopulmonary Status: stable Mental Status/LOC: patient returned to baseline Follow-up Care/Observations: n/a Post-Anesthesia Complications: none Follow-up care needed: N/A HANY MERCER M.D. Jul 22, 2016 15:33
[2016-07-22] MEDS: Pantoprazole Inj IVP SCH (16:30)
[2016-07-22] MEDS: Piperacillin/Tazobactam 3.375 GM in D5W 110 ML IVPB SCH ×2 (17:30→23:32)
[2016-07-22] MEDS: D5 1/2NS w/KCl 20mEq 1,000 ML IV SCH (17:30)
[2016-07-22] MEDS ORDERED: metroNIDAZOLE 500mg 100 ML IVPB SCH (18:00)
--- NOTE | 2016-07-22 20:15 | General Progress Note ---
Assessment/Plan Assessment/Plan ASSESSMENT: 1. Leukocytosis, likely secondary to dilated appendix with perforated appendix and abscess likely explaining findings. ALso the patient with small bowel inflammation noted as well. No significant. Monitor for leukocytosis. 2. Appendicitis versus inflammatory bowel enteritis. 3. Abdominal pain. 4. Transaminitis. 5. Sepsis. RECOMMENDATIONS: 1. Monitor CBC 2. Peripheral smear reviewed 3. Monitor ESR and CRP 4. Antibiotics per ID service. 5. Appreciate GI, Surgical and ID recommendations. 6. Continue to closely monitor from Hematology perspective. Thank you, Christopher Yanes MD Subjective Constitutional: Reports: no symptoms HEENT: Reports: no symptoms Cardiovascular: Reports: no symptoms Respiratory: Reports: no symptoms Gastrointestinal/Abdominal: Reports: poor appetite Genitourinary: Reports: no symptoms Neurologic/Psychiatric: Reports: no symptoms Endocrine: Reports: no symptoms Hematologic/Lymphatic: Reports: anemia Allergies: Coded Allergies: No Known Allergies (Unverified , 07/20/16) Subjective abd pain is better, without complaints Objective Last 24 Hour Vital Signs Date Time Temp Pulse Resp B/P Pulse Ox O2 Delivery O2 Flow Rate FiO2 07/22/16 16:30 99.0 07/22/16 16:23 99.0 07/22/16 16:20 99.0 109 11 123/84 99 Room Air 07/22/16 16:06 107 20 126/88 99 Room Air 07/22/16 15:53 116 20 120/86 99 Room Air 07/22/16 15:45 118 20 120/76 99 Room Air 07/22/16 15:33 118 24 98 07/22/16 15:30 108 20 120/81 99 Room Air 07/22/16 15:29 112 24 99 07/22/16 15:25 105 20 122/78 100 Simple Mask 8.0 07/22/16 15:21 99.4 126 20 125/72 100 Simple Mask 8.0 07/22/16 12:04 98.8 106 18 130/79 98 Room Air 07/22/16 08:21 98.2 114 20 130/80 97 Room Air 07/22/16 04:00 98.2 100 18 112/79 97 Room Air 07/22/16 00:00 98.4 103 20 129/79 97 Room Air 07/21/16 22:24 98.1 Intake and Output 07/21/16 07/22/16 19:00 07:00 Intake Total 450 ml 670 ml Output Total 400 ml 500 ml Balance 50 ml 170 ml IV Total 450 ml 670 ml Output Urine Total 400 ml 500 ml # Voids 2 2 # Bowel Movements 1 Laboratory Tests 07/22/16 11:53: White Blood Count 24.4*H, Red Blood Count 4.69L, Hemoglobin 14.0L, Hematocrit 41.6L, Mean Corpuscular Volume 89, Mean Corpuscular Hemoglobin 30.0, Mean Corpuscular Hemoglobin Concent 33.8, Red Cell Distribution Width 11.7, Platelet Count 426, Mean Platelet Volume 6.4L, Neutrophils (%) (Auto) , Lymphocytes (%) ( Auto) , Monocytes (%) (Auto) , Eosinophils (%) (Auto) , Basophils (%) (Auto) , Differential Total Cells Counted 100, Neutrophils % (Manual) 88H, Lymphocytes % (Manual) 6L, Monocytes % (Manual) 6, Eosinophils % (Manual) 0, Basophils % ( Manual) 0, Band Neutrophils 0, Platelet Estimate Adequate, Platelet Morphology Normal, Red Blood Cell Morphology Normal, Prothrombin Time 11.8H, Prothromb Time International Ratio 1.2H, Activated Partial Thromboplast Time 31, Sodium Level 138, Potassium Level 4.4, Chloride Level 96L, Carbon Dioxide Level 21, Anion Gap 21H, Blood Urea Nitrogen 8, Creatinine 0.8, Estimat Glomerular Filtration Rate > 60, Glucose Level 117H, Calcium Level 9.6 Height (Feet): 5 Height (Inches): 2.00 Weight (Pounds): 130 General Appearance: no apparent distress EENT: TMs normal Neck: supple Cardiovascular: normal rate Respiratory/Chest: lungs clear Abdomen: non tender Extremities: non-tender Edema: 1+ Leg (L), 1+ Leg (R) Edema: mild edema Neurologic: alert Skin: normal pigmentation Christopher Yanes Jul 22, 2016 20:15
--- NOTE | 2016-07-22 20:21 | General Progress Note ---
Assessment/Plan Assessment/Plan Assessment - perforated appy Recommendations - post op care - diet per surgery - abx Subjective Allergies: Coded Allergies: No Known Allergies (Unverified , 07/20/16) Subjective seen early am c/o lower abd pain op notes reviewed Objective Last 24 Hour Vital Signs Date Time Temp Pulse Resp B/P Pulse Ox O2 Delivery O2 Flow Rate FiO2 07/22/16 16:30 99.0 07/22/16 16:23 99.0 07/22/16 16:20 99.0 109 11 123/84 99 Room Air 07/22/16 16:06 107 20 126/88 99 Room Air 07/22/16 15:53 116 20 120/86 99 Room Air 07/22/16 15:45 118 20 120/76 99 Room Air 07/22/16 15:33 118 24 98 07/22/16 15:30 108 20 120/81 99 Room Air 07/22/16 15:29 112 24 99 07/22/16 15:25 105 20 122/78 100 Simple Mask 8.0 07/22/16 15:21 99.4 126 20 125/72 100 Simple Mask 8.0 07/22/16 12:04 98.8 106 18 130/79 98 Room Air 07/22/16 08:21 98.2 114 20 130/80 97 Room Air 07/22/16 04:00 98.2 100 18 112/79 97 Room Air 07/22/16 00:00 98.4 103 20 129/79 97 Room Air 07/21/16 22:24 98.1 Intake and Output 07/21/16 07/22/16 19:00 07:00 Intake Total 450 ml 670 ml Output Total 400 ml 500 ml Balance 50 ml 170 ml IV Total 450 ml 670 ml Output Urine Total 400 ml 500 ml # Voids 2 2 # Bowel Movements 1 Laboratory Tests 07/22/16 11:53: White Blood Count 24.4*H, Red Blood Count 4.69L, Hemoglobin 14.0L, Hematocrit 41.6L, Mean Corpuscular Volume 89, Mean Corpuscular Hemoglobin 30.0, Mean Corpuscular Hemoglobin Concent 33.8, Red Cell Distribution Width 11.7, Platelet Count 426, Mean Platelet Volume 6.4L, Neutrophils (%) (Auto) , Lymphocytes (%) ( Auto) , Monocytes (%) (Auto) , Eosinophils (%) (Auto) , Basophils (%) (Auto) , Differential Total Cells Counted 100, Neutrophils % (Manual) 88H, Lymphocytes % (Manual) 6L, Monocytes % (Manual) 6, Eosinophils % (Manual) 0, Basophils % ( Manual) 0, Band Neutrophils 0, Platelet Estimate Adequate, Platelet Morphology Normal, Red Blood Cell Morphology Normal, Prothrombin Time 11.8H, Prothromb Time International Ratio 1.2H, Activated Partial Thromboplast Time 31, Sodium Level 138, Potassium Level 4.4, Chloride Level 96L, Carbon Dioxide Level 21, Anion Gap 21H, Blood Urea Nitrogen 8, Creatinine 0.8, Estimat Glomerular Filtration Rate > 60, Glucose Level 117H, Calcium Level 9.6 Height (Feet): 5 Height (Inches): 2.00 Weight (Pounds): 130 Objective WDWN NCAT supple CTA RRR Soft (+) lower abd TTP no edema non focal KARLO BOUCHER Jul 22, 2016 20:21
[2016-07-22] MEDS: metroNIDAZOLE 500mg 100 ML IVPB SCH (20:30)
[2016-07-23] VITALS: BP 102/61
[2016-07-23] MEDS: D5 1/2NS w/KCl 20mEq 1,000 ML IV SCH ×3 (01:13→17:00)
[2016-07-23] MEDS: metroNIDAZOLE 500mg 100 ML IVPB SCH ×4 (02:00→19:34)
[2016-07-23] MEDS: HYDROmorphone 1mg/ml Carpuject IVP PRN ×5 (03:20→21:46)
[2016-07-23 04:00] VITALS: BP 107/69
[2016-07-23] MEDS: Piperacillin/Tazobactam 3.375 GM in D5W 110 ML IVPB SCH ×3 (05:36→21:46)
[2016-07-23 07:53] LABS: BASOPHILS % (AUTO) 0.6 % (0.0-2.0); EOSINOPHILS % (AUTO) 0.2 % (0.0-3.0); LYMPHOCYTES % (AUTO) 9.3 % (20.0-45.0); MEAN CORPUSCULAR VOLUME 88 FL (80-99); MEAN PLATELET VOLUME 6.2 FL (6.5-10.1); MONOCYTES % (AUTO) 7.1 % (1.0-10.0); NEUTROPHILS % (AUTO) 82.8 % (45.0-75.0); PLATELET COUNT 351 K/UL (150-450); RED BLOOD COUNT 3.69 M/UL (4.70-6.10); RED CELL DISTRIBUTION WIDTH 11.7 % (11.6-14.8); WHITE BLOOD COUNT 12.9 K/UL (4.8-10.8)
[2016-07-23] MEDS: Pantoprazole Inj IVP SCH (08:12)
[2016-07-23 08:21] LABS: ANION GAP 14 (5-15); CALCIUM 8.7 mg/dL (8.6-10.2); CARBON DIOXIDE 24 mEQ/L (20-30); CHLORIDE 97 mEQ/L (98-107); CREATININE 0.7 mg/dL (0.7-1.2); GLOMERULAR FILTRATION RATE > 60 mL/min (>60); HEMOLYSIS 5; MAGNESIUM 1.8 mg/dL (1.7-2.5); PHOSPHORUS 1.5 mg/dL (2.5-4.8); POTASSIUM 4.2 mEQ/L (3.4-4.9); SODIUM 135 mEQ/L (135-145)
[2016-07-23 08:39] VITALS: BP 112/67
[2016-07-23 11:56] VITALS: BP 117/79
--- NOTE | 2016-07-23 11:57 | General Progress Note ---
Assessment/Plan Problem List: (1) Vomiting ICD Codes: R11.10 - Vomiting, unspecified SNOMED: 344435208 (2) Abdominal pain ICD Codes: R10.9 - Unspecified abdominal pain SNOMED: 81021737 Status: progressing Assessment/Plan afebrile abx per id cholycystis? afebrile no vomiting improving abx per id Subjective Gastrointestinal/Abdominal: Reports: abdominal pain Allergies: Coded Allergies: No Known Allergies (Unverified , 07/20/16) Objective Last 24 Hour Vital Signs Date Time Temp Pulse Resp B/P Pulse Ox O2 Delivery O2 Flow Rate FiO2 07/23/16 08:42 98.2 07/23/16 08:39 98.2 88 16 112/67 100 Nasal Cannula 07/23/16 04:00 97.9 95 18 107/69 98 Room Air 07/23/16 00:00 98.1 92 18 102/61 98 Nasal Cannula 2.0 07/22/16 20:00 98.1 102 18 118/62 100 Nasal Cannula 2.0 07/22/16 17:45 115 18 119/75 99 Nasal Cannula 3.0 07/22/16 17:45 98.2 120 20 123/78 99 Nasal Cannula 3.0 07/22/16 17:15 109 18 121/80 99 Nasal Cannula 3.0 07/22/16 16:45 98.2 109 18 121/80 99 Nasal Cannula 3.0 07/22/16 16:30 99.0 07/22/16 16:23 99.0 07/22/16 16:20 99.0 109 11 123/84 99 Room Air 07/22/16 16:06 107 20 126/88 99 Room Air 07/22/16 15:53 116 20 120/86 99 Room Air 07/22/16 15:45 118 20 120/76 99 Room Air 07/22/16 15:33 118 24 98 07/22/16 15:30 108 20 120/81 99 Room Air 07/22/16 15:29 112 24 99 07/22/16 15:25 105 20 122/78 100 Simple Mask 8.0 07/22/16 15:21 99.4 126 20 125/72 100 Simple Mask 8.0 07/22/16 12:04 98.8 106 18 130/79 98 Room Air Intake and Output 07/22/16 07/23/16 19:00 07:00 Intake Total 2350.0 ml 1642.5 ml Output Total 575 ml 515 ml Balance 1775.0 ml 1127.5 ml Intake Oral 0 ml IV Total 2350.0 ml 1642.5 ml Output Urine Total 500 ml 400 ml Drainage Total 25 ml 115 ml Estimated Blood Loss 50 ml # Voids 2 Laboratory Tests 07/23/16 07:30: White Blood Count 12.9H, Red Blood Count 3.69L, Hemoglobin 11.1L, Hematocrit 32.6L, Mean Corpuscular Volume 88, Mean Corpuscular Hemoglobin 30.0, Mean Corpuscular Hemoglobin Concent 34.0, Red Cell Distribution Width 11.7, Platelet Count 351, Mean Platelet Volume 6.2L, Neutrophils (%) (Auto) 82.8H, Lymphocytes (%) (Auto) 9.3L, Monocytes (%) (Auto) 7.1, Eosinophils (%) (Auto) 0.2, Basophils (%) (Auto) 0.6, Sodium Level 135, Potassium Level 4.2, Chloride Level 97L, Carbon Dioxide Level 24, Anion Gap 14, Blood Urea Nitrogen 6L, Creatinine 0.7, Estimat Glomerular Filtration Rate > 60, Glucose Level 148H, Calcium Level 8.7, Phosphorus Level 1.5L, Magnesium Level 1.8 Height (Feet): 5 Height (Inches): 2.00 Weight (Pounds): 130 Cardiovascular: normal rate Respiratory/Chest: lungs clear Abdomen: tender Mo Gamez MD Jul 23, 2016 11:57
--- NOTE | 2016-07-23 13:03 | General Progress Note ---
Progress Note Progress Note Surgery: patient seen and examined at bedside. No acute events. States he is doing better today with less pain. No n/v/f/c. much more comfortable. Leukocytosis resolving. Afebrile, HD stable, labs improving. Exam with some right and midline lower abdominal tenderness and incisional tenderness. no rebound or guarding. incisions c/d/i. drain with serous output. s/p diagnostic laparoscopy with lap appy for perforated appendicitis. improving. NPO with IV fluids. - okay for some ice chips IV Abx Drain care and management Ambulate and OOB Incentive spirometry Rx as written. Jamie Vail Jul 23, 2016 13:03
--- NOTE | 2016-07-23 14:41 | Infectious Diseases Prog Note ---
Assessment/Plan Problems: (1) Appendicitis, acute Assessment & Plan: started on zosyn and flagyl by the surgeon, had laparoscopic surgical resection of his appendix , general surgery is following , blood culture to rule out sepsis is pending (2) Cholecystitis, acute Assessment & Plan: ruled out with normal HIDA scan , already on zosyn and flagyl , surgery is following (3) Sepsis Assessment & Plan: due to the above, on zosyn , will send blood culture. (4) Abdominal pain Assessment & Plan: due to the above, continue pain management as per primary Subjective Gastrointestinal/Abdominal: Reports: bloating, nausea, other - pain Allergies: Coded Allergies: No Known Allergies (Unverified , 07/20/16) Subjective he was comfortable in bed, awake and not in distress, has surgical drainage in the LLQ Objective Vital Signs Last 24 Hour Vital Signs Date Time Temp Pulse Resp B/P Pulse Ox O2 Delivery O2 Flow Rate FiO2 07/23/16 13:39 98.2 07/23/16 11:56 98.2 91 16 117/79 98 Room Air 07/23/16 08:39 98.2 88 16 112/67 100 Nasal Cannula 07/23/16 04:00 97.9 95 18 107/69 98 Room Air 07/23/16 00:00 98.1 92 18 102/61 98 Nasal Cannula 2.0 07/22/16 20:00 98.1 102 18 118/62 100 Nasal Cannula 2.0 07/22/16 17:45 115 18 119/75 99 Nasal Cannula 3.0 07/22/16 17:45 98.2 120 20 123/78 99 Nasal Cannula 3.0 07/22/16 17:15 109 18 121/80 99 Nasal Cannula 3.0 07/22/16 16:45 98.2 109 18 121/80 99 Nasal Cannula 3.0 07/22/16 16:30 99.0 07/22/16 16:23 99.0 07/22/16 16:20 99.0 109 11 123/84 99 Room Air 07/22/16 16:06 107 20 126/88 99 Room Air 07/22/16 15:53 116 20 120/86 99 Room Air 07/22/16 15:45 118 20 120/76 99 Room Air 07/22/16 15:33 118 24 98 07/22/16 15:30 108 20 120/81 99 Room Air 07/22/16 15:29 112 24 99 07/22/16 15:25 105 20 122/78 100 Simple Mask 8.0 07/22/16 15:21 99.4 126 20 125/72 100 Simple Mask 8.0 Height (Feet): 5 Height (Inches): 2.00 Weight (Pounds): 130 General Appearance: WD/WN, no acute distress HEENT: normocephalic, atraumatic, anicteric, mucous membranes moist Respiratory/Chest: chest wall non-tender, lungs clear, normal breath sounds, no respiratory distress, no accessory muscle use Cardiovascular: normal peripheral pulses, normal rate, regular rhythm, no gallop/murmur Abdomen: normal bowel sounds, soft, non tender, no organomegaly, non distended , no mass, no scars Extremities: no cyanosis, no clubbing Skin: no rash, no lesions Microbiology Date/Time Source Procedure Growth Status 07/22/16 09:15 Blood Blood Culture - Preliminary Resulted Laboratory Tests Test 07/23/16 07:30 White Blood Count 12.9 K/UL (4.8-10.8) H Red Blood Count 3.69 M/UL (4.70-6.10) L Hemoglobin 11.1 G/DL (14.2-18.0) L Hematocrit 32.6 % (42.0-52.0) L Mean Corpuscular Volume 88 FL (80-99) Mean Corpuscular Hemoglobin 30.0 PG (27.0-31.0) Mean Corpuscular Hemoglobin Concent 34.0 G/DL (32.0-36.0) Red Cell Distribution Width 11.7 % (11.6-14.8) Platelet Count 351 K/UL (150-450) Mean Platelet Volume 6.2 FL (6.5-10.1) L Neutrophils (%) (Auto) 82.8 % (45.0-75.0) H Lymphocytes (%) (Auto) 9.3 % (20.0-45.0) L Monocytes (%) (Auto) 7.1 % (1.0-10.0) Eosinophils (%) (Auto) 0.2 % (0.0-3.0) Basophils (%) (Auto) 0.6 % (0.0-2.0) Sodium Level 135 mEQ/L (135-145) Potassium Level 4.2 mEQ/L (3.4-4.9) Chloride Level 97 mEQ/L (98-107) L Carbon Dioxide Level 24 mEQ/L (20-30) Anion Gap 14 (5-15) Blood Urea Nitrogen 6 mg/dL (7-23) L Creatinine 0.7 mg/dL (0.7-1.2) Estimat Glomerular Filtration Rate > 60 mL/min (>60) Glucose Level 148 mg/dL (74-106) H Calcium Level 8.7 mg/dL (8.6-10.2) Phosphorus Level 1.5 mg/dL (2.5-4.8) L Magnesium Level 1.8 mg/dL (1.7-2.5) Current Medications Medications (Trade) Dose Ordered Sig/Shelia Route PRN Reason Start Time Stop Time Status Last Admin Dose Admin Acetaminophen (Tylenol) 650 mg Q4H PRN ORAL Mild Pain/Temp > 100.5 07/20/16 22:00 08/19/16 21:59 07/21/16 18:55 Dextrose/ Electrolytes 1,000 ml @ 125 mls/hr Q8H IV 07/22/16 17:00 08/21/16 16:59 07/23/16 08:12 Hydromorphone HCl 1 mg 1 mg Q4H PRN IVP For Pain 07/21/16 20:45 07/28/16 20:44 07/23/16 13:09 Metronidazole (Flagyl) 100 ml @ 100 mls/hr Q6H IVPB 07/22/16 20:00 07/29/16 19:59 07/23/16 13:08 Ondansetron HCl (Zofran) 4 mg Q4H PRN IVP Nausea & Vomiting 07/21/16 21:00 08/20/16 20:59 07/21/16 21:54 Pantoprazole 40 mg 40 mg DAILY IVP 07/22/16 16:30 08/21/16 16:29 07/23/16 08:12 Piperacillin Sod/ Tazobactam Sod/ Dextrose (Zosyn/D5W) 110 ml @ 27.5 mls/hr EVERY 8 HOURS IVPB 07/22/16 17:00 07/27/16 16:59 07/23/16 14:14 Margy Childress M.D. Jul 23, 2016 14:41
[2016-07-23 16:42] VITALS: BP 117/70
--- NOTE | 2016-07-23 18:48 | General Progress Note ---
Assessment/Plan Assessment/Plan Assessment/Plan ASSESSMENT: 1. Leukocytosis, likely secondary to dilated appendix with perforated appendix and abscess likely explaining findings. ALso the patient with small bowel inflammation noted as well. No significant. Monitor for leukocytosis. 2. Appendicitis versus inflammatory bowel enteritis. 3. Abdominal pain. 4. Transaminitis. 5. Sepsis. RECOMMENDATIONS: 1. Monitor CBC 2. Peripheral smear reviewed 3. Monitor ESR and CRP 4. Antibiotics per ID service. 5. Appreciate GI, Surgical and ID recommendations. 6. Continue to closely monitor from Hematology perspective. Thank you, Rebekah Yanes MD Subjective Constitutional: Reports: no symptoms HEENT: Reports: no symptoms Cardiovascular: Reports: no symptoms Respiratory: Reports: no symptoms Gastrointestinal/Abdominal: Reports: no symptoms Genitourinary: Reports: no symptoms Neurologic/Psychiatric: Reports: no symptoms Endocrine: Reports: no symptoms Hematologic/Lymphatic: Reports: no symptoms Allergies: Coded Allergies: No Known Allergies (Unverified , 07/20/16) Objective Last 24 Hour Vital Signs Date Time Temp Pulse Resp B/P Pulse Ox O2 Delivery O2 Flow Rate FiO2 07/23/16 16:42 99.0 95 15 117/70 98 Room Air 07/23/16 13:39 98.2 07/23/16 11:56 98.2 91 16 117/79 98 Room Air 07/23/16 08:39 98.2 88 16 112/67 100 Nasal Cannula 07/23/16 04:00 97.9 95 18 107/69 98 Room Air 07/23/16 00:00 98.1 92 18 102/61 98 Nasal Cannula 2.0 07/22/16 20:00 98.1 102 18 118/62 100 Nasal Cannula 2.0 Intake and Output 07/22/16 07/23/16 19:00 07:00 Intake Total 2350.0 ml 1642.5 ml Output Total 575 ml 515 ml Balance 1775.0 ml 1127.5 ml Intake Oral 0 ml IV Total 2350.0 ml 1642.5 ml Output Urine Total 500 ml 400 ml Drainage Total 25 ml 115 ml Estimated Blood Loss 50 ml # Voids 2 Laboratory Tests 07/23/16 07:30: White Blood Count 12.9H, Red Blood Count 3.69L, Hemoglobin 11.1L, Hematocrit 32.6L, Mean Corpuscular Volume 88, Mean Corpuscular Hemoglobin 30.0, Mean Corpuscular Hemoglobin Concent 34.0, Red Cell Distribution Width 11.7, Platelet Count 351, Mean Platelet Volume 6.2L, Neutrophils (%) (Auto) 82.8H, Lymphocytes (%) (Auto) 9.3L, Monocytes (%) (Auto) 7.1, Eosinophils (%) (Auto) 0.2, Basophils (%) (Auto) 0.6, Sodium Level 135, Potassium Level 4.2, Chloride Level 97L, Carbon Dioxide Level 24, Anion Gap 14, Blood Urea Nitrogen 6L, Creatinine 0.7, Estimat Glomerular Filtration Rate > 60, Glucose Level 148H, Calcium Level 8.7, Phosphorus Level 1.5L, Magnesium Level 1.8 Height (Feet): 5 Height (Inches): 2.00 Weight (Pounds): 130 General Appearance: no apparent distress EENT: normal ENT inspection Neck: normal alignment Cardiovascular: normal rate Respiratory/Chest: lungs clear Abdomen: non tender Pelvis: no masses Extremities: non-tender Edema: no edema noted Arm (L), no edema noted Arm (R), no edema noted Leg (L), no edema noted Leg (R), no edema noted Pedal (L), no edema noted Pedal (R), no edema noted Generalized Edema: mild edema Neurologic: alert Skin: warm/dry Lymphatic: normal anterior cervical (L), normal anterior cervical (R), normal axillary (L), normal axillary (R), normal inguinal (L), normal inguinal (R), normal other, normal posterior cervical (L), normal posterior cervical (R), normal submandibular (L), normal submandibular (R), normal supraclavicular (L), normal supraclavicular (R) GURINDER YANES Jul 23, 2016 18:48
[2016-07-23 20:00] VITALS: BP 107/67
[2016-07-24] VITALS: BP 111/62
[2016-07-24] MEDS: D5 1/2NS w/KCl 20mEq 1,000 ML IV SCH ×4 (00:57→23:10)
[2016-07-24] MEDS: metroNIDAZOLE 500mg 100 ML IVPB SCH ×4 (02:23→20:56)
[2016-07-24] MEDS: HYDROmorphone 1mg/ml Carpuject IVP PRN ×5 (03:56→23:11)
[2016-07-24 04:00] VITALS: BP 109/59
[2016-07-24] MEDS: Piperacillin/Tazobactam 3.375 GM in D5W 110 ML IVPB SCH ×3 (06:13→23:10)
[2016-07-24 07:48] LABS: BASOPHILS % (AUTO) 0.6 % (0.0-2.0); EOSINOPHILS % (AUTO) 0.9 % (0.0-3.0); LYMPHOCYTES % (AUTO) 18.9 % (20.0-45.0); MEAN CORPUSCULAR HEMOGLOBIN 30.9 PG (27.0-31.0); MEAN CORPUSCULAR HGB CONC 34.8 G/DL (32.0-36.0); MEAN CORPUSCULAR VOLUME 89 FL (80-99); MEAN PLATELET VOLUME 6.1 FL (6.5-10.1); MONOCYTES % (AUTO) 7.1 % (1.0-10.0); NEUTROPHILS % (AUTO) 72.5 % (45.0-75.0); PLATELET COUNT 457 K/UL (150-450); RED BLOOD COUNT 3.96 M/UL (4.70-6.10); RED CELL DISTRIBUTION WIDTH 11.8 % (11.6-14.8); WHITE BLOOD COUNT 9.4 K/UL (4.8-10.8)
[2016-07-24 08:00] VITALS: BP 99/60
--- NOTE | 2016-07-24 08:00 | General Progress Note ---
Assessment/Plan Assessment/Plan ASSESSMENT: 1. Leukocytosis, likely secondary to dilated appendix with perforated appendix and abscess likely explaining findings. ALso the patient with small bowel inflammation noted as well. Has improved 2. Appendicitis versus inflammatory bowel enteritis. 3. Abdominal pain. 4. Transaminitis. 5. Sepsis. RECOMMENDATIONS: 1. Monitor CBC 2. Peripheral smear reviewed, no abnml noted 3. Monitor ESR and CRP 4. Antibiotics per ID service. 5. Appreciate GI, Surgical and ID recommendations. 6. Continue to closely monitor from Hematology perspective. Thank you, Christopher Yanes MD Subjective Constitutional: Reports: no symptoms HEENT: Reports: no symptoms Cardiovascular: Reports: no symptoms Respiratory: Reports: no symptoms Gastrointestinal/Abdominal: Reports: poor appetite Genitourinary: Reports: no symptoms Neurologic/Psychiatric: Reports: no symptoms Endocrine: Reports: no symptoms Hematologic/Lymphatic: Reports: anemia Allergies: Coded Allergies: No Known Allergies (Unverified , 07/20/16) Subjective abd pain is better, wbc has improved too Objective Last 24 Hour Vital Signs Date Time Temp Pulse Resp B/P Pulse Ox O2 Delivery O2 Flow Rate FiO2 07/24/16 04:00 98.6 72 18 109/59 100 Room Air 07/24/16 00:00 98.6 74 18 111/62 100 Room Air 07/23/16 20:00 98.2 88 16 107/67 98 Room Air 07/23/16 16:42 99.0 95 15 117/70 98 Room Air 07/23/16 13:39 98.2 07/23/16 11:56 98.2 91 16 117/79 98 Room Air 07/23/16 08:39 98.2 88 16 112/67 100 Nasal Cannula Intake and Output 07/23/16 07/24/16 19:00 07:00 Intake Total 610.0 ml 155.0 ml Output Total 1065 ml 620 ml Balance -455.0 ml -465.0 ml Intake Oral 0 ml IV Total 610.0 ml 155.0 ml Output Urine Total 1000 ml 600 ml Drainage Total 65 ml 20 ml # Voids 2 Laboratory Tests 07/24/16 04:30: Sodium Level [Pending], Potassium Level [Pending], Chloride Level [Pending], Carbon Dioxide Level [Pending], Blood Urea Nitrogen [Pending], Creatinine [ Pending], Estimat Glomerular Filtration Rate [Pending], Glucose Level [Pending] , Calcium Level [Pending] 07/24/16 04:35: White Blood Count 9.4, Red Blood Count 3.96L, Hemoglobin 12.2L, Hematocrit 35.1L , Mean Corpuscular Volume 89, Mean Corpuscular Hemoglobin 30.9, Mean Corpuscular Hemoglobin Concent 34.8, Red Cell Distribution Width 11.8, Platelet Count 457H, Mean Platelet Volume 6.1L, Neutrophils (%) (Auto) 72.5, Lymphocytes (%) (Auto) 18.9L, Monocytes (%) (Auto) 7.1, Eosinophils (%) (Auto) 0.9, Basophils (%) (Auto) 0.6 Height (Feet): 5 Height (Inches): 2.00 Weight (Pounds): 130 General Appearance: no apparent distress EENT: TMs normal Neck: supple Cardiovascular: regular rhythm Respiratory/Chest: no respiratory distress Abdomen: no organomegaly Extremities: non-tender Edema: mild edema Neurologic: alert Skin: warm/dry Christopher Yanes Jul 24, 2016 08:00
[2016-07-24 08:16] LABS: ANION GAP 15 (5-15); CARBON DIOXIDE 25 mEQ/L (20-30); CHLORIDE 98 mEQ/L (98-107); CREATININE 0.6 mg/dL (0.7-1.2); GLOMERULAR FILTRATION RATE > 60 mL/min (>60); HEMOLYSIS 1; SODIUM 138 mEQ/L (135-145)
[2016-07-24] MEDS: Pantoprazole Inj IVP SCH (08:35)
--- NOTE | 2016-07-24 11:35 | General Progress Note ---
Assessment/Plan Problem List: (1) Vomiting ICD Codes: R11.10 - Vomiting, unspecified SNOMED: 263832331 (2) Abdominal pain ICD Codes: R10.9 - Unspecified abdominal pain SNOMED: [id number] Status: progressing Assessment/Plan s/p appendectemy still has abdominal pain abx per id consulted dr campbell for pain meds Subjective Gastrointestinal/Abdominal: Reports: abdominal pain Allergies: Coded Allergies: No Known Allergies (Unverified , 07/20/16) Objective Last 24 Hour Vital Signs Date Time Temp Pulse Resp B/P Pulse Ox O2 Delivery O2 Flow Rate FiO2 07/24/16 09:05 98.6 07/24/16 08:00 98.1 83 20 99/60 99 Room Air 07/24/16 04:00 98.6 72 18 109/59 100 Room Air 07/24/16 00:00 98.6 74 18 111/62 100 Room Air 07/23/16 20:00 98.2 88 16 107/67 98 Room Air 07/23/16 16:42 99.0 95 15 117/70 98 Room Air 07/23/16 11:56 98.2 91 16 117/79 98 Room Air Intake and Output 07/23/16 07/24/16 19:00 07:00 Intake Total 610.0 ml 835.0 ml Output Total 1065 ml 675 ml Balance -455.0 ml 160.0 ml Intake Oral 0 ml IV Total 610.0 ml 835.0 ml Output Urine Total 1000 ml 600 ml Drainage Total 65 ml 75 ml # Voids 2 Laboratory Tests 07/24/16 04:30: Sodium Level 138, Potassium Level 4.0, Chloride Level 98, Carbon Dioxide Level 25, Anion Gap 15, Blood Urea Nitrogen 3L, Creatinine 0.6L, Estimat Glomerular Filtration Rate > 60, Glucose Level 133H, Calcium Level 9.0 07/24/16 04:35: White Blood Count 9.4, Red Blood Count 3.96L, Hemoglobin 12.2L, Hematocrit 35.1L , Mean Corpuscular Volume 89, Mean Corpuscular Hemoglobin 30.9, Mean Corpuscular Hemoglobin Concent 34.8, Red Cell Distribution Width 11.8, Platelet Count 457H, Mean Platelet Volume 6.1L, Neutrophils (%) (Auto) 72.5, Lymphocytes (%) (Auto) 18.9L, Monocytes (%) (Auto) 7.1, Eosinophils (%) (Auto) 0.9, Basophils (%) (Auto) 0.6 Height (Feet): 5 Height (Inches): 2.00 Weight (Pounds): 130 Abdomen: tender Mo Gamez MD Jul 24, 2016 11:35
[2016-07-24 12:00] VITALS: BP 119/74
--- NOTE | 2016-07-24 15:16 | General Surgery Progress Note ---
General Surgery-Progress Note Subjective Symptoms: improved Objective Last 24 Hour Vital Signs Date Time Temp Pulse Resp B/P Pulse Ox O2 Delivery O2 Flow Rate FiO2 07/24/16 14:10 97.9 07/24/16 12:00 97.9 67 20 119/74 98 Room Air 07/24/16 08:00 98.1 83 20 99/60 99 Room Air 07/24/16 04:00 98.6 72 18 109/59 100 Room Air 07/24/16 00:00 98.6 74 18 111/62 100 Room Air 07/23/16 20:00 98.2 88 16 107/67 98 Room Air 07/23/16 16:42 99.0 95 15 117/70 98 Room Air I&O Intake and Output 07/23/16 07/24/16 19:00 07:00 Intake Total 610.0 ml 960.0 ml Output Total 1065 ml 675 ml Balance -455.0 ml 285.0 ml Intake Oral 0 ml IV Total 610.0 ml 960.0 ml Output Urine Total 1000 ml 600 ml Drainage Total 65 ml 75 ml # Voids 2 Dressing: dry Wound: clean Drains: jessee - 200 ml of serous drainage from [place] drain Abdomen: soft Extremities: no edema Laboratory Tests Test 07/24/16 04:30 07/24/16 04:35 Sodium Level 138 mEQ/L (135-145) Potassium Level 4.0 mEQ/L (3.4-4.9) Chloride Level 98 mEQ/L (98-107) Carbon Dioxide Level 25 mEQ/L (20-30) Anion Gap 15 (5-15) Blood Urea Nitrogen 3 mg/dL (7-23) L Creatinine 0.6 mg/dL (0.7-1.2) L Estimat Glomerular Filtration Rate > 60 mL/min (>60) Glucose Level 133 mg/dL (74-106) H Calcium Level 9.0 mg/dL (8.6-10.2) White Blood Count 9.4 K/UL (4.8-10.8) Red Blood Count 3.96 M/UL (4.70-6.10) L Hemoglobin 12.2 G/DL (14.2-18.0) L Hematocrit 35.1 % (42.0-52.0) L Mean Corpuscular Volume 89 FL (80-99) Mean Corpuscular Hemoglobin 30.9 PG (27.0-31.0) Mean Corpuscular Hemoglobin Concent 34.8 G/DL (32.0-36.0) Red Cell Distribution Width 11.8 % (11.6-14.8) Platelet Count 457 K/UL (150-450) H Mean Platelet Volume 6.1 FL (6.5-10.1) L Neutrophils (%) (Auto) 72.5 % (45.0-75.0) Lymphocytes (%) (Auto) 18.9 % (20.0-45.0) L Monocytes (%) (Auto) 7.1 % (1.0-10.0) Eosinophils (%) (Auto) 0.9 % (0.0-3.0) Basophils (%) (Auto) 0.6 % (0.0-2.0) Assessment Post-op Diagnosis perforated appendicitis Additional Comments Stable post op course, had 2 BMs Plan Additional Comments Will leave NPO today, will leave drain in place Gregg Moses MD Jul 24, 2016 15:15
[2016-07-24 16:07] VITALS: BP 110/70
--- NOTE | 2016-07-24 17:38 | General Progress Note ---
Assessment/Plan Assessment/Plan Assessment - perforated appy - small bowel inflammation - ? reactive Recommendations - post op care - diet per surgery - f/u path - abx Subjective Allergies: Coded Allergies: No Known Allergies (Unverified , 07/20/16) Subjective seen in am abd pain better Objective Last 24 Hour Vital Signs Date Time Temp Pulse Resp B/P Pulse Ox O2 Delivery O2 Flow Rate FiO2 07/24/16 16:07 98.7 89 21 110/70 Room Air 07/24/16 14:10 97.9 07/24/16 12:00 97.9 67 20 119/74 98 Room Air 07/24/16 08:00 98.1 83 20 99/60 99 Room Air 07/24/16 04:00 98.6 72 18 109/59 100 Room Air 07/24/16 00:00 98.6 74 18 111/62 100 Room Air 07/23/16 20:00 98.2 88 16 107/67 98 Room Air Intake and Output 07/23/16 07/24/16 19:00 07:00 Intake Total 610.0 ml 960.0 ml Output Total 1065 ml 675 ml Balance -455.0 ml 285.0 ml Intake Oral 0 ml IV Total 610.0 ml 960.0 ml Output Urine Total 1000 ml 600 ml Drainage Total 65 ml 75 ml # Voids 2 Laboratory Tests 07/24/16 04:30: Sodium Level 138, Potassium Level 4.0, Chloride Level 98, Carbon Dioxide Level 25, Anion Gap 15, Blood Urea Nitrogen 3L, Creatinine 0.6L, Estimat Glomerular Filtration Rate > 60, Glucose Level 133H, Calcium Level 9.0 07/24/16 04:35: White Blood Count 9.4, Red Blood Count 3.96L, Hemoglobin 12.2L, Hematocrit 35.1L , Mean Corpuscular Volume 89, Mean Corpuscular Hemoglobin 30.9, Mean Corpuscular Hemoglobin Concent 34.8, Red Cell Distribution Width 11.8, Platelet Count 457H, Mean Platelet Volume 6.1L, Neutrophils (%) (Auto) 72.5, Lymphocytes (%) (Auto) 18.9L, Monocytes (%) (Auto) 7.1, Eosinophils (%) (Auto) 0.9, Basophils (%) (Auto) 0.6 Height (Feet): 5 Height (Inches): 2.00 Weight (Pounds): 130 Objective WDWN NCAT supple CTA RRR Soft wound OK, LLQ drain no edema non focal KARLO BOUCHER Jul 24, 2016 17:38
[2016-07-24 20:00] VITALS: BP 115/72
[2016-07-25] VITALS: BP 117/72
[2016-07-25] MEDS: metroNIDAZOLE 500mg 100 ML IVPB SCH ×4 (02:51→19:52)
[2016-07-25] MEDS: HYDROmorphone 1mg/ml Carpuject IVP PRN ×3 (03:18→11:06)
[2016-07-25 04:00] VITALS: BP 117/73
[2016-07-25] MEDS: Piperacillin/Tazobactam 3.375 GM in D5W 110 ML IVPB SCH ×3 (06:45→22:17)
[2016-07-25 08:00] VITALS: BP 110/68
[2016-07-25 08:23] LABS: ANION GAP 14 (5-15); CALCIUM 9.1 mg/dL (8.6-10.2); CARBON DIOXIDE 28 mEQ/L (20-30); CHLORIDE 95 mEQ/L (98-107); CREATININE 0.6 mg/dL (0.7-1.2); GLOMERULAR FILTRATION RATE > 60 mL/min (>60); HEMOLYSIS 2; POTASSIUM 3.6 mEQ/L (3.4-4.9); SODIUM 137 mEQ/L (135-145)
[2016-07-25] MEDS: D5 1/2NS w/KCl 20mEq 1,000 ML IV SCH ×2 (08:31→13:06)
[2016-07-25] MEDS: Pantoprazole Inj IVP SCH (08:31)
[2016-07-25 08:34] LABS: BASOPHILS % (AUTO) 0.7 % (0.0-2.0); EOSINOPHILS % (AUTO) 2.1 % (0.0-3.0); LYMPHOCYTES % (AUTO) 25.4 % (20.0-45.0); MEAN CORPUSCULAR HEMOGLOBIN 30.9 PG (27.0-31.0); MEAN CORPUSCULAR VOLUME 88 FL (80-99); MEAN PLATELET VOLUME 5.4 FL (6.5-10.1); MONOCYTES % (AUTO) 8.1 % (1.0-10.0); NEUTROPHILS % (AUTO) 63.6 % (45.0-75.0); PLATELET COUNT 496 K/UL (150-450); RED BLOOD COUNT 3.88 M/UL (4.70-6.10); RED CELL DISTRIBUTION WIDTH 11.6 % (11.6-14.8); WHITE BLOOD COUNT 7.1 K/UL (4.8-10.8)
--- NOTE | 2016-07-25 10:18 | Operative Note - Dictated ---
DATE OF OPERATION: 07/22/2016 PREOPERATIVE DIAGNOSIS: Abdominal pain and worsening leukocytosis. POSTOPERATIVE DIAGNOSIS: Perforated appendicitis. ATTENDING SURGEON: Jamie Vail M.D. CYLINDER MACHINE OPERATOR SURGEON: None. ANESTHESIOLOGIST: Thom Perez M.D. ANESTHESIA: General SLEEVE TAILOR. OPERATION PERFORMED: 1. Diagnostic laparoscopy. 2. Laparoscopic appendectomy. SPECIMENS: Appendix and fecalith in the pathology for review. COMPLICATIONS: None. CONDITION: Stable. FLUIDS: Please see anesthesia records. ESTIMATED BLOOD LOSS: Minimal. DRAINS: A 19-Bangladeshi Sigifredo drain left in the pelvis through the left lateral port. IMPLANTS: None. WOUND CLASSIFICATION: Class III. ANTIBIOTICS: The patient was on scheduled therapeutic antibiotics given acute inflammatory process prior to entering the operating room, and was also given Flagyl during the procedure when perforated appendicitis was identified. OPERATIVE FINDINGS: 1. Perforated appendicitis with perforation at the base of the appendix where fecalith was dislodged. 2. Fecaliths were removed through the perforation at the base of the appendix. 3. Significant pelvic and retroappendiceal and cecal inflammation. 4. Pelvic abscess. Periappendiceal abscess. INDICATIONS FOR PROCEDURE: This is a 25-year-old male who was seen prior for abdominal pain and admitted. During that episode, the patient had leukocytosis and abdominal pain was generalized without any peritoneal signs. At that time, CT showed some thickening of the small bowel, but appendix was otherwise normal. The patient was given fluid resuscitations and pain medication and soon recovered without incident and was discharged home in stable and comfortable condition without complaints. The patient returned approximately a week later to the emergency department complaining of abdominal pain, nausea, and vomiting, but at this time did not have diarrhea as he did in the prior episode. He did again have a leukocytosis, which on antibiotics was worsening. During hospitalization, abdominal exam was stable, but mildly worrisome given mild peritoneal signs. The CT from the second admission was reviewed and the appendix was noted to be dilated with no significant inflammation around the appendix noted and the small bowel inflammation had improved. Given the patient's persistent worsening leukocytosis, abdominal pain, which is mildly worsening, decision was made to proceed with diagnostic laparoscopy, possible appendectomy. When discussed this with the patient, it was explained to him that this was an atypical presentation for appendicitis, but it is also potential for inflammatory bowel disease and/or enteritis. The clear diagnosis was not identified preoperatively with imaging exam and test, and therefore diagnostic laparoscopy was recommended. After risks, benefits, and alternatives, surgical intervention were discussed with the patient and his family. They expressed understanding and requested to proceed with surgical intervention given lack of improvement in pain with intravenous antibiotics and fluid resuscitation. Consent was obtained. The patient was taken to the operating room. OPERATIVE NOTE: The patient was taken to the operating room and placed on table in a supine position, and bilateral arms out. All bony prominences well padded with gel pads. Preoperative time-out was taken identifying the patient, procedure, operating staff, and surgical staff. SCDs were placed. No Jeffries was placed given the patient has voided just immediately prior to entering the operating room. Prior to entering the operating room, the patient was on scheduled antibiotics for his acute inflammatory process. General seizure was induced and the patient was intubated. The left arm was then tucked. The abdomen was then prepped and draped in standard surgical fashion. Using a fresh 15 blade, an umbilical incision was made and carried down to the fascia. The fascia was elevated and incised, and the abdomen entered under direct visualization with an open Bhavya technique. A balloon tipped Bhavya trocar was inserted into the abdomen and the abdomen was insufflated 12 to 15 mmHg. The patient tolerated the insufflation well. The camera was inserted into the abdomen and no acute injury from trocar placement was identified. The abdomen was inspected at this time. No significant abnormalities were noted. Decision was made to place a 5 millimeter trocar in the suprapubic midline followed by the left lower quadrant. These 5 mm trocars were placed under direct visualization without complication. Laparoscopic graspers were then used to evaluate the right upper quadrant and the gallbladder and liver looked otherwise normal. No abnormalities noted on the right upper quadrant. The left lower quadrant was evaluated and no abnormalities were noted. The pelvis was evaluated and there was some murky purulent fluid within the pelvis. This was suctioned out. The cecum was identified as well as the taeniae, which was followed down to the proximal end of the cecum, at which time a significantly inflamed area of tissue was noted. As we identified the terminal ileum and mobilized the small bowel, it was identified that there was a pelvic appendix with significant inflammatory tissue and some purulent fluid around it. The appendix was grasped and the cecum was elevated as well as the small bowel identified. The ileocecal valve was just adjacent to the area of significant inflammation. The appendix was followed from its base towards its tip and tip was identified and freed from its inflammatory attachments to the posterior peritoneum. The appendix was then elevated, and once elevated, it was noted at the base of the appendix just at the cecum, there had been a prior perforation and 2 fecaliths were noted just sitting adjacent to the appendix in a pool of purulent fluid. The 2 fecaliths were removed from the abdomen without complication. The purulent fluid was evacuated. At this time, it could be seen that the base of the appendix was more than 50% perforated and had been for a little bit of time. The mesoappendix could be identified with some inflammatory tissue at the mesoappendix by connecting to the terminal ileum. Careful dissection was made into the mesoappendix and a window was made from the base to the distal portion of the mesoappendix. At this time, the 5 millimeter left lateral quadrant trocar was up-sized to 11 millimeter[address] Upon attempting to place a laparoscopic linear staple on the mesoappendix, its friability allowed it to tear apart and the remaining aspect with the appendiceal artery attached to the proximal aspect of appendix. At this time, upon mobilizing the stapler out of the abdomen, the appendiceal artery was lacerated and some minimal bleeding was identified. A Mariana grasper was used to grasp the proximal end of the appendiceal artery and then 3 laparoscopic 10 millimeter clips were placed obtaining good hemostasis. Once this was completed, the appendix was fully freed given that it was already disconnected at the base due the perforation and now disconnected from the artery in the mesoappendix. Appendix was then placed in a laparoscopic retrieval bag and removed from the umbilical port. The abdomen was then reinspected and all the purulent fluid was evacuated. The base of the appendix was inspected and the remainder of the perforated base was clipped together. There was no room to firing a laparoscopic stapler and there was too much inflammation around the cecum with too close proximity to the ileocecal valve to safely fire the stapler. There was a moderate amount of normal gas in the colon as well as a normal small bowel. No bowel contents were extruding from the perforation site, implying more likely that it had already sealed itself off. At this time, the abdomen was irrigated with copious amounts of normal saline until it became clear. Once this was completed, the appendiceal artery was identified with good hemostasis, the base of the appendix without any leakage of stool or other abnormalities and the remaining purulent fluid and murky contents were evacuated. At this time, decision was made to leave a 19-Bangladeshi Sigifredo drain in the pelvis, which was placed through the left lateral port and sutured into place using a 2-0 nylon suture. The abdomen was then allowed to evacuate and the procedure concluded. The umbilical fascia site was closed using an 0 Vicryl UR suture in a [id number] fashion followed by closure of all the skin incisions using a 4-0 Monocryl suture. No immediate postoperative complications noted. The patient tolerated the procedure well and was extubated and taken to the post anesthesia care unit in stable condition. Jamie Vail M.D. DR: IJEOMA JOB#: [id number] CC: LONNIE
[2016-07-25 12:00] VITALS: BP 116/74
--- NOTE | 2016-07-25 12:05 | General Progress Note ---
Progress Note Progress Note Surgery: patient seen and examined at bedside. doing well. no issues. afebrile, HD stable, exam benign, labs improved, drain output okay, +BM's. plan: start clear liquids TKO IV fluids once tolerating change to oral meds goal to d/c drain tomorrow and possibly d/c home on oral abx. Jamie Vail Jul 25, 2016 12:05
--- NOTE | 2016-07-25 12:26 | General Progress Note ---
Assessment/Plan Problem List: (1) Vomiting ICD Codes: R11.10 - Vomiting, unspecified SNOMED: 841112614 (2) Abdominal pain ICD Codes: R10.9 - Unspecified abdominal pain SNOMED: 64679018 Status: progressing Assessment/Plan s/p appendectemy still has abdominal pain lap appy dc once cleared by id and surgeon afebrile Subjective ROS Limited/Unobtainable: Yes Gastrointestinal/Abdominal: Reports: abdominal pain Allergies: Coded Allergies: No Known Allergies (Unverified , 07/20/16) Objective Last 24 Hour Vital Signs Date Time Temp Pulse Resp B/P Pulse Ox O2 Delivery O2 Flow Rate FiO2 07/25/16 11:36 98.1 07/25/16 08:00 98.1 82 18 110/68 99 Room Air 07/25/16 04:00 97.7 77 18 117/73 98 Room Air 07/25/16 00:00 98.0 94 18 117/72 96 Room Air 07/24/16 20:00 98.2 91 20 115/72 96 Room Air 07/24/16 16:07 98.7 89 21 110/70 Room Air Intake and Output 07/24/16 07/25/16 19:00 07:00 Intake Total 1125 ml 125 ml Output Total 205 ml 620 ml Balance 920 ml -495 ml IV Total 1125 ml 125 ml Output Urine Total 600 ml Drainage Total 205 ml 20 ml # Voids 1 # Bowel Movements 2 Laboratory Tests 07/25/16 06:33: White Blood Count 7.1, Red Blood Count 3.88L, Hemoglobin 12.0L, Hematocrit 34.2L , Mean Corpuscular Volume 88, Mean Corpuscular Hemoglobin 30.9, Mean Corpuscular Hemoglobin Concent 35.0, Red Cell Distribution Width 11.6, Platelet Count 496H, Mean Platelet Volume 5.4L, Neutrophils (%) (Auto) 63.6, Lymphocytes (%) (Auto) 25.4, Monocytes (%) (Auto) 8.1, Eosinophils (%) (Auto) 2.1, Basophils (%) (Auto) 0.7, Sodium Level 137, Potassium Level 3.6, Chloride Level 95L, Carbon Dioxide Level 28, Anion Gap 14, Blood Urea Nitrogen 4L, Creatinine 0.6L, Estimat Glomerular Filtration Rate > 60, Glucose Level 121H, Calcium Level 9.1 Height (Feet): 5 Height (Inches): 2.00 Weight (Pounds): 130 Neck: supple Cardiovascular: normal rate Respiratory/Chest: lungs clear Abdomen: soft Mo Gamez MD Jul 25, 2016 12:26
[2016-07-25] MEDS: Norco 5mg/325mg tab ORAL PRN ×2 (14:37→22:17)
--- NOTE | 2016-07-25 15:45 | Infectious Diseases Prog Note ---
Assessment/Plan Problems: (1) Appendicitis, acute Assessment & Plan: complicated with peroforation, S/P LAP APPY, on zosyn and flagyl , clinically improving, further recommendations are per general surgery , blood culture grew coag negative staph from one bottle , most likely contamination . would continue current antibiotics for now until drainage is removed, and switch to oral for another 10 days (2) Cholecystitis, acute Assessment & Plan: ruled out with normal HIDA scan , already on zosyn and flagyl , surgery is following (3) Sepsis Assessment & Plan: less likely with coag negative staph from one bottle , on zosyn (4) Abdominal pain Assessment & Plan: due to the above, continue pain management as per primary Subjective Constitutional: Reports: no symptoms HEENT: Reports: no symptoms Respiratory: Reports: no symptoms Cardiovascular: Reports: no symptoms Gastrointestinal/Abdominal: Reports: bloating, diarrhea Genitourinary: Reports: no symptoms Neurologic: Reports: no symptoms Psychiatric: Reports: no symptoms Skin: Reports: no symptoms Allergies: Coded Allergies: No Known Allergies (Unverified , 07/20/16) Subjective he was comfortable in bed, awake and not in distress, has surgical drainage in the LLQ Objective Vital Signs Last 24 Hour Vital Signs Date Time Temp Pulse Resp B/P Pulse Ox O2 Delivery O2 Flow Rate FiO2 07/25/16 12:00 97.0 76 20 116/74 97 Room Air 07/25/16 11:36 98.1 07/25/16 08:00 98.1 82 18 110/68 99 Room Air 07/25/16 04:00 97.7 77 18 117/73 98 Room Air 07/25/16 00:00 98.0 94 18 117/72 96 Room Air 07/24/16 20:00 98.2 91 20 115/72 96 Room Air 07/24/16 16:07 98.7 89 21 110/70 Room Air Height (Feet): 5 Height (Inches): 2.00 Weight (Pounds): 130 General Appearance: WD/WN, no acute distress HEENT: normocephalic, atraumatic, anicteric Respiratory/Chest: chest wall non-tender, lungs clear, normal breath sounds, no respiratory distress, no accessory muscle use Cardiovascular: normal peripheral pulses, normal rate, regular rhythm, no gallop/murmur Abdomen: non distended, no mass, hypoactive bowel sounds, distended, tender, other - left lower side drainage Extremities: no cyanosis, no clubbing Skin: no rash, no lesions Laboratory Tests Test 07/25/16 06:33 White Blood Count 7.1 K/UL (4.8-10.8) Red Blood Count 3.88 M/UL (4.70-6.10) L Hemoglobin 12.0 G/DL (14.2-18.0) L Hematocrit 34.2 % (42.0-52.0) L Mean Corpuscular Volume 88 FL (80-99) Mean Corpuscular Hemoglobin 30.9 PG (27.0-31.0) Mean Corpuscular Hemoglobin Concent 35.0 G/DL (32.0-36.0) Red Cell Distribution Width 11.6 % (11.6-14.8) Platelet Count 496 K/UL (150-450) H Mean Platelet Volume 5.4 FL (6.5-10.1) L Neutrophils (%) (Auto) 63.6 % (45.0-75.0) Lymphocytes (%) (Auto) 25.4 % (20.0-45.0) Monocytes (%) (Auto) 8.1 % (1.0-10.0) Eosinophils (%) (Auto) 2.1 % (0.0-3.0) Basophils (%) (Auto) 0.7 % (0.0-2.0) Sodium Level 137 mEQ/L (135-145) Potassium Level 3.6 mEQ/L (3.4-4.9) Chloride Level 95 mEQ/L (98-107) L Carbon Dioxide Level 28 mEQ/L (20-30) Anion Gap 14 (5-15) Blood Urea Nitrogen 4 mg/dL (7-23) L Creatinine 0.6 mg/dL (0.7-1.2) L Estimat Glomerular Filtration Rate > 60 mL/min (>60) Glucose Level 121 mg/dL (74-106) H Calcium Level 9.1 mg/dL (8.6-10.2) Current Medications Medications (Trade) Dose Ordered Sig/Shelia Route PRN Reason Start Time Stop Time Status Last Admin Dose Admin Acetaminophen (Tylenol) 650 mg Q4H PRN ORAL Mild Pain/Temp > 100.5 07/20/16 22:00 08/19/16 21:59 07/23/16 23:03 Acetaminophen/ Hydrocodone Bitart ([place] 5/325) 1 tab Q4H PRN ORAL Moderate Pain (Pain Scale 4-6) 07/25/16 12:15 08/01/16 12:14 07/25/16 14:37 Dextrose/ Electrolytes (D5 0.45%NS W/ KCl 20mEq) 1,000 ml @ 75 mls/hr [id number] IV 07/25/16 13:00 08/24/16 12:59 07/25/16 13:06 Hydromorphone HCl (Dilaudid) 1 mg Q4H PRN IVP Severe Pain (Pain Scale 7-10) 07/25/16 12:09 07/28/16 20:44 Metronidazole 100 ml @ 100 mls/hr Q6H IVPB 07/22/16 20:00 07/29/16 19:59 07/25/16 14:01 Ondansetron HCl 4 mg 4 mg Q4H PRN IVP Nausea & Vomiting 07/21/16 21:00 08/20/16 20:59 07/25/16 14:04 Pantoprazole 40 mg 40 mg DAILY IVP 07/22/16 16:30 08/21/16 16:29 07/25/16 08:31 Piperacillin Sod/ Tazobactam Sod/ Dextrose (Zosyn/D5W) 110 ml @ 27.5 mls/hr EVERY 8 HOURS IVPB 07/22/16 17:00 07/27/16 16:59 07/25/16 14:01 Margy Childress M.D. Jul 25, 2016 15:45
[2016-07-25 16:16] VITALS: BP 111/70
[2016-07-25 20:33] VITALS: BP 109/67
--- NOTE | 2016-07-25 22:12 | General Progress Note ---
Assessment/Plan Assessment/Plan Assessment - perforated appy - small bowel inflammation - ? reactive Recommendations - post op care - diet per surgery - f/u path - abx Subjective Allergies: Coded Allergies: No Known Allergies (Unverified , 07/20/16) Subjective seen in am abd pain better Objective Last 24 Hour Vital Signs Date Time Temp Pulse Resp B/P Pulse Ox O2 Delivery O2 Flow Rate FiO2 07/25/16 20:33 100.2 78 19 109/67 98 Room Air 07/25/16 16:16 99.1 86 18 111/70 98 Room Air 07/25/16 12:00 97.0 76 20 116/74 97 Room Air 07/25/16 11:36 98.1 07/25/16 08:00 98.1 82 18 110/68 99 Room Air 07/25/16 04:00 97.7 77 18 117/73 98 Room Air 07/25/16 00:00 98.0 94 18 117/72 96 Room Air Intake and Output 07/24/16 07/25/16 19:00 07:00 Intake Total 1125 ml 125 ml Output Total 205 ml 620 ml Balance 920 ml -495 ml IV Total 1125 ml 125 ml Output Urine Total 600 ml Drainage Total 205 ml 20 ml # Voids 1 # Bowel Movements 2 Laboratory Tests 07/25/16 06:33: White Blood Count 7.1, Red Blood Count 3.88L, Hemoglobin 12.0L, Hematocrit 34.2L , Mean Corpuscular Volume 88, Mean Corpuscular Hemoglobin 30.9, Mean Corpuscular Hemoglobin Concent 35.0, Red Cell Distribution Width 11.6, Platelet Count 496H, Mean Platelet Volume 5.4L, Neutrophils (%) (Auto) 63.6, Lymphocytes (%) (Auto) 25.4, Monocytes (%) (Auto) 8.1, Eosinophils (%) (Auto) 2.1, Basophils (%) (Auto) 0.7, Sodium Level 137, Potassium Level 3.6, Chloride Level 95L, Carbon Dioxide Level 28, Anion Gap 14, Blood Urea Nitrogen 4L, Creatinine 0.6L, Estimat Glomerular Filtration Rate > 60, Glucose Level 121H, Calcium Level 9.1 Height (Feet): 5 Height (Inches): 2.00 Weight (Pounds): 130 Objective WDWN NCAT supple CTA RRR Soft wound OK, LLQ drain no edema non focal KARLO BOUCHER Jul 25, 2016 22:12
--- NOTE | 2016-07-25 22:55 | General Progress Note ---
Assessment/Plan Assessment/Plan ASSESSMENT: 1. Leukocytosis, likely secondary to dilated appendix with perforated appendix and abscess likely explaining findings. ALso the patient with small bowel inflammation noted as well. Has improved 2. Appendicitis versus inflammatory bowel enteritis. 3. Abdominal pain. 4. Transaminitis. 5. Sepsis. RECOMMENDATIONS: 1. Monitor CBC 2. Peripheral smear reviewed, no abnml noted 3. Monitor ESR and CRP 4. Antibiotics per ID service. 5. Appreciate GI, Surgical and ID recommendations. 6. Continue to closely monitor from Hematology perspective. Thank you, Christopher Yanes MD Subjective Constitutional: Reports: no symptoms HEENT: Reports: no symptoms Cardiovascular: Reports: no symptoms Respiratory: Reports: no symptoms Gastrointestinal/Abdominal: Reports: poor appetite Genitourinary: Reports: no symptoms Neurologic/Psychiatric: Reports: no symptoms Endocrine: Reports: no symptoms Hematologic/Lymphatic: Reports: anemia Allergies: Coded Allergies: No Known Allergies (Unverified , 07/20/16) Subjective abd pain is better, wbc has improved too, potential d/c soon Objective Last 24 Hour Vital Signs Date Time Temp Pulse Resp B/P Pulse Ox O2 Delivery O2 Flow Rate FiO2 07/25/16 20:33 100.2 78 19 109/67 98 Room Air 07/25/16 16:16 99.1 86 18 111/70 98 Room Air 07/25/16 12:00 97.0 76 20 116/74 97 Room Air 07/25/16 11:36 98.1 07/25/16 08:00 98.1 82 18 110/68 99 Room Air 07/25/16 04:00 97.7 77 18 117/73 98 Room Air 07/25/16 00:00 98.0 94 18 117/72 96 Room Air Intake and Output 07/24/16 07/25/16 19:00 07:00 Intake Total 1125 ml 125 ml Output Total 205 ml 620 ml Balance 920 ml -495 ml IV Total 1125 ml 125 ml Output Urine Total 600 ml Drainage Total 205 ml 20 ml # Voids 1 # Bowel Movements 2 Laboratory Tests 07/25/16 06:33: White Blood Count 7.1, Red Blood Count 3.88L, Hemoglobin 12.0L, Hematocrit 34.2L , Mean Corpuscular Volume 88, Mean Corpuscular Hemoglobin 30.9, Mean Corpuscular Hemoglobin Concent 35.0, Red Cell Distribution Width 11.6, Platelet Count 496H, Mean Platelet Volume 5.4L, Neutrophils (%) (Auto) 63.6, Lymphocytes (%) (Auto) 25.4, Monocytes (%) (Auto) 8.1, Eosinophils (%) (Auto) 2.1, Basophils (%) (Auto) 0.7, Sodium Level 137, Potassium Level 3.6, Chloride Level 95L, Carbon Dioxide Level 28, Anion Gap 14, Blood Urea Nitrogen 4L, Creatinine 0.6L, Estimat Glomerular Filtration Rate > 60, Glucose Level 121H, Calcium Level 9.1 Height (Feet): 5 Height (Inches): 2.00 Weight (Pounds): 130 General Appearance: no apparent distress EENT: TMs normal Neck: normal alignment Cardiovascular: normal rate Respiratory/Chest: no respiratory distress Abdomen: soft Extremities: non-tender Edema: 1+ Leg (L), 1+ Leg (R) Neurologic: oriented x 3 Skin: warm/dry Christopher Yanes Jul 25, 2016 22:55
[2016-07-26] VITALS: BP 108/61
[2016-07-26] MEDS: D5 1/2NS w/KCl 20mEq 1,000 ML IV SCH ×2 (02:20→17:03)
[2016-07-26] MEDS: metroNIDAZOLE 500mg 100 ML IVPB SCH ×4 (03:03→19:02)
[2016-07-26] MEDS: Norco 5mg/325mg tab ORAL PRN ×2 (03:10→19:02)
[2016-07-26 04:00] VITALS: BP 101/59
[2016-07-26] MEDS: Piperacillin/Tazobactam 3.375 GM in D5W 110 ML IVPB SCH ×3 (05:15→22:02)
[2016-07-26 08:00] VITALS: BP 101/65
[2016-07-26] MEDS: Pantoprazole Inj IVP SCH (08:36)
--- NOTE | 2016-07-26 09:49 | General Progress Note ---
Assessment/Plan Assessment/Plan ASSESSMENT: 1. Leukocytosis, likely secondary to dilated appendix with perforated appendix and abscess likely explaining findings. ALso the patient with small bowel inflammation noted as well. Has improved 2. Appendicitis versus inflammatory bowel enteritis. 3. Abdominal pain. 4. Transaminitis. 5. Sepsis. RECOMMENDATIONS: 1. Monitor CBC 2. Peripheral smear reviewed, no abnml noted 3. Monitor ESR and CRP 4. Antibiotics per ID service. 5. Appreciate GI, Surgical and ID recs 6. Continue to closely monitor from Hematology perspective. Thank you, Christopher Yanes MD Subjective Constitutional: Reports: no symptoms HEENT: Reports: no symptoms Cardiovascular: Reports: no symptoms Respiratory: Reports: no symptoms Gastrointestinal/Abdominal: Reports: no symptoms Genitourinary: Reports: no symptoms Neurologic/Psychiatric: Reports: no symptoms Endocrine: Reports: no symptoms Hematologic/Lymphatic: Reports: anemia Allergies: Coded Allergies: No Known Allergies (Unverified , 07/20/16) Subjective abd pain is better, no complaints, no bleeding Objective Last 24 Hour Vital Signs Date Time Temp Pulse Resp B/P Pulse Ox O2 Delivery O2 Flow Rate FiO2 07/26/16 08:00 99.0 79 20 101/65 95 Room Air 07/26/16 04:00 99.5 75 18 101/59 96 Room Air 07/26/16 00:00 98.2 76 19 108/61 99 Room Air 07/25/16 20:33 100.2 78 19 109/67 98 Room Air 07/25/16 16:16 99.1 86 18 111/70 98 Room Air 07/25/16 12:00 97.0 76 20 116/74 97 Room Air 07/25/16 11:36 98.1 Intake and Output 07/25/16 07/26/16 19:00 07:00 Intake Total 860 ml 1080 ml Output Total 20 ml 3295 ml Balance 840 ml -2215 ml Intake Oral 360 ml 480 ml IV Total 500 ml 600 ml Output Urine Total 3275 ml Drainage Total 20 ml 20 ml # Voids 2 5 Height (Feet): 5 Height (Inches): 2.00 Weight (Pounds): 130 General Appearance: alert EENT: normal ENT inspection Neck: supple Cardiovascular: regular rhythm Respiratory/Chest: normal breath sounds Abdomen: no organomegaly Extremities: normal inspection Edema: 1+ Leg (L), 1+ Leg (R) Edema: mild edema Neurologic: alert Skin: warm/dry Christopher Yanes Jul 26, 2016 09:49
--- NOTE | 2016-07-26 09:58 | General Progress Note ---
Assessment/Plan Problem List: (1) Vomiting ICD Codes: R11.10 - Vomiting, unspecified SNOMED: 516777059 (2) Abdominal pain ICD Codes: R10.9 - Unspecified abdominal pain SNOMED: 62748693 Status: progressing Assessment/Plan diet order per surgeon reviwed chart and labs lap appy dc once cleared by id and surgeon Subjective ROS Limited/Unobtainable: Yes Constitutional: Reports: no symptoms Allergies: Coded Allergies: No Known Allergies (Unverified , 07/20/16) Objective Last 24 Hour Vital Signs Date Time Temp Pulse Resp B/P Pulse Ox O2 Delivery O2 Flow Rate FiO2 07/26/16 08:00 99.0 79 20 101/65 95 Room Air 07/26/16 04:00 99.5 75 18 101/59 96 Room Air 07/26/16 00:00 98.2 76 19 108/61 99 Room Air 07/25/16 20:33 100.2 78 19 109/67 98 Room Air 07/25/16 16:16 99.1 86 18 111/70 98 Room Air 07/25/16 12:00 97.0 76 20 116/74 97 Room Air 07/25/16 11:36 98.1 Intake and Output 07/25/16 07/26/16 19:00 07:00 Intake Total 860 ml 1080 ml Output Total 20 ml 3295 ml Balance 840 ml -2215 ml Intake Oral 360 ml 480 ml IV Total 500 ml 600 ml Output Urine Total 3275 ml Drainage Total 20 ml 20 ml # Voids 2 5 Height (Feet): 5 Height (Inches): 2.00 Weight (Pounds): 130 Neck: supple Abdomen: tender Mo Gamez MD Jul 26, 2016 09:58
[2016-07-26] MEDS: HYDROmorphone 1mg/ml Carpuject IVP PRN ×2 (10:17→22:01)
--- NOTE | 2016-07-26 12:07 | General Surgery Progress Note ---
General Surgery-Progress Note Subjective Symptoms: improved Objective Last 24 Hour Vital Signs Date Time Temp Pulse Resp B/P Pulse Ox O2 Delivery O2 Flow Rate FiO2 07/26/16 10:47 99.0 07/26/16 08:00 99.0 79 20 101/65 95 Room Air 07/26/16 04:00 99.5 75 18 101/59 96 Room Air 07/26/16 00:00 98.2 76 19 108/61 99 Room Air 07/25/16 20:33 100.2 78 19 109/67 98 Room Air 07/25/16 16:16 99.1 86 18 111/70 98 Room Air I&O Intake and Output 07/25/16 07/26/16 19:00 07:00 Intake Total 860 ml 1080 ml Output Total 20 ml 3295 ml Balance 840 ml -2215 ml Intake Oral 360 ml 480 ml IV Total 500 ml 600 ml Output Urine Total 3275 ml Drainage Total 20 ml 20 ml # Voids 2 5 Dressing: dry Wound: clean Drains: jessee - sero sanguinous Cardiovascular: RSR Respiratory: clear Abdomen: soft Extremities: no edema Assessment Post-op Diagnosis perforated appendicitis Additional Comments Pt now having low grade fevers, denies N or V Plan Additional Comments Will advance diet, recheck CBC Gregg Moses MD Jul 26, 2016 12:07
[2016-07-26 12:09] VITALS: BP 118/69
--- NOTE | 2016-07-26 15:46 | Infectious Diseases Prog Note ---
Assessment/Plan Problems: (1) Appendicitis, acute Assessment & Plan: complicated with peroforation, S/P LAP APPY, on zosyn and flagyl , clinically improving, further recommendations are per general surgery , blood culture grew coag negative staph from one bottle , most likely contamination . would continue current antibiotics for now until drainage is removed, and switch to oral for another 10 days (2) Cholecystitis, acute Assessment & Plan: ruled out with normal HIDA scan , already on zosyn and flagyl , surgery is following (3) Sepsis Assessment & Plan: less likely with coag negative staph from one bottle , on zosyn (4) Abdominal pain Assessment & Plan: due to the above, continue pain management as per primary (5) Fever Assessment & Plan: suspect due to surgical wound, continue current antibiotics , monitor vitals for now Subjective Constitutional: Denies: anorexia, chills, drenching sweats, fatigue, fever, no symptoms, other HEENT: Denies: congestion, coryza, dysphagia, hearing change, no symptoms, other, visual change Respiratory: Denies: dry cough, no symptoms, other, productive cough, shortness of breath Cardiovascular: Denies: chest pain, dyspnea on exertion, no symptoms, other, palpitations Gastrointestinal/Abdominal: Denies: bloating, blood in stool, constipation, diarrhea, nausea, no symptoms, other, vomiting Genitourinary: Denies: dysuria, frequency, hematuria, no symptoms, nocturia, other Neurologic: Denies: confusion, headache, no symptoms, numbness, other, weakness Psychiatric: Denies: anxiety, depression, no symptoms, other Skin: Denies: no symptoms, other, rash, ulcer Allergies: Coded Allergies: No Known Allergies (Unverified , 07/20/16) Subjective he was comfortable in bed, awake and not in distress, has surgical drainage in the LLQ Objective Vital Signs Last 24 Hour Vital Signs Date Time Temp Pulse Resp B/P Pulse Ox O2 Delivery O2 Flow Rate FiO2 07/26/16 12:09 98.1 83 20 118/69 98 Room Air 07/26/16 10:47 99.0 07/26/16 08:00 99.0 79 20 101/65 95 Room Air 07/26/16 04:00 99.5 75 18 101/59 96 Room Air 07/26/16 00:00 98.2 76 19 108/61 99 Room Air 07/25/16 20:33 100.2 78 19 109/67 98 Room Air 07/25/16 16:16 99.1 86 18 111/70 98 Room Air Height (Feet): 5 Height (Inches): 2.00 Weight (Pounds): 130 General Appearance: WD/WN, no acute distress HEENT: normocephalic, atraumatic, anicteric, mucous membranes moist Respiratory/Chest: chest wall non-tender, lungs clear, normal breath sounds, no respiratory distress Cardiovascular: normal peripheral pulses, normal rate, regular rhythm, no gallop/murmur Abdomen: soft, non tender, no organomegaly, non distended, no mass, hypoactive bowel sounds Extremities: no cyanosis, no clubbing Skin: no rash, no lesions, no ulcers Current Medications Medications (Trade) Dose Ordered Sig/Shelia Route PRN Reason Start Time Stop Time Status Last Admin Dose Admin Acetaminophen (Tylenol) 650 mg Q4H PRN ORAL Mild Pain/Temp > 100.5 07/20/16 22:00 08/19/16 21:59 07/23/16 23:03 Acetaminophen/ Hydrocodone Bitart ([place] 5/325) 1 tab Q4H PRN ORAL Moderate Pain (Pain Scale 4-6) 07/25/16 12:15 08/01/16 12:14 07/26/16 03:10 Dextrose/ Electrolytes (D5 0.45%NS W/ KCl 20mEq) 1,000 ml @ 75 mls/hr [id number] IV 07/25/16 13:00 08/24/16 12:59 07/26/16 02:20 Hydromorphone HCl (Dilaudid) 1 mg Q4H PRN IVP Severe Pain (Pain Scale 7-10) 07/25/16 12:09 07/28/16 20:44 07/26/16 10:17 Metronidazole 100 ml @ 100 mls/hr Q6H IVPB 07/22/16 20:00 07/29/16 19:59 07/26/16 13:32 Ondansetron HCl 4 mg 4 mg Q4H PRN IVP Nausea & Vomiting 07/21/16 21:00 08/20/16 20:59 07/25/16 14:04 Pantoprazole 40 mg 40 mg DAILY IVP 07/22/16 16:30 08/21/16 16:29 07/26/16 08:36 Piperacillin Sod/ Tazobactam Sod/ Dextrose (Zosyn/D5W) 110 ml @ 27.5 mls/hr EVERY 8 HOURS IVPB 07/22/16 17:00 07/31/16 16:59 07/26/16 13:34 Margy Childress M.D. Jul 26, 2016 15:46
[2016-07-26] MEDS ORDERED: NS 275ml ONE (15:59)
[2016-07-26 16:00] VITALS: BP 113/64
--- NOTE | 2016-07-26 17:04 | General Progress Note ---
Assessment/Plan Assessment/Plan Assessment - perforated appy - small bowel inflammation - ? reactive Recommendations - post op care - diet per surgery - f/u path - abx Subjective Allergies: Coded Allergies: No Known Allergies (Unverified , 07/20/16) Subjective seen in am abd pain better tolerating PO Objective Last 24 Hour Vital Signs Date Time Temp Pulse Resp B/P Pulse Ox O2 Delivery O2 Flow Rate FiO2 07/26/16 16:00 97.5 98 18 113/64 97 Room Air 07/26/16 12:09 98.1 83 20 118/69 98 Room Air 07/26/16 10:47 99.0 07/26/16 08:00 99.0 79 20 101/65 95 Room Air 07/26/16 04:00 99.5 75 18 101/59 96 Room Air 07/26/16 00:00 98.2 76 19 108/61 99 Room Air 07/25/16 20:33 100.2 78 19 109/67 98 Room Air Intake and Output 07/25/16 07/26/16 19:00 07:00 Intake Total 860 ml 1080 ml Output Total 20 ml 3295 ml Balance 840 ml -2215 ml Intake Oral 360 ml 480 ml IV Total 500 ml 600 ml Output Urine Total 3275 ml Drainage Total 20 ml 20 ml # Voids 2 5 Height (Feet): 5 Height (Inches): 2.00 Weight (Pounds): 130 Objective WDWN NCAT supple CTA RRR Soft wound OK, LLQ drain no edema non focal KARLO BOUCHER Jul 26, 2016 17:04
[2016-07-26 20:00] VITALS: BP 107/60
[2016-07-27] VITALS: BP 112/57
[2016-07-27] MEDS: metroNIDAZOLE 500mg 100 ML IVPB SCH ×3 (02:31→13:29)
[2016-07-27] MEDS: HYDROmorphone 1mg/ml Carpuject IVP PRN (03:32)
[2016-07-27 04:00] VITALS: BP 108/60
[2016-07-27] MEDS: D5 1/2NS w/KCl 20mEq 1,000 ML IV SCH (05:00)
[2016-07-27] MEDS: Piperacillin/Tazobactam 3.375 GM in D5W 110 ML IVPB SCH ×2 (05:58→13:32)
[2016-07-27 07:33] LABS: EOSINOPHILS % (AUTO) 3.3 % (0.0-3.0); MEAN CORPUSCULAR HGB CONC 34.3 G/DL (32.0-36.0); MEAN CORPUSCULAR VOLUME 88 FL (80-99); MEAN PLATELET VOLUME 5.2 FL (6.5-10.1); MONOCYTES % (AUTO) 10.8 % (1.0-10.0); PLATELET COUNT 543 K/UL (150-450); RED BLOOD COUNT 3.92 M/UL (4.70-6.10); RED CELL DISTRIBUTION WIDTH 11.7 % (11.6-14.8); WHITE BLOOD COUNT 7.6 K/UL (4.8-10.8)
[2016-07-27 08:00] VITALS: BP 107/60
[2016-07-27] MEDS: Pantoprazole Inj IVP SCH (08:25)
--- NOTE | 2016-07-27 09:09 | General Progress Note ---
Assessment/Plan Problem List: (1) Vomiting ICD Codes: R11.10 - Vomiting, unspecified SNOMED: 760382156 (2) Abdominal pain ICD Codes: R10.9 - Unspecified abdominal pain SNOMED: [id number] Status: progressing Assessment/Plan abx per id afebrile dc once cleared by id and surgeon Subjective ROS Limited/Unobtainable: Yes Constitutional: Reports: no symptoms Allergies: Coded Allergies: No Known Allergies (Unverified , 07/20/16) Objective Last 24 Hour Vital Signs Date Time Temp Pulse Resp B/P Pulse Ox O2 Delivery O2 Flow Rate FiO2 07/27/16 04:00 97.0 77 22 108/60 100 Room Air 07/27/16 02:39 97.9 07/27/16 00:00 97.9 76 21 112/57 96 Room Air 07/26/16 22:31 98.1 07/26/16 20:01 98.1 07/26/16 20:00 98.1 98 18 107/60 98 Room Air 07/26/16 16:00 97.5 98 18 113/64 97 Room Air 07/26/16 12:09 98.1 83 20 118/69 98 Room Air Intake and Output 07/26/16 07/27/16 19:00 07:00 Intake Total 1610.0 ml 840 ml Output Total 925 ml 2145 ml Balance 685.0 ml -1305 ml Intake Oral 810 ml 240 ml IV Total 800.0 ml 600 ml Output Urine Total 900 ml 2125 ml Drainage Total 25 ml 20 ml # Voids 4 2 # Bowel Movements 3 Laboratory Tests 07/27/16 06:30: White Blood Count 7.6, Red Blood Count 3.92L, Hemoglobin 11.8L, Hematocrit 34.3L , Mean Corpuscular Volume 88, Mean Corpuscular Hemoglobin 30.0, Mean Corpuscular Hemoglobin Concent 34.3, Red Cell Distribution Width 11.7, Platelet Count 543H, Mean Platelet Volume 5.2L, Neutrophils (%) (Auto) 53.0, Lymphocytes (%) (Auto) 32.0, Monocytes (%) (Auto) 10.8H, Eosinophils (%) (Auto) 3.3H, Basophils (%) (Auto) 1.0 Height (Feet): 5 Height (Inches): 2.00 Weight (Pounds): 130 Abdomen: tender Mo Gamez MD Jul 27, 2016 09:09
--- NOTE | 2016-07-27 11:08 | General Progress Note ---
Progress Note Progress Note Surgery: doing well post op. no acute events. afebrile, HD stable, exam benign. tolerating diet. ambulatory. +BM's Drain removed. d/c home cipro and flagyl Rx given follow up in my clinic next monday. call [phone] for appointment. okay to shower but no submersing in water diet as tolerated no heavy lifting but encourage activity Jamie Vail Jul 27, 2016 11:08
[2016-07-27] MEDS: Norco 5mg/325mg tab ORAL PRN (14:48)
--- NOTE | 2016-07-27 15:11 | Infectious Diseases Prog Note ---
Assessment/Plan Problems: (1) Appendicitis, acute Assessment & Plan: complicated with peroforation, S/P LAP APPY, on zosyn and flagyl , clinically improving, further recommendations are per general surgery , blood culture grew coag negative staph from one bottle , most likely contamination . would continue current antibiotics for now until drainage is removed, and switch to oral for another 10 days (2) Abdominal pain Assessment & Plan: resolved, due to the above, continue pain management as per primary Subjective Constitutional: Denies: anorexia, chills, drenching sweats, fatigue, fever, no symptoms, other HEENT: Denies: congestion, coryza, dysphagia, hearing change, no symptoms, other, visual change Respiratory: Denies: dry cough, no symptoms, other, productive cough, shortness of breath Breasts: Denies: discharge, no symptoms, other, swelling, tenderness Cardiovascular: Denies: chest pain, dyspnea on exertion, no symptoms, other, palpitations Gastrointestinal/Abdominal: Denies: bloating, blood in stool, constipation, diarrhea, nausea, no symptoms, other, vomiting Genitourinary: Denies: dysuria, frequency, hematuria, no symptoms, nocturia, other Neurologic: Denies: confusion, headache, no symptoms, numbness, other, weakness Psychiatric: Denies: anxiety, depression, no symptoms, other Skin: Denies: no symptoms, other, rash, ulcer Allergies: Coded Allergies: No Known Allergies (Unverified , 07/20/16) Subjective he was comfortable in bed, awake and not in distress, has surgical drainage in the LLQ Objective Vital Signs Last 24 Hour Vital Signs Date Time Temp Pulse Resp B/P Pulse Ox O2 Delivery O2 Flow Rate FiO2 07/27/16 08:00 97.5 89 20 107/60 96 Room Air 07/27/16 04:00 97.0 77 22 108/60 100 Room Air 07/27/16 02:39 97.9 07/27/16 00:00 97.9 76 21 112/57 96 Room Air 07/26/16 22:31 98.1 07/26/16 20:01 98.1 07/26/16 20:00 98.1 98 18 107/60 98 Room Air 07/26/16 16:00 97.5 98 18 113/64 97 Room Air Height (Feet): 5 Height (Inches): 2.00 Weight (Pounds): 130 General Appearance: WD/WN, no acute distress HEENT: normocephalic, atraumatic, anicteric Respiratory/Chest: chest wall non-tender, lungs clear, normal breath sounds, no respiratory distress, no accessory muscle use Cardiovascular: normal peripheral pulses, normal rate, regular rhythm, no JVD Abdomen: normal bowel sounds, soft, non tender, no organomegaly, non distended , no mass, no scars Extremities: no cyanosis, no clubbing Skin: no rash, no lesions Laboratory Tests Test 07/27/16 06:30 White Blood Count 7.6 K/UL (4.8-10.8) Red Blood Count 3.92 M/UL (4.70-6.10) L Hemoglobin 11.8 G/DL (14.2-18.0) L Hematocrit 34.3 % (42.0-52.0) L Mean Corpuscular Volume 88 FL (80-99) Mean Corpuscular Hemoglobin 30.0 PG (27.0-31.0) Mean Corpuscular Hemoglobin Concent 34.3 G/DL (32.0-36.0) Red Cell Distribution Width 11.7 % (11.6-14.8) Platelet Count 543 K/UL (150-450) H Mean Platelet Volume 5.2 FL (6.5-10.1) L Neutrophils (%) (Auto) 53.0 % (45.0-75.0) Lymphocytes (%) (Auto) 32.0 % (20.0-45.0) Monocytes (%) (Auto) 10.8 % (1.0-10.0) H Eosinophils (%) (Auto) 3.3 % (0.0-3.0) H Basophils (%) (Auto) 1.0 % (0.0-2.0) Current Medications Medications (Trade) Dose Ordered Sig/Shelia Route PRN Reason Start Time Stop Time Status Last Admin Dose Admin Acetaminophen (Tylenol) 650 mg Q4H PRN ORAL Mild Pain/Temp > 100.5 07/20/16 22:00 08/19/16 21:59 07/27/16 01:40 Acetaminophen/ Hydrocodone Bitart ([place] 5/325) 1 tab Q4H PRN ORAL Moderate Pain (Pain Scale 4-6) 07/25/16 12:15 08/01/16 12:14 07/27/16 14:48 Hydromorphone HCl (Dilaudid) 1 mg Q4H PRN IVP Severe Pain (Pain Scale 7-10) 07/25/16 12:09 07/28/16 20:44 07/27/16 03:32 Metronidazole (Flagyl) 100 ml @ 100 mls/hr Q6H IVPB 07/22/16 20:00 07/29/16 19:59 07/27/16 13:29 Ondansetron HCl 4 mg 4 mg Q4H PRN IVP Nausea & Vomiting 07/21/16 21:00 08/20/16 20:59 07/27/16 05:57 Pantoprazole 40 mg 40 mg DAILY IVP 07/22/16 16:30 08/21/16 16:29 07/27/16 08:25 Piperacillin Sod/ Tazobactam Sod/ Dextrose (Zosyn/D5W) 110 ml @ 27.5 mls/hr EVERY 8 HOURS IVPB 07/22/16 17:00 07/31/16 16:59 07/27/16 13:32 Margy Childress M.D. Jul 27, 2016 15:11
[2016-07-27 16:00] VITALS: BP 110/61
--- NOTE | 2016-07-27 16:52 | General Progress Note ---
Assessment/Plan Assessment/Plan ASSESSMENT: 1. Leukocytosis, likely secondary to dilated appendix with perforated appendix and abscess likely explaining findings. ALso the patient with small bowel inflammation noted as well. Has improved 2. Thrombocytosis - likely related to anemia 3. Anemia of chronic disease 4. Appendicitis versus inflammatory bowel enteritis. 5. Abdominal pain. 6. Transaminitis. 7. Sepsis. RECOMMENDATIONS: 1. Monitor CBC 2. Peripheral smear reviewed, no abnml noted 3. Monitor ESR and CRP 4. Antibiotics per ID service. 5. Appreciate GI, Surgical and ID recs 6. Continue to closely monitor from Hematology perspective. Thank you, Christopher Yanes MD Subjective Constitutional: Reports: no symptoms HEENT: Reports: no symptoms Cardiovascular: Reports: no symptoms Respiratory: Reports: no symptoms Gastrointestinal/Abdominal: Reports: no symptoms Genitourinary: Reports: no symptoms Neurologic/Psychiatric: Reports: no symptoms Endocrine: Reports: no symptoms Hematologic/Lymphatic: Reports: anemia Allergies: Coded Allergies: No Known Allergies (Unverified , 07/20/16) Subjective abd pain is better, no complaints, no bleeding reported overnight Objective Last 24 Hour Vital Signs Date Time Temp Pulse Resp B/P Pulse Ox O2 Delivery O2 Flow Rate FiO2 07/27/16 15:47 97.5 07/27/16 08:00 97.5 89 20 107/60 96 Room Air 07/27/16 04:00 97.0 77 22 108/60 100 Room Air 07/27/16 02:39 97.9 07/27/16 00:00 97.9 76 21 112/57 96 Room Air 07/26/16 22:31 98.1 07/26/16 20:00 98.1 98 18 107/60 98 Room Air Intake and Output 07/26/16 07/27/16 19:00 07:00 Intake Total 1610.0 ml 840 ml Output Total 925 ml 2145 ml Balance 685.0 ml -1305 ml Intake Oral 810 ml 240 ml IV Total 800.0 ml 600 ml Output Urine Total 900 ml 2125 ml Drainage Total 25 ml 20 ml # Voids 4 2 # Bowel Movements 3 Laboratory Tests 07/27/16 06:30: White Blood Count 7.6, Red Blood Count 3.92L, Hemoglobin 11.8L, Hematocrit 34.3L , Mean Corpuscular Volume 88, Mean Corpuscular Hemoglobin 30.0, Mean Corpuscular Hemoglobin Concent 34.3, Red Cell Distribution Width 11.7, Platelet Count 543H, Mean Platelet Volume 5.2L, Neutrophils (%) (Auto) 53.0, Lymphocytes (%) (Auto) 32.0, Monocytes (%) (Auto) 10.8H, Eosinophils (%) (Auto) 3.3H, Basophils (%) (Auto) 1.0 Height (Feet): 5 Height (Inches): 2.00 Weight (Pounds): 130 General Appearance: no apparent distress EENT: normal ENT inspection Neck: normal alignment Cardiovascular: normal rate Respiratory/Chest: normal breath sounds Abdomen: non tender Extremities: non-tender Edema: 1+ Leg (L), 1+ Leg (R) Edema: trace edema Neurologic: alert Skin: warm/dry Christopher Yanes Jul 27, 2016 16:52
[2016-07-27 20:00] VITALS: BP 121/69
[2016-07-27] MEDS ORDERED: NS 275ml ONE (22:57)
[2016-07-27] MEDS ORDERED: Tubing IV Secondary IV ONE (22:57)
--- NOTE | 2016-07-28 15:56 | Discharge Summary ---
Discharge Summary Hospital Course Date of Admission Jul 20, 2016 at 16:17 Date of Discharge Jul 27, 2016 at 22:58 Admitting Diagnosis persistant abdominal pain, vomiting HPI Timmy Singh is a 25 year old male who was admitted on Jul 20, 2016 at 16:17 for Persistant Abdominal Pain,Vomiting Hospital Course [id number] Discharge Discharge Disposition Patient was discharged to Home () Discharge Diagnoses: Verenice Mosley NP Jul 28, 2016 15:56
--- NOTE | 2016-07-29 01:28 | Discharge Summary 2 SIG ---
DATE OF ADMISSION: 07/20/2016 DATE OF DISCHARGE: 07/27/2016 CONSULTANTS: 1. Jamie Vail M.D. 2. Margy Childress M.D. 3. Kurt Rogers M.D. 4. Christopher Yanes M.D. BRIEF HOSPITAL COURSE: The patient is a 25-year-old male, who came from home, who was admitted approximately a week ago with complaints of abdominal pain, nausea, emesis and diarrhea. On evaluation and workup was found to have gastroenteritis. CT of the abdomen then revealed normal size appendix with tiny appendicolith and no inflammatory changes. No obstruction or signs of appendicitis. He was given IV hydration and pain management, symptoms resolved and he was discharged home in stable condition. She again presented to ED complaining of lower abdominal pain with nausea and vomiting. He was doing well at home, however, began to develop pain, which was described to be worse in the midline and the right lower quadrant. Evaluation at ED showed leukocytosis and repeat CT scan demonstrated dilated appendix and presence of appendicolith. There was no periappendiceal inflammation and no evidence of abscess or rupture. Surgical evaluation was done and the patient underwent a diagnostic laparoscopy with laparoscopic appendectomy on the 07/22/2016. Operative findings showed perforated appendicitis with perforation at the base of the appendix where a fecalith was dislodged. Fecaliths were removed through the perforation of the base and there was significant pelvic and retroappendiceal and cecal inflammation with periappendiceal abscess . He was seen by Infectious Disease specialist and was started on Unasyn and was eventually given Zosyn and Flagyl. Abdominal ultrasound showed suspicion for cholecystitis with gallstones and positive sonographic Hurley's. Dr. Rogers was consulted. HIDA scan was normal. Dr. Yanes was consulted for evaluation of leukocytosis with predominance of neutrophils. Leukocytosis was assessed to be secondary to dilated appendix and abscess. Peripheral smear was reviewed, no abnormalities were noted. The patient was started on p.o. intake and was doing well postoperative. Had an episode of low-grade fever, but eventually defervesced. Drain was removed. The patient was tolerating diet and has been ambulating and had a bowel movement. The patient was cleared for discharged home and was given a prescriptions for ciprofloxacin and Flagyl. Advised to follow up with the Surgical team next week. Advised okay to shower, but no submerging in water and no heavy lifting. He was then discharged home. FINAL DIAGNOSES: 1. Acute appendicitis complicated by perforation status post laparoscopic appendectomy. 2. Sepsis. 3. Postoperative fever, resolved. 4. Anemia of chronic disease. 5. Leukocytosis secondary to appendicitis. 6. Thrombocytosis. Mo Gamez M.D. I have been assigned to dictate discharge summary on this account and I was not involved in the patient's management. Verenice Mosley N.P. DR: HERMILA JOB#: [id number] CC: LONNIE
== END 2016-07-27 22:58 | disposition home or self-care (01) | DRG 710 ==
LOC: EMR 15:23 → 4E 16:17 → EDBEDREQ 19:12 → 4E 23:40 → 3E 07-24 06:56
PROC: 0DTJ4ZZ Resection of Appendix, Percutaneous Endoscopic Approach (ICD-10-PCS; principal; 2016-07-22 13:00)
DX: A41.9 Sepsis, unspecified organism (principal); K35.2 Acute appendicitis with generalized peritonitis; K38.1 Appendicular concretions; D63.8 Anemia in other chronic diseases classified elsewhere
CPT/HCPCS: 36415; 36600; 74177; 76700; 78266; 80048; 80053; 82803; 83690; 83735; 84100; 85007; 85025; 85060; 85610; 85651; 85730; 86140; 87040; 87181; 93970; 94003; 94150; 99284; J2250; J2405; J2710

== ENCOUNTER 2017-12-17 21:25 | Emergency (ER) | payer MEDICAID ==
[~2017-12-17] VITALS: Ht 147.3 cm; Wt 59.9 kg
[2017-12-17 21:33] VITALS: BP 117/78
[2017-12-17] MEDS ORDERED: levETIRAcetam 1,000mg/NS100ml 100 ML IVPB ONE (21:45)
[2017-12-17] MEDS ORDERED: Ketorolac 30mg Inj IV ONE (21:45)
--- NOTE | 2017-12-17 21:49 | Emergency Room Report ---
History of Present Illness General Chief Complaint: Syncope Source: Patient, Family Member, Friend, EMS Present Illness HPI This is a 27-year-old male with history of seizure in the past. This year alone he had a couple witnessed seizure. No medication however. Denies any drug use. He presents with chief complaint of head injury. He was using the restroom when friend heard a crash in the bathroom. They found him on the floor with a head injury and laceration to the scalp. He did have incontinence of his urine. No oral trauma. Unknown tonic-clonic activity. Patient complaining of head pain. 8 out of 10. Allergies: Coded Allergies: No Known Allergies (Unverified , 07/20/16) Patient History Past Medical History: see triage record, old chart reviewed Past Surgical History: appy Pertinent Family History: none Social History: Denies: smoking Immunizations: other Reviewed Nursing Documentation: PMH: Agreed; PSxH: Agreed Nursing Documentation-PMH Hx Cardiac Problems: No Hx Gastrointestinal Problems: Yes Hx Neurological Problems: No Review of Systems Eye: Denies: eye pain, blurred vision ENT: Denies: ear pain, nose congestion, throat swelling Respiratory: Denies: cough, shortness of breath Cardiovascular: Denies: chest pain, palpitations Gastrointestinal: Denies: abdominal pain, diarrhea, nausea, vomiting Musculoskeletal: Denies: back pain, joint pain Skin: Denies: rash Neurological: Reports: headache; Denies: numbness Endocrine: Denies: increased thirst, increased urine Hematologic/Lymphatic: Denies: easy bruising All Other Systems: negative except mentioned in HPI Physical Exam Vital Signs Date Time Temp Pulse Resp B/P (MAP) Pulse Ox O2 Delivery O2 Flow Rate FiO2 12/17/17 21:33 98.2 84 18 117/78 96 Room Air 98.2 vitals normal Sp02 EP Interpretation: reviewed, normal General Appearance: well appearing, no apparent distress, alert Head: normocephalic, other - 4 cm vertical laceration to the occiput Eyes: bilateral eye PERRL, bilateral eye EOMI ENT: hearing grossly normal, normal pharynx Neck: full range of motion, supple, no meningismus Respiratory: chest non-tender, lungs clear, normal breath sounds Cardiovascular #1: regular rate, rhythm, no murmur Gastrointestinal: normal bowel sounds, non tender, no mass, no organomegaly, no bruit, non-distended Musculoskeletal: back normal, gait/station normal, normal range of motion Psychiatric: mood/affect normal Skin: warm/dry Procedures Laceration/Wound Repair Laceration/Wound Repair : Consent: Verbal Wound Location: head Wound's Depth, Shape: into muscle, irregular, contused tissue Wound Length (cm): 4 Wound Explored: clean Irrigated w/ Saline (ccs): 1000 Betadine Prep?: Yes Anesthesia: 1% Lidocaine Volume Anesthetic (ccs): 5 Wound Debrided: minimal Wound Repaired With: cem Patient Tolerated: Well Complications: None Progress 5 cem placed. Medical Decision Making Diagnostic Impression: Primary Impression: Head injury, acute Qualified Codes: S09.90XA - Unspecified injury of head, initial encounter Additional Impressions: Occipital scalp laceration Qualified Codes: S01.01XA - Laceration without foreign body of scalp, initial encounter Seizure ER Course Patient presents with head injury and scalp laceration. This is most likely secondary to a seizure since he has incontinence of his urine. We'll put him on antiepileptic medication. No acute bleed. Patient does not drive and has no company driver license. I see no need to do a DMV report. Told patient that he cannot drive since he has seizure. He would need neurology follow-up. CT/MRI/US Diagnostic Results CT/MRI/US Diagnostic Results : Imaging Test Ordered: CT head Impression no acute bleed or fracture per radiologist. Last Vital Signs Date Time Temp Pulse Resp B/P (MAP) Pulse Ox O2 Delivery O2 Flow Rate FiO2 12/17/17 21:33 98.2 84 18 117/78 96 Room Air 98.2 Status: improved Disposition: HOME, SELF-CARE Condition: Stable Scripts Phenytoin Sodium Extended* (DILANTIN*) 100 Mg Capsule 300 MG ORAL BEDTIME, #90 CAP Prov: TORO MAGAÑA M.D. 12/17/17 Ibuprofen* (MOTRIN*) 600 Mg Tablet 600 MG ORAL THREE TIMES A DAY, #30 TAB 0 Refills Prov: TORO MAGAÑA M.D. 12/17/17 Additional Instructions: Follow-up in 7 days for staple removal. Return if worse. TORO MAGAÑA M.D. Dec 17, 2017 21:49
[2017-12-17 22:25] VITALS: BP 114/64
[2017-12-17] MEDS ORDERED: IBUPROFEN600 MG ORAL (23:00)
[2017-12-17] MEDS ORDERED: DILANTIN100 MG ORAL (23:00)
[2017-12-17 23:29] VITALS: BP 108/70
[2017-12-17 23:30] VITALS: BP 108/70
--- NOTE | 2017-12-18 10:03 | Diagnostic Imaging Report ---
Indication: Trauma, head pain, injury, history of seizure Technique: Continuous helical CT scanning of the head was performed without intravenous contrast material. Axial and coronal 5 mm sections were generated. Radiation dose was minimized using automated exposure control Dose: Total Dose Length Product - DLP 1403.[address] Dose Index - CTDIvol(s) 70.38 mGy. Comparison: none Findings: The ventricular system is normal in size and configuration. There is no shift of midline structures. No abnormal extra-axial fluid collections are noted. There is no evidence of intracerebral bleeding. No other abnormal high or low density areas are noted within the brain. The calvarium is intact. Visualized orbits and sinuses are unremarkable. There is minimal swelling of the left parietal scalp near the vertex Impression: Essentially normal CT scan of the head without contrast material. Minimal extracranial scalp soft tissue contusion This agrees with the preliminary interpretation provided overnight by [facility]. The CT scanner at [facility] is accredited by the [employer] and the scans are performed using protocols designed to limit radiation exposure to as low as reasonably achievable to attain images of sufficient resolution adequate for diagnostic evaluation.
== END 2017-12-17 23:33 | disposition home or self-care (01) ==
LOC: EMR 21:48
DX: S09.8XXA Other specified injuries of head, initial encounter (principal); S01.01XA Laceration without foreign body of scalp, initial encounter; W19.XXXA Unspecified fall, initial encounter; Y92.012 Bathroom of single-family (private) house as the place of occurrence of the external cause; R56.9 Unspecified convulsions
CPT/HCPCS: 12032; 70450; 96374; 96375; 99285; J1885; J1953; Z7502; 96361; 99284

== ENCOUNTER 2017-12-29 16:05 | Emergency (ER) | payer MEDICAID ==
[~2017-12-29] VITALS: Ht 152.4 cm; Wt 68.0 kg
[~2017-12-29 16:05] MED LIST changes: +DILANTIN100 MG ORAL; +IBUPROFEN600 MG ORAL
[2017-12-29 16:30] VITALS: BP 98/71
--- NOTE | 2017-12-29 16:39 | Emergency Room Report ---
History of Present Illness General Chief Complaint: Wound Recheck/Suture Removal Source: Patient Present Illness HPI 27-year-old male patient presents ER for staple removal from scalp. Reports was previously seen in the ER for wound repair over a week ago. Reports had wound check performed a few days ago and was told that cem are not ready to be removed. Reports healing well. Denies bleeding from site. Denies fever, chest pain, shortness of breath. Allergies: Coded Allergies: No Known Allergies (Unverified , 07/20/16) Patient History Past Medical History: see triage record Reviewed Nursing Documentation: PMH: Agreed; PSxH: Agreed Nursing Documentation-PMH Past Medical History: No History, Except For Hx Cardiac Problems: No Hx Gastrointestinal Problems: Yes Hx Neurological Problems: No Review of Systems All Other Systems: negative except mentioned in HPI Physical Exam Vital Signs Date Time Temp Pulse Resp B/P (MAP) Pulse Ox O2 Delivery O2 Flow Rate FiO2 12/29/17 16:23 98.4 67 16 98/71 97 Room Air 98.4 Sp02 EP Interpretation: reviewed, normal General Appearance: well appearing, no apparent distress, alert, GCS 15, non- toxic Head: normocephalic, atraumatic Eyes: bilateral eye normal inspection, bilateral eye PERRL ENT: hearing grossly normal, normal pharynx, no angioedema, normal voice, uvula midline, moist mucus membranes Neck: full range of motion Respiratory: lungs clear, normal breath sounds, no rhonchi, no respiratory distress, no accessory muscle use, no wheezing, speaking full sentences Cardiovascular #1: regular rate, rhythm, no edema Musculoskeletal: back normal, digits/nails normal, gait/station normal, normal range of motion, non-tender Neurologic: alert, oriented x3, responsive, motor strength/tone normal, sensory intact Psychiatric: mood/affect normal Skin: laceration - healing 1 cm laceration on posterior scalp, crusting and scabbing noted, no drainage, no surrounding erythema or edema Medical Decision Making PA Attestation Dr. Perez is my supervising Physician whom patient management has been discussed with. Diagnostic Impression: Primary Impression: Removal of cem ER Course Pt. presents to the ED requesting staple removal from scalp. Ddx considered but are not limited to cellulitis, abscess, wound check, folliculitis. Vital signs: are WNL, pt. is afebrile Ordered Bacitracin. ER COURSE: Wound has no signs of infection., no erythema, edema, or tenderness to palpation. 4 cem removed. Bacitracin applied. Patient tolerated procedure well without complications. ER precautions given. DISCHARGE: Patient instructed to continue with medications per initial ER provider instructions. At this time pt. is stable for d/c to home. Patient resting comfortably, in no acute distress, nontoxic appearing. Will provide printed patient care instructions and any necessary prescriptions. Care plan and follow up instructions have been discussed with the patient prior to discharge. Patient instructed to follow-up with primary care provider for further treatment and referral. Patient questions asked and answered. ER precautions given. Patient instructed to return to ER immediately for any new or worsening of symptoms including but not limited to fever, worsening of pain symptoms. - Please note that this Emergency Department Report was dictated using [employer] professor technology software, occasionally this can lead to erroneous entry secondary to interpretation by the dictation equipment. Last Vital Signs Date Time Temp Pulse Resp B/P (MAP) Pulse Ox O2 Delivery O2 Flow Rate FiO2 12/29/17 16:30 98.4 84 16 98/71 97 Room Air 98.4 Disposition: HOME, SELF-CARE Condition: Stable Patient Instructions: Sutured Wound Care, [id number], Wound Check Additional Instructions: Followup with primary care provider in 3 -5 days. Take medications as directed. Patient questions asked and answered. ER precautions given, patient instructed to return to ER immediately for any new or worsening of symptoms. Randell Platt Dec 29, 2017 16:39
[2017-12-29 16:44] VITALS: BP 98/71
[2017-12-29] MEDS ORDERED: Bacitracin Oint UD TOPIC ONE (16:45)
== END 2017-12-29 16:44 | disposition home or self-care (01) ==
LOC: EMR 16:37
DX: Z48.02 Encounter for removal of sutures (principal); Z48.817 Encounter for surgical aftercare following surgery on the skin and subcutaneous tissue
CPT/HCPCS: 99282